=== PATIENT | female | born 1970 | race Caucasian/White ===

== ENCOUNTER 2020-09-13 10:38 | Inpatient (IN) | payer BC, SELFPAY ==
[2020-09-13] VITALS (10 sets, daily range): BP systolic 102–193; BP diastolic 56–143; PULSE 90–124; RESP 14–24; TEMP 36.6–37; O2SAT 21–98; BMI 49.9
--- NOTE | 2020-09-13 11:02 | CT_ITS ---
WS: [id number] CT cervical spine. Additional two-dimensional coronal and sagittal reconstruction was performed. 09/13 Clinical Data: fall, neck pain with rt side radiculopathy Comparison: None. DLP: 1168.[address] scans at [facility] use at least one of these dose optimization techniques: automat ed exposure control; mA and/or kV adjustment per patient size (includes targeted exams where dose is matched to clinical indication); or iterative reconstruction. Findings: No compression fractures are seen. There is disc space narrowing at C4-C5, C5-C6 and C6-C7. There is loss of the normal lordotic curvature. Anterior and posterior osteophyte formation is seen from C4 th rough C7. The spinous processes are in good alignment. The odontoid is unremarkable. There is no prev ertebral soft tissue swelling. The soft tissues of the cervical spine and the lung apices are not rem arkable. C2-C3: No disc bulge, canal stenosis or foraminal stenosis is seen. C3-C4: No disc bulge, canal stenosis or foraminal stenosis is seen. C4-C5: There is a posterior osteophyte disc complex causing mild canal stenosis. C5-C6: There is an osteophyte disc complex causing mild canal stenosis. C6-C7: There is a minimal osteophyte disc complex causing mild canal stenosis. C7-T1: No disc bulge, canal stenosis or foraminal stenosis is seen. CT/CT cervical spin wo con* [id number] Impression: 1. Negative for compression fracture. 2. 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 3. Posterior osteophyte disc complex causing mild canal stenosis at C4-C5 throu gh C6-C7.
--- NOTE | 2020-09-13 11:02 | XR_ITS ---
WS: [id number] Portable AP upright chest, 09/13/2020 Clinical Data: SOB Comparison: None. Findings: The heart is enlarged. The pulmonary vascularity is not increased. No pneumonia or pneumoth orax is seen. No nodules, masses or effusions are present. The aortic arch and descending aorta show tortuosity. XR/XR chest 1V portable [id number] Impression: Atherosclerosis and cardiomegaly.
--- NOTE | 2020-09-13 11:03 | ECG_ITS ---
[facility] Test Date: 2020-09-13 Pat Name: Venus Neil Department: Room: Gender: Female Services Host: : [id number] Requested By: Rocio Partida Order Number: [id number] José MD: Caitlin Lindo M.D. Measurements Intervals [place] Rate: 140 P: [place]: QRS: 49 QRSD: 99 T: 30 QT: 294 QTc: 449 Interpretive Statements ATRIAL FIBRILLATION WITH RAPID VENTRICULAR RESPONSE LOW QRS VOLTAGE IN PRECORDIAL LEADS [QRS DEFLECTION < 1.0 mV IN CHEST LEADS] NONSPECIFIC ST & T-WAVE ABNORMALITY No previous ECG available for comparison Electronically Signed On 09-13-2020 19:18:29 COMMUNITY DEVELOPMENT TECHNICIAN by Caitlin Lindo M.D. [id number]
[2020-09-13] MEDS: HYDROcodone-acetaminophen 5-325 mg Tablet 1 TAB PO ×2 (11:30→17:10)
--- NOTE | 2020-09-13 11:32 | ED_ITS ---
Documented by User: MANNY Magallon 09/13/20 17:19 HPI - Fall General: Chief Complaint: Fall Stated Complaint: FALL, NECK PAIN, DIFFICUTLY BREATHING Time Seen by Provider: 09/13/20 10:44 History of Present Illness: HPI Narrative: 49-year-old pleasant female presents to the emergency department with acute onset shortness of breath that started this morning. She reports sustained a [facility] on Friday, 2 days ago, reports onset of neck pain with radiculopathy pain to the right scapula past 24 hours. She reports bruising noted to the right breast from her fall. She attributes shortness of breath to pain she is experiencing in her neck. She reports history of hypertension, states does not have a primary care provider, denies bilateral lower extremity swelling or pain. She reports feels she cannot breathe upon exam. Denies cough congestion fever or chills. Has history of asthma. MD complaint: fall Onset (ago): day(s) (2) Fall from: standing Fall witnessed: yes, by bystander Place fall occurred: other ([employer]) Loss of consciousness: None Prolonged down time: no Symptoms prior to fall: none Location of injury: neck and chest Severity: moderate Quality: sharp and aching Associated symptoms-after fall: Reports neck pain and short of breath; Denies abdominal pain, chest pain, difficulty walking, headache(s) or lightheadedness Review of Systems General: Reports: 10 or more systems reviewed and unremarkable except in HPI and below Const: Reports: fatigue; Denies: fever(s), chills, body aches, malaise, night sweats or diaphoresis Eyes: Denies: blurry vision or eye redness ENMT: Denies: throat pain, dental pain or disequilibrium Card: Reports: dyspnea on exertion and orthopnea; Denies: chest pain, palpitations, irregular heart rhythm, lightheadedness or syncope Resp: Reports: dyspnea; Denies: productive cough, non-productive cough, wheezing or chest congestion GI: Denies: abdominal pain, nausea or vomiting : Denies: difficulty voiding or dysuria Musc: Reports: neck pain; Denies: back pain, joint pain, joint stiffness, muscle cramps or muscle weakness Skin/Breast: Denies: rash or pruritus Neuro: Denies: headache(s), weakness in extremities, difficulty walking, frequent falls or behavioral changes Psych: Denies: anxiety, depression, hopelessness, change in appetite or irritability Сергей/Lymph: Denies: easy bruising PFSH ED PFSH: Medical History (Updated 09/14/20 @ 12:22 by Eulalia Penny MD, [facility]) Asthma HTN (hypertension) Hypothyroidism Nonadherence to medication Obesity Post hysterectomy menopause Surgical History (Updated 09/13/20 @ 18:00 by Padma Ureña MD) H/O hysterectomy with oophorectomy History of cholecystectomy Family History (Updated 09/13/20 @ 18:01 by Padma Ureña MD) Mother CAD (coronary artery disease) Clotting disorder Social History (Updated 09/13/20 @ 18:01 by Padma Ureña MD) Smoking and tobacco status: never smoked Alcohol intake: current Alcohol intake frequency: holidays/special occasions only Substance/Drug Use: never Physical Exam Const: COMMON NORMALS: no acute distress, patient oriented x3, alert and well nourished EXAM LIMITATIONS: no altered mental status and no physical limitations GENERAL APPEARANCE: cooperative, well kempt, well developed, anxious and well hydrated; not comfortable, not ill appearing and not frail appearing NUTRITIONAL APPEARANCE: obese morbidly obese ORIENTATION/CONSCIOUSNESS: Yes awake, Yes oriented to person, Yes oriented to place and Yes oriented to time HENMT: COMMON NORMALS: normocephalic, atraumatic, Normal external nose present and moist oral mucous membranes HEAD & SCALP: normal to inspection, normocephalic and atraumatic FACE & SINUS: normal facial exam and face symmetric NOSE: Normal external nose present MOUTH: Normal oral and palatal mucosa present, lip normal and tongue normal Eye: COMMON NORMALS: Equal, round and reactive pupils present and EOMs intact bilaterally GENERAL EYE: appearance normal, both eyes and all related structures ALIGNMENT: Yes alignment normal EYELID: eyelids normal PUPIL : Yes Equal, round and reactive pupils present Neck/C-Spine: COMMON NORMALS: full ROM, no lymphadenopathy and supple GENERAL: Yes normal visual inspection, Yes trachea midline, No anterior neck swelling and Yes tender CERVICAL SPINE: Yes cervical ROM normal, Yes pain with cervical ROM with lateral flexion to the right, with lateral flexion to the left, with rotation to the right and with rotation to the left, Yes Cervical spine tenderness C3, C4, C5 and C6, Yes Paracervical muscle tenderness right and Yes Trapezius muscle tenderness right Lymph: LYMPHATIC: lymphedema (BLE) Chest: COMMONS NORMALS: normal inspection of the chest and normal palpation of entire chest wall Breast/axilla inspection: Yes abnormal inspection of the breast (ecchymosis to the anterior breast/chest wall, rt) Resp: COMMON NORMALS: normal respiratory effort, No retractions and clear to auscultation bilaterally EFFORT & INSPECTION: Yes able to speak in complete sentences, Yes symmetric chest movement, No abnormal respiratory pattern, Yes tachypneic, Yes labored, No Actively coughing, No retractions and No audible wheezes AUSCULTATION: clear to auscultation bilaterally and diminished lung sounds bilateral Cardio: COMMON NORMALS: S1 normal heart sound present, S2 normal heart sound present and Peripheral pulses 2+ throughout PALPATION: normal PMI RATE: tachycardic RHYTHM: abnormal rhythm irregularly irregular HEART SOUNDS: S1 normal heart sound present and S2 normal heart sound present PERIPHERAL PULSES: Peripheral pulses 2+ throughout GI: COMMON NORMALS: Normal to inspection, nondistended, normoactive bowel sounds present, Soft to palpation and non-tender INSPECTION: Yes normal to inspection PALPATION: Yes Soft to palpation : COMMON NORMALS: Yes no CVA tenderness BLADDER/KIDNEY EXAM: Yes no CVA tenderness Back/Pelvis: COMMON NORMALS: no CVA tenderness and thoracic and lumbar spine normal to inspection Extremity: COMMON NORMALS: normal to inspection and capillary refill normal Neuro: COMMON NORMALS: patient oriented x3 and no focal motor deficits SENSORIUM/ORIENTATION: Yes alert, Yes oriented to person, Yes oriented to place and Yes oriented to time Psych: COMMON NORMALS: mental status grossly normal, Normal thought process present and cooperative APPEARANCE: Yes well kempt ACTIVITY/MOTOR BEH AVIOR: Yes appropriate eye contact THOUGHT PROCESS: Normal thought process present Skin: COMMON NORMALS: no rashes or lesions noted and turgor normal GENERAL SKIN EXAM: no rashes or lesions noted and turgor normal Course ED course: 49-year-old female patient presents to the emergency department with elevated heart rate, 140s, irregular rhythm auscultated upon physical exam. EKG revealed atrial fibrillation with RVR, new onset atrial fibrillation, transfer of care to Dr. Penny -patient will most likely require admission due to new onset. Cardizem initiated. Vital Signs: Vital signs: Vital Signs Temperature 98.3 F 09/14/20 11:46 Pulse Rate 93 09/14/20 11:46 Respiratory Rate 18 09/14/20 11:46 Blood Pressure 150/118 09/14/20 11:46 Pulse Oximetry 93 09/14/20 11:46 MDM - Fall Lab Data: Labs: Lab Results 09/13/20 09/13/20 09/13/20 Range/Units 11:13 11:32 11:32 WBC 9.3 (4.0-10.0) 10^3/ uL RBC 4.70 (4.1-5.3) 10^6/u L Hgb 13.9 (11.5-15.3) g/dL Hct 44.8 (37.0-47.0) % MCV 95.3 (81-99) fL MCH 29.6 (28.0-34.0) pg MCHC 31.0 (30.0-36.0) g/dL RDW 13.5 (12.1-15.1) % Plt Count 240 (130-400) 10^3/c mm MPV 11.1 H (7.4-10.4) fL Neut % (Auto) 72.0 % Lymph % (Auto) 21.5 % [place] % (Auto) 5.5 % Eos % (Auto) 0.6 % Baso % (Auto) 0.2 % Neut # (Auto) 6.71 (1.8-7.7) 10^3/u L Lymph # (Auto) 2.0 (0.8-4.8) 10^3/u L [place] # (Auto) 0.5 (0.2-0.9) 10^3/u L Eos # (Auto) 0.1 (0.0-0.8) 10^3/u L Baso # (Auto) 0.0 (0.0-0.1) 10^3/u L Nucleated RBC % (a uto) 0 % Nucleated RBCs # 0.0 /100WBC D-Dimer 1.67 H (0-0.59) ug/mIFE U Sodium (136-145) mmol/L Potassium (3.5-5.1) mmol/L Chloride (98-107) mmol/L Carbon Dioxide (22-29) mmol/L Anion Gap (5-19) BUN (6-20) mg/dL Creatinine (0.5-0.9) mg/dL GFR Calculation (90-130) mL/min Glucose (65-115) mg/dL Calculated Osmolal ity (285-295) mOsm/k g Calcium (8.5-10.5) mg/dL Total Bilirubin (0.15-1.2) mg/dL AST (0-32) U/L ALT (0-33) U/L Alkaline Phosphata se (35-105) IU/L Troponin T Baselin e (0-10) ng/L NT-Pro-B Natriuret Pep (0-125) pg/mL Total Protein (6.6-8.7) g/dL Albumin (3.5-5.2) g/dL Globulin (1.3-4.6) g/dL Urine Color Yellow (Yellow) Urine Appearance Hazy A (CLEAR) Urine pH 5 (5-7) Ur Specific Gravit y 1.020 (1.005-1.030) Urine Protein 1+ H (Negative) Urine Glucose (UA) Norm (Normal) Urine Ketones Negative (Negative) Urine Blood Trace H (Negative) Urine Nitrate Positive H (Negative) Urine Bilirubin Neg (Negative) Urine Urobilinogen Norm (Negative) mg/dL Ur Leukocyte Zuleyma ase Negative (Negative) Urine RBC 0-4 H (0-2) /hpf Urine WBC 15-25 H (0-5) /hpf Ur Squamous Epith Cells 5-10 H (0-5) /hpf Amorphous Sediment Not Reportable Urine Bacteria 4+ H (NONE) /hpf 09/13/20 09/13/20 Range/Units 11:32 11:32 WBC (4.0-10.0) 10^3/ uL RBC (4.1-5.3) 10^6/u L Hgb (11.5-15.3) g/dL Hct (37.0-47.0) % MCV (81-99) fL MCH (28.0-34.0) pg MCHC (30.0-36.0) g/dL RDW (12.1-15.1) % Plt Count (130-400) 10^3/c mm MPV (7.4-10.4) fL Neut % (Auto) % Lymph % (Auto) % [place] % (Auto) % Eos % (Auto) % Baso % (Auto) % Neut # (Auto) (1.8-7.7) 10^3/u L Lymph # (Auto) (0.8-4.8) 10^3/u L [place] # (Auto) (0.2-0.9) 10^3/u L Eos # (Auto) (0.0-0.8) 10^3/u L Baso # (Auto) (0.0-0.1) 10^3/u L Nucleated RBC % (a uto) % Nucleated RBCs # /100WBC D-Dimer (0-0.59) ug/mIFE U Sodium 140 (136-145) mmol/L Potassium 4.5 (3.5-5.1) mmol/L Chloride 105 (98-107) mmol/L Carbon Dioxide 26 (22-29) mmol/L Anion Gap 13.5 (5-19) BUN 16 (6-20) mg/dL Creatinine 0.8 (0.5-0.9) mg/dL GFR Calculation 75.6 L (90-130) mL/min Glucose 110 (65-115) mg/dL Calculated Osmolal ity 292 (285-295) mOsm/k g Calcium 9.4 (8.5-10.5) mg/dL Total Bilirubin 0.4 (0.15-1.2) mg/dL AST 23 (0-32) U/L ALT 29 (0-33) U/L Alkaline Phosphata se 113 H (35-105) IU/L Troponin T Baselin e 24 H (0-10) ng/L NT-Pro-B Natriuret Pep 1457 H (0-125) pg/mL Total Protein 6.9 (6.6-8.7) g/dL Albumin 3.9 (3.5-5.2) g/dL Globulin 3.0 (1.3-4.6) g/dL Urine Color (Yellow) Urine Appearance (CLEAR) Urine pH (5-7) Ur Specific Gravit y (1.005-1.030) Urine Protein (Negative) Urine Glucose (UA) (Normal) Urine Ketones (Negative) Urine Blood (Negative) Urine Nitrate (Negative) Urine Bilirubin (Negative) Urine Urobilinogen (Negative) mg/dL Ur Leukocyte Zuleyma ase (Negative) Urine RBC (0-2) /hpf Urine WBC (0-5) /hpf Ur Squamous Epith Cells (0-5) /hpf Amorphous Sediment Urine Bacteria (NONE) /hpf Discharge Plan Discharge Patient Disposition: Admitted As Inpatient Admit Provider: Padma Ureña Clinical Impression: New onset atrial fibrillation, Hypertensive urgency Acute congestive heart failure Qualifiers: Heart failure type: unspecified Qualified Code(s): I50.9 - Heart failure, unspecified Condition: Stable Sign Out Sign Out Data: Patient Sign Out occurred on 09/13/20 at 11:40. Patient's care was discussed, and care was transferred from to Eulalia Penny MD, [facility]. Coding Level of Care Code ED [employer] for Chg Fwd Exam Comprehensive Documented by User: Elualia Penny MD, MSM 09/14/20 12:23 HPI - Fall General: Chief Complaint: Fall Stated Complaint: FALL, NECK PAIN, DIFFICUTLY BREATHING Time Seen by Provider: 09/13/20 10:44 [facility] ED PFSH: Medical History (Updated 09/14/20 @ 12:22 by Eulalia Penny MD, [facility]) Asthma HTN (hypertension) Hypothyroidism Nonadherence to medication Obesity Post hysterectomy menopause Surgical History (Updated 09/13/20 @ 18:00 by Padma Ureña MD) H/O hysterectomy with oophorectomy History of cholecystectomy Family History (Updated 09/13/20 @ 18:01 by Padma Ureña MD) Mother CAD (coronary artery disease) Clotting disorder Social History (Updated 09/13/20 @ 18:01 by Padma Ureña MD) Smoking and tobacco status: never smoked Alcohol intake: current Alcohol intake frequency: holidays/special occasions only Substance/Drug Use: never Course Vital Signs: Vital signs: Vital Signs Temperature 98.3 F 09/14/20 11:46 Pulse Rate 93 09/14/20 11:46 Respiratory Rate 18 09/14/20 11:46 Blood Pressure 150/118 09/14/20 11:46 Pulse Oximetry 93 09/14/20 11:46 MDM - Fall MDM Narrative: Medical decision making narrative: Kindly evaluate the midlevel providers note for complete history and physical. I also evaluated this patient and examined her today. 49-year-old female patient who came into the emergency department with pain following a fall a few days ago. However during evaluation she was noted to be in atrial fibrillation with rapid ventricular response. She has no prior history of A. fib. She was worked up as she appears to be in congestive heart failure also. She was also significantly hypotensive and required multiple intravenous medications to bring down her blood pressure to acceptable levels. She also required intravenous diltiazem for rate control. She is admitted for further evaluation and management as a new onset A. fib. Medical Records: Attestation: I reviewed the patient's medical records. Lab Data: Attestation: I reviewed the patient's lab results. Labs: Lab Results 09/13/20 09/13/20 09/13/20 Range/Units 11:13 11:32 11:32 WBC 9.3 (4.0-10.0) 10^3/ uL RBC 4.70 (4.1-5.3) 10^6/u L Hgb 13.9 (11.5-15.3) g/dL Hct 44.8 (37.0-47.0) % MCV 95.3 (81-99) fL MCH 29.6 (28.0-34.0) pg MCHC 31.0 (30.0-36.0) g/dL RDW 13.5 (12.1-15.1) % Plt Count 240 (130-400) 10^3/c mm MPV 11.1 H (7.4-10.4) fL Neut % (Auto) 72.0 % Lymph % (Auto) 21.5 % [place] % (Auto) 5.5 % Eos % (Auto) 0.6 % Baso % (Auto) 0.2 % Neut # (Auto) 6.71 (1.8-7.7) 10^3/u L Lymph # (Auto) 2.0 (0.8-4.8) 10^3/u L [place] # (Auto) 0.5 (0.2-0.9) 10^3/u L Eos # (Auto) 0.1 (0.0-0.8) 10^3/u L Baso # (Auto) 0.0 (0.0-0.1) 10^3/u L Nucleated RBC % (a uto) 0 % Nucleated RBCs # 0.0 /100WBC D-Dimer 1.67 H (0-0.59) ug/mIFE U Sodium (136-145) mmol/L Potassium (3.5-5.1) mmol/L Chloride (98-107) mmol/L Carbon Dioxide (22-29) mmol/L Anion Gap (5-19) BUN (6-20) mg/dL Creatinine (0.5-0.9) mg/dL GFR Calculation (90-130) mL/min Glucose (65-115) mg/dL Calculated Osmolal ity (285-295) mOsm/k g Calcium (8.5-10.5) mg/dL Total Bilirubin (0.15-1.2) mg/dL AST (0-32) U/L ALT (0-33) U/L Alkaline Phosphata se (35-105) IU/L Troponin T Baselin e (0-10) ng/L NT-Pro-B Natriuret Pep (0-125) pg/mL Total Protein (6.6-8.7) g/dL Albumin (3.5-5.2) g/dL Globulin (1.3-4.6) g/dL Urine Color Yellow (Yellow) Urine Appearance Hazy A (CLEAR) Urine pH 5 (5-7) Ur Specific Gravit y 1.020 (1.005-1.030) Urine Protein 1+ H (Negative) Urine Glucose (UA) Norm (Normal) Urine Ketones Negative (Negative) Urine Blood Trace H (Negative) Urine Nitrate Positive H (Negative) Urine Bilirubin Neg (Negative) Urine Urobilinogen Norm (Negative) mg/dL Ur Leukocyte Zuleyma ase Negative (Negative) Urine RBC 0-4 H (0-2) /hpf Urine WBC 15-25 H (0-5) /hpf Ur Squamous Epith Cells 5-10 H (0-5) /hpf Amorphous Sediment Not Reportable Urine Bacteria 4+ H (NONE) /hpf 09/13/20 09/13/20 Range/Units 11:32 11:32 WBC (4.0-10.0) 10^3/ uL RBC (4.1-5.3) 10^6/u L Hgb (11.5-15.3) g/dL Hct (37.0-47.0) % MCV (81-99) fL MCH (28.0-34.0) pg MCHC (30.0-36.0) g/dL RDW (12.1-15.1) % Plt Count (130-400) 10^3/c mm MPV (7.4-10.4) fL Neut % (Auto) % Lymph % (Auto) % [place] % (Auto) % Eos % (Auto) % Baso % (Auto) % Neut # (Auto) (1.8-7.7) 10^3/u L Lymph # (Auto) (0.8-4.8) 10^3/u L [place] # (Auto) (0.2-0.9) 10^3/u L Eos # (Auto) (0.0-0.8) 10^3/u L Baso # (Auto) (0.0-0.1) 10^3/u L Nucleated RBC % (a uto) % Nucleated RBCs # /100WBC D-Dimer (0-0.59) ug/mIFE U Sodium 140 (136-145) mmol/L Potassium 4.5 (3.5-5.1) mmol/L Chloride 105 (98-107) mmol/L Carbon Dioxide 26 (22-29) mmol/L Anion Gap 13.5 (5-19) BUN 16 (6-20) mg/dL Creatinine 0.8 (0.5-0.9) mg/dL GFR Calculation 75.6 L (90-130) mL/min Glucose 110 (65-115) mg/dL Calculated Osmolal ity 292 (285-295) mOsm/k g Calcium 9.4 (8.5-10.5) mg/dL Total Bilirubin 0.4 (0.15-1.2) mg/dL AST 23 (0-32) U/L ALT 29 (0-33) U/L Alkaline Phosphata se 113 H (35-105) IU/L Troponin T Baselin e 24 H (0-10) ng/L NT-Pro-B Natriuret Pep 1457 H (0-125) pg/mL Total Protein 6.9 (6.6-8.7) g/dL Albumin 3.9 (3.5-5.2) g/dL Globulin 3.0 (1.3-4.6) g/dL Urine Color (Yellow) Urine Appearance (CLEAR) Urine pH (5-7) Ur Specific Gravit y (1.005-1.030) Urine Protein (Negative) Urine Glucose (UA) (Normal) Urine Ketones (Negative) Urine Blood (Negative) Urine Nitrate (Negative) Urine Bilirubin (Negative) Urine Urobilinogen (Negative) mg/dL Ur Leukocyte Zuleyma ase (Negative) Urine RBC (0-2) /hpf Urine WBC (0-5) /hpf Ur Squamous Epith Cells (0-5) /hpf Amorphous Sediment Urine Bacteria (NONE) /hpf Imaging Data^: Other CT: Radiologist's impression: [place] [address] CT Scan Report Signed Patient: Jason Neil #: [id number] : 1970Acct#:[id number] Age/Sex: 49 / FADM Date: 09/13/20 Loc: ERRoom/Bed: Attending Dr: Ordering Provider/Ordering MD: Rocio Trujillo Date of Service: 09/13/20 Procedure(s): CT cervical spin wo con* [id number] Accession Number(s): [id number] Report Number: [id number] WS: [id number] CT cervical spine. Additional two-dimensional coronal and sagittal reconstruction was performed. 09/13/2020 Clinical Data: fall, neck pain with rt side radiculopathy Comparison: None. DLP: 1168.[address] scans at [facility] use at least one of these dose optimization techniques: automated exposure control; mA and/or kV adjustment per patient size (includes targeted exams where dose is matched to clinical indication); or iterative reconstruction. Findings: No compression fractures are seen. There is disc space narrowing at C4-C5, C5-C6 and C6-C7. There is loss of the normal lordotic curvature. Anterior and posterior osteophyte formation is seen from C4 through C7. The spinous processes are in good alignment. The odontoid is unremarkable. There is no prevertebral so ft tissue swelling. The soft tissues of the cervical spine and the lung apices are not remarkable. C2-C3: No disc bulge, canal stenosis or foraminal stenosis is seen. C3-C4: No disc bulge, canal stenosis or foraminal stenosis is seen. C4-C5: There is a posterior osteophyte disc complex causing mild canal stenosis. C5-C6: There is an osteophyte disc complex causing mild canal stenosis. C6-C7: There is a minimal osteophyte disc complex causing mild canal stenosis. C7-T1: No disc bulge, canal stenosis or foraminal stenosis is seen. CT/CT cervical spin wo con* [id number] Impression: 1. Negative for compression fracture. 2. 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 3. Posterior osteophyte disc complex causing mild canal stenosis at C4-C5 through C6-C7. Dictated By:Carolina Macias MD Signed By:Carolina Macias MDSigned Date/Time:09/13/20 1203 DD/ 1153 CTA Chest: Radiologist's impression: [address] [address] [address] Scan Report Signed Patient: Jason Neil #: [id number] : 1970Acct#:[id number] Age/Sex: 49 / FADM Date: 09/13/20 [facility] Attending Dr: Ordering Provider/Ordering MD: Eulalia Penny MD, [facility] Date of Service: 09/13/20 Procedure(s): CT angio chest PE protcl 87477 Accession Number(s): [id number] Report Number: [id number] WS: [id number] CTA OF THE CHEST WITH PULMONARY EMBOLISM PROTOCOL TECHNIQUE: High-resolution contrast enhanced CTA of the chest with coronal and sagittal reformatted images with pulmonary embolism protocol. MIP images are also reviewed. CLINICAL INFORMATION: SOB, tachycardia COMPARISON: None. DLP: 2338.[address] scans at [facility] use at least one of these dose optimizat ion techniques: automated exposure control; mA and/or kV adjustment per patient size (includes targeted exams where dose is matched to clinical indication); or iterative reconstruction. FINDINGS: Proximal main pulmonary arteries are normal. Segmental and subsegmental pulmonary arteries are normal. No filling defects. No evidence of pulmonary embolus. Normal caliber thoracic aorta. Coronary calcification. Mild chronic emphysematous changes. Small bilateral pleural effusions with bibasilar atelectasis. Slight hazy infiltrates in the lung bases. Fibrosis left lobe Small esophageal hiatal hernia. No mediastinal or hilar lymphadenopathy. No axillary lymphadenopathy. Cardiomegaly. Diffuse body wall anasarca. Cholecystectomy clips. Hypertrophic changes thoracic spine. CT/CT angio chest PE protcl 10944 IMPRESSION: 1. No evidence of pulmonary embolus. 2. Mild chronic emphysematous changes with small bilateral pleural effusions. Subsegmental atelectasis in the lung bases. 3. Slight hazy infiltrates in the lung bases. Recommend correlation for pneumonitis. 4. Cardiomegaly. 5. Prior cholecystectomy. 6. Diffuse body wall anasarca. Dictated By:Chris Busby MD Signed By:Chris Busby MDSigned Date/Time:09/13/201338 DD/ 133 CXR: Radiologist's impression: [address] [address] XRay Report Signed Patient: Jason Neil #: [id number] : 1970Acct#:[id number] Age/Sex: 49 / FADM Date: 09/13/20 [facility] Attending Dr: Ordering Provider/Ordering MD: Rocio Trujillo Date of Service: 09/13/20 Procedure(s): XR chest 1V portable [id number] Accession Number(s): [id number] Report Number: [id number] WS: [id number] Portable AP upright chest, 09/13/2020 Clinical Data: SOB Comparison: None. Findings: The heart is enlarged. The pulmonary vascularity is not increased. No pneumonia or pneumothorax is seen. No nodules, masses or effusions are present. The aortic arch and descending aorta show tortuosity. XR/XR chest 1V portable 84532 Impression: Atherosclerosis and cardiomegaly. Dictated By:Carolina Macias MD Signed By:Carolina Macias MDSigned Date/Time:09/13/20 1114 DD/ 1111 Xray Ortho: Radiologist's impression: [facility] [address] [facility] [address] XRay Report Signed Patient: Jason Neil #: [id number] : 1970Acct#:[id number] Age/Sex: 49 / FADM Date: 09/13/20 Loc: ERRoom/Bed: Attending Dr: Ordering Provider/Ordering MD: Eulalia Penny MD, [facility] Date of Service: 09/13/20 Procedure(s): XR shoulder RT min 2V* [id number] Accession Number(s): [id number] Report Number: [id number] WS: [id number] Right shoulder, 3 views, 09/13/2020 Clinical Data: fall Comparison: None. Findings: No fractures or dislocations are seen. The AC joint is normal. The adjacent right clavicle, right scapula and ribs are normal. The soft tissues are unremarkable. There is a monitor lead on the right chest. XR/XR shoulder RT min 2V* [id number] Impression: Negative right shoulder. Dictated By:Carolina Macias MD Signed By:Carolina Macias MDSigned Date/Time:09/13/20 1205 DD/ 1204 EKG Data^: EKG 1: Attestation: I personally reviewed and interpreted this EKG as follows: EKG interpretation date: 09/13/20 EKG interpretation time: 11:38 Prior EKG tracings: not available for review Interpretation: Atrial fibrillation with RVR. Heart rate [address] changes. EKG 2: Attestation: I personally reviewed and interpreted this EKG as follows: EKG interpretation date: 09/13/20 EKG interpretation time: 13:40 Prior EKG tracings: available for review Interpretation: A. fib with RVR. Heart rate [address] changes. No significant change Critical Care Time Critical Care Time: Critical Care Time: Yes Total Critical Care Time: 30 Attestation: This case had a high probability of a clinically significant, sudden, or life t hreatening deterioration of this patient's condition which required my full and direct attention, intervention and personal management. Patient presented with hypertensive urgency and atrial fibrillation with rapid ventricular response. She required intravenous calcium channel blockers and beta-blockers to control heart rate and blood pressure. Discharge Plan Discharge Patient Disposition: Admitted As Inpatient Admit Provider: Padma Ureña Clinical Impression: New onset atrial fibrillation, Hypertensive urgency Acute congestive heart failure Qualifiers: Heart failure type: unspecified Qualified Code(s): I50.9 - Heart failure, unspecified Condition: Stable Sign Out Sign Out Data: Patient Sign Out occurred on 09/13/20 at 11:40. Patient's care was discussed, and care was transferred from to Eulalia Penny MD, [facility] [place]. 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
[2020-09-13 11:43] LABS: Basophils % 0.2 %; Eosinophils # 0.1 10^3/uL (0.0-0.8); Eosinophils % 0.6 %; Hematocrit 44.8 % (37.0-47.0); Hemoglobin 13.9 g/dL (11.5-15.3); Lymphocytes % 21.5 %; Mean Corpuscular Hemoglobin 29.6 pg (28.0-34.0); Mean Corpuscular Volume 95.3 fL (81-99); Mean Platelet Volume 11.1 fL (7.4-10.4); Monocytes # 0.5 10^3/uL (0.2-0.9); Monocytes % 5.5 %; Neutrophils # 6.71 10^3/uL (1.8-7.7); Nucleated Red Blood Cells % 0 %; Platelet Count 240 10^3/cmm (130-400); Red Cell Distribution Width 13.5 % (12.1-15.1); White Blood Count 9.3 10^3/uL (4.0-10.0)
--- NOTE | 2020-09-13 11:47 | XR_ITS ---
WS: [id number] Right shoulder, 3 views, 09/13/2020 Clinical Data: fall Comparison: None. Findings: No fractures or dislocations are seen. The AC joint is normal. The adjacent right clavicle, right sca pula and ribs are normal. The soft tissues are unremarkable. There is a monitor lead on the right chest. XR/XR shoulder RT min 2V* [id number] Impression: Negative right shoulder.
[2020-09-13 12:01] LABS: Add Urine Microscopic? YES; Bilirubin Urine Neg (Negative); Blood Urine Trace (Negative); Glucose Urine UA Norm (Normal); Ketones Urine Negative (Negative); Leukocyte Esterase Urine Negative (Negative); Nitrate Urine Positive (Negative); Protein Urine 1+ (Negative); Urine Appearance Hazy (CLEAR); Urine Color Yellow (Yellow); Urobilinogen Urine Norm (Negative); pH Urine 5 (5-7)
[2020-09-13 12:06] LABS: Troponin(5th) Baseline 24 ng/L (0-10)
[2020-09-13 12:08] LABS: RBC Urine 0-4 /hpf (0-2)
[2020-09-13 12:09] LABS: Bacteria Urine 4+ /hpf
[2020-09-13 12:10] LABS: Add Urine Culture? Yes; WBC Urine 15-25 /hpf (0-5)
[2020-09-13 12:14] LABS: Alanine Aminotransferase 29 U/L (0-33); Albumin Level 3.9 g/dL (3.5-5.2); Alkaline Phosphatase 113 IU/L (35-105); Anion Gap 13.5 (5-19); Aspartate Amino Transferase 23 U/L (0-32); Blood Urea Nitrogen 16 mg/dL (6-20); Calcium 9.4 mg/dL (8.5-10.5); Carbon Dioxide 26 mmol/L (22-29); Chloride 105 mmol/L (98-107); Glomerular Filtration Rate 75.6 mL/min (90-130); Glucose 110 mg/dL (65-115); NT Pro B Type Natriuretic Pept 1457 pg/mL (0-125); Osmolality Calculated 292 mOsm/kg (285-295); Potassium 4.5 mmol/L (3.5-5.1); Sodium 140 mmol/L (136-145); Total Bilirubin 0.4 mg/dL (0.15-1.2); Total Protein 6.9 g/dL (6.6-8.7)
[2020-09-13 12:33] LABS: D Dimer 1.67 ug/mIFEU (0-0.59)
--- NOTE | 2020-09-13 12:40 | CT_ITS ---
WS: [id number] CTA OF THE CHEST WITH PULMONARY EMBOLISM PROTOCOL TECHNIQUE: High-resolution contrast enhanced CTA of the chest with coronal and sagittal reformatted i mages with pulmonary embolism protocol. MIP images are also reviewed. CLINICAL INFORMATION: SOB, tachycardia COMPARISON: None. DLP: 2338.[address] scans at [facility] use at least one of these dose optimization techniques: automat ed exposure control; mA and/or kV adjustment per patient size (includes targeted exams where dose is matched to clinical indication); or iterative reconstruction. FINDINGS: Proximal main pulmonary arteries are normal. Segmental and subsegmental pulmonary arteries are normal . No filling defects. No evidence of pulmonary embolus. Normal caliber thoracic aorta. Coronary calci fication. Mild chronic emphysematous changes. Small bilateral pleural effusions with bibasilar atelec tasis. Slight hazy infiltrates in the lung bases. Fibrosis left lobe Small esophageal hiatal hernia. No mediastinal or hilar lymphadenopathy. No axillary lymphadenopathy. Cardiomegaly. Diffuse body wall anasarca. Cholecystectomy clips. Hypertrophic changes thoracic spine. CT/CT angio chest PE protcl [id number] IMPRESSION: 1. No evidence of pulmonary embolus. 2. Mild chronic emphysematous changes with small bilateral pleural effusions. Subsegmental atelectasis in the lung bases. 3. Slight hazy infiltrates in the lung bases. Recommend correlation for pneumo nitis. 4. Cardiomegaly. 5. Prior cholecystectomy. 6. Diffuse body wall anasarca.
--- NOTE | 2020-09-13 13:03 | ECG_ITS ---
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 Measurements Intervals [place] Rate: 107 P: NE: QRS: 54 QRSD: 87 T: 33 QT: 341 QTc: 457 Interpretive Statements ATRIAL FIBRILLATION WITH RAPID VENTRICULAR RESPONSE LOW QRS VOLTAGE IN PRECORDIAL LEADS [QRS DEFLECTION < 1.0 mV IN CHEST LEADS] ABNORMAL RHYTHM ECG Compared to ECG 09/13/2020 11:11:39 T-wave abnormality no longer present Electronically Signed On 09-13-2020 19:21:27 JOURNEYMAN PLUMBER by Caitlin Lindo M.D. [id number] [place]
[2020-09-13] MEDS: iohexol 350 mg/mL 100 mL Btl IV ×2 (13:21)
--- NOTE | 2020-09-13 13:43 | PC.NURSE ---
EKG done at 1340 and shown to ER doctor
[2020-09-13] MEDS: FUROsemide 10 mg/mL SDV 4mL 40 MG IVP (14:25)
[2020-09-13] MEDS: morphine 4 mg/mL SDV 1 mL IVP (14:40)
[2020-09-13] MEDS: ondansetron 2 mg/ML SDV 2 mL 4 MG IVP (14:40)
--- NOTE | 2020-09-13 15:11 | P.HP_ITS ---
Providers/Chief Complaint Admitting Physician: Padma Ureña M.D Chief Complaint: FALL, NECK PAIN, DIFFICUTLY BREATHING History of Present Illness 49-year-old with past medical history of morbid obesity with BMI of 49kg/m2, asthma, hypothyroidism, hypertension and medical non-complliance due to lack of insurance who presented to the hospital with with shortness of breath. Patient stated this started early today. Denied any chest pain or palpitation. Also denied any recent orthopnea. Noted lower extremity swelling after prolonged ottoniel ding. No prior cardiac issues. In addition to this she stated she has been experiencing right sided constant neck pain radiating to right upper extremity after she sustained a fall earlier this week on friday. Patient stated she was pushing the cart at [place] when this occurred. Lost her balance. Denied any symptoms prior to event. No LOC. No recent fever, chills, nausea or vomiting. Denied dysuria, frequency or urgency. No abdominal pain, diarrhea or constipation. Upon arrival to emergency room for evaluation her initial vitals showed a respiratory rate of 20, temperature of 98.6? blood pressure 193/143, and heart rate of 120. initial laboratory workup showed a WBC of 9.3, hemoglobin of 13.9, hematocrit of 44.8 and a platelet count of 240. sodium 140, potassium 4.5, chloride 105, bicarb 26, BUN 16 and creatinine of 0.8. Glucose of 110. AST of 23, ALT of 29 and alkaline phosphatase of 113. initial troponin was 24. proBNP of 1457. Urinalysis showed positive nitrite, negative leukocyte esterase and 15 to 25 wbc's. Imaging studies included CT cervical spine which was negative for any acute fractures. Shoulder x-ray on right was negative. Was noted to have osteoarthritis at multiple levels. Chest x-ray showed cardiomegaly. CTA of chest PE protocol was performed which did not show any evidence of pulmonary embolism however was noted to have mild chronic emphysematous changes with small bilateral pleural effusions. Slight hazy infiltrate in lung bases. Again cardiomegaly was noted with diffuse body wall anasarca. EKG confirmed atrial fibrillation with rapid ventricular response. Patient was given cardizem 25mg IV x 1. In addition was given lasix 40 mg IV x 1, zofran 4 mg IV x1 and morphine 4 mg IV x 1. Patient was doing well without any discomfort at the time of my eval. Review of Systems General: Reports: 10 or more systems reviewed and unremarkable except in HPI and below Medications/Allergies Home Medications Medication Instructions Recorded Confirmed Last Taken Type Oil Hormones See Rx Instructions .ROUTE .COMPLEX 09/13/20 09/13/20 09/13/20 History diphenhydramine-acetaminophen 1 - 2 tab PO Q4H PRN 09/13/20 09/13/20 09/13/20 History [Tylenol PM Extra Strength] loperamide [Imodium] 2 mg PO Q4H PRN 09/13/20 09/13/20 09/11/20 History Allergies Allergy/AdvReac Type Severity Reaction Status Date / Time No Known Allergies Allergy Verified 09/13/20 10:48 PFSH Acute PFSH: Medical History (Updated 09/13/20 @ 18:00 by Padma Ureña MD) Asthma HTN (hypertension) Hypothyroidism Nonadherence to medication Obesity Post hysterectomy menopause Surgical History (Updated 09/13/20 @ 18:00 by Padma Ureña MD) H/O hysterectomy with oophorectomy History of cholecystectomy Family History (Updated 09/13/20 @ 18:01 by Padma Ureña MD) Mother CAD (coronary artery disease) Clotting disorder Social History (Updated 09/13/20 @ 18:01 by Padma Ureña MD) Smoking and tobacco status: never smoked Alcohol intake: current Alcohol intake frequency: holidays/special occasions only Substance/Drug Use: never Vitals/I&O/Wt Last Vital Signs Temp 98.6 F 09/13/20 10:39 Pulse 117 H 09/13/20 14:45 Resp 17 09/13/20 14:45 BP 192/127 09/13/20 14:45 Pulse Ox 21 L 09/13/20 14:45 Weight last 48 hrs Weight 136.078 kg Physical Exam Narrative: EXAM NARRATIVE: General: alert,awake, oriented x 3, NAD HEENT: Grossly unremarkable CVS: Irregularly irregular Chest : CTABL, no wheezing ABD; Soft NT,ND Ext : Nonpitting edema bilaterally Data : 09/13/20 11:32 09/13/20 11:32 A&P Assessment and plan (1) New onset atrial fibrillation: Status: Acute (2) Acute congestive heart failure: Status: Acute (3) Neck pain: Status: Acute (4) Fall: Status: Acute (5) Abnormal finding on urinalysis: Status: Acute Newly diagnosed Atrial Fibrillation with rapid ventricular response - S/P Cardizem 25 mg IV x 1 - May start on cardizem gtt to titrate to keep HR less than 105 - ECHO ordered - perform once HR < 100 - Aspirin 325 mg PO daily - Metoprolol 25 mg PO BID - TSH, mag in am - Avoid caffeine / stimulants - Consider cardiology consult Troponin elevation - Initial 24 - Follow up on repeat trend - Likely to have some degree due to rapid rate - Will hiral need ischemic work up prior to d/C - Aspirin 325 mg PO daily - Lipid panel,A1c in AM Acute respiratory distress due to HF exacerbation - Likey due to rapid rate / Fluid overload - Pro-BNP 1457 - Chest x-ray - Cardiomegaly w/o pulmonary vascular congestion - CTA chest - No PE, Cardiomegaly, anasarca - Supplemental 02 as needed - Will start on Lasix 20 mg IV BID Recent Fall with neck pain - CT cervical - No acute fracture - R.Shoulder x-ray - No acute fracture - Pain control - OT consult Suspected UTI - Possible contamination - UA positive for nitrates - Follow up on culture - Rocephin 1g IV q24hr Hx of Hypertension/Hypothyroidism - Non-compliant with medication - Unknown meds or doses Hx of Asthma - No wheezing on exam - Xopenex PRN for dyspnea DVT ppx - Lovenox 40 mg SQ daily Attestations Medical Necessity Statement*: Patient wanted to the hospital with new onset atrial fibrillation, fluid overload requiring IV antihypertensive and Lasix. Anticipate over 2 midnights stay in hospital for evaluation and treatment. Time Spent in Patient Care: Greater than 35 minutes (>than 50% of time spent in counselling and/or direct pt care on unit) . Coding Level of Care Code Acute Produce Assistant for g Fwd Diagnoses New onset atrial fibrillation I48.91 Acute congestive heart failure I50.9 Neck pain M54.2 Fall W19.XXXA Abnormal finding on urinalysis R82.90
[2020-09-13 15:14] LABS: Troponin 5 2HR 22.19 ng/L (0-10)
[2020-09-13 15:15] LABS: Troponin 5 2HR Delta -1.81 ABS# (0-10)
[2020-09-13] MEDS: aspirin 325 mg Tablet PO (16:26)
[2020-09-13] MEDS: labetalol 5 mg/mL SDV 20mL 10 MG IVP (16:36)
--- NOTE | 2020-09-13 17:03 | ECG_ITS ---
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 Measurements Intervals [place] Rate: 113 P: [place]: QRS: 66 QRSD: 102 T: 44 QT: 330 QTc: 454 Interpretive Statements ATRIAL FIBRILLATION WITH RAPID VENTRICULAR RESPONSE LOW QRS VOLTAGE IN PRECORDIAL LEADS [QRS DEFLECTION < 1.0 mV IN CHEST LEADS] ABNORMAL RHYTHM ECG Compared to ECG 09/13/2020 11:37:51 No significant changes Electronically Signed On 09-13-2020 19:21:04 PLANT PACKER by Caitlin Lindo M.D. [id number]
[2020-09-13] MEDS: cefTRIAXone 1,000 MG in sodium chloride 0.9% (plus) 50 ML 100 MG IV (17:07)
[2020-09-13] MEDS: enoxaparin 40 mg/0.4 mL Syringe SUBCUT (17:09)
--- NOTE | 2020-09-13 17:28 | PC.NURSE ---
PER DR. REID, PLEASE GIVE 25 MG METOPROLOL NOW, ALSO ORDER BID BUT HOLD THIS EVENINGS SCHEDULED DOSE AND GIVE THE ONE TIME ORDERED DOSE.
[2020-09-13] MEDS: metoprolol tartrate 25 mg Tablet PO (17:37)
[2020-09-13 19:09] LABS: Troponin 5 6HR 21.52 ng/L (0-10)
[2020-09-13 19:14] LABS: Troponin 5 6HR Delta -2.48 ng/L (0-12)
[2020-09-14] VITALS (15 sets, daily range): BP systolic 133–164; BP diastolic 83–129; PULSE 88–106; RESP 16–28; TEMP 36.2–36.9; O2SAT 92–96
--- NOTE | 2020-09-14 05:00 | USCV_ITS ---
BismarkdonnaabbyVenus reardon Age: 49 Gender: F : 1970 Exam Date: 09/14/2020 10:33 Ordering Phys: Padma Ureña MD Technologist: Amado Charles Exam Location: [facility] [place] Indication: CHEST PAIN SOB BP: 141 / 95 HR: 97 Rhythm: Sinus Technical Quality: Poor MEASUREMENTS (Male / Female) Normal Values 2D ECHO LV Diastolic Diameter PLAX 4.8 cm 4.2 - 5.9 / 3.9 - 5.3 cm LV Systolic Diameter PLAX 3.8 cm IVS Diastolic Thickness 1.0 cm 0.6 - 1.0 / 0.6 - 0.9 cm IVS Systolic Thickness 1.3 cm LVPW Diastolic Thickness 1.2 cm 0.6 - 1.0 / 0.6 - 0.9 cm LVPW Systolic Thickness 1.4 cm LVOT Diameter 2.0 cm LV Ejection Fraction 2D Teich 43.3 % LV Ejection Fraction MOD 2C 59.5 % LV Ejection Fraction 2C AL 60.9 % LA Diameter 4.5 cm LA Width 4.6 cm LA Height 6.8 cm RA Width 4.5 cm RA Height 6.4 cm Aorta at Sinotubular Diameter 2.4 cm M-MODE LV Diastolic Diameter MM 5.3 cm 4.2 - 5.9 / 3.9 - 5.3 cm LV Systolic Diameter MM 3.4 cm LV Ejection Fraction MM Teich 66.7 % IVS Diastolic Thickness MM 1.0 cm 0.6 - 1.0 / 0.6 - 0.9 cm IVS Systolic Thickness MM 1.8 cm LVPW Diastolic Thickness MM 1.2 cm 0.6 - 1.0 / 0.6 - 0.9 cm LVPW Systolic Thickness MM 1.8 cm RV Diastolic Diameter MM 1.9 cm Aortic Annulus Diameter 3.4 cm LA Ao Ratio MM 1.3 MV E Point Septal Separation 0.9 cm DOPPLER AV Peak Velocity 149.0 cm/s LVOT Peak Velocity 91.0 cm/s AV Area Cont Eq vti 1.8 cm squared AV Area Cont Eq pk 1.9 cm squared MV Area PHT 5.0 cm squared Mitral E to A Ratio 3.8 MV E' Velocity 71.5 cm/s Mitral E to MV E' Ratio 15.2 Mitral E to LV E' Lateral Ratio 14.9 Mitral E to LV E' Septal Ratio 15.7 TR Peak Velocity 177.4 cm/s TR Peak Gradient 12.6 mmHg TR Mean Velocity 70.9 cm/s TR Mean Gradient 3.7 mmHg TR Velocity Time Integral 28.4 cm TV Peak E Velocity 72.0 cm/s Right Atrial Pressure 3.0 mmHg Pulmonary Artery Systolic Pressu 15.6 mmHg PV Peak Velocity 73.0 cm/s FINDINGS Left Ventricle Normal left ventricular cavity size. Normal left ventricular systolic function. No regional wall motion abnormalities. Left ventricular ejection fraction is estimated at 60 %. Grade III/IV diastolic dysfunction (restrictive filling pattern), severely elevated filling pressures. Right Ventricle The right ventricle is normal in size and function. Right Atrium The right atrium is normal in size. Left Atrium Moderately increased left atrial size. Mitral Valve Moderately thickened mitral valve. No mitral valve stenosis. Moderate mitral annular calcification. Moderate mitral valve regurgitation. Aortic Valve Severe aortic valve calcification. Moderate aortic valve stenosis, mean gradient 3.4 mmHg, [place] 1.8 cm squared. No aortic valve regurgitation. Tricuspid Valve Thickened tricuspid valve. No tricuspid valve stenosis. Severe tricuspid valve regurgitation. Pulmonic Valve Structurally normal pulmonic valve without significant stenosis. There is no pulmonic regurgitation. Pericardium Normal pericardium without effusion. Aorta Normal ascending aorta dimension. CONCLUSIONS 1-Normal left ventricular cavity size. Normal left ventricular systolic function. No regional wall motion abnormalities. Left ventricular ejection fraction is estimated at 60 %. Grade III/IV diastolic dysfunction (restrictive filling pattern), severely elevated filling pressures. 2-Severe aortic valve calcification. Moderate aortic valve stenosis, mean gradient 3.4 mmHg, [place] 1.8 cm squared. No aortic valve regurgitation. 3-Moderately thickened mitral valve. No mitral valve stenosis. Moderate mitral annular calcification. Moderate mitral valve regurgitation. 4-Thickened tricuspid valve. No tricuspid valve stenosis. Severe tricuspid valve regurgitation. 5-There is no pericardial effusion. 6-Pulmonary artery systolic pressure is within normal limits. 7-Right atrial pressure is around 5 mm of mercury. 8-There are no prior echocardiogram studies to compare. Marcela Lai MD (Electronically Signed) Final Date: 14 September 2020 18:11 S
[2020-09-14 05:09] LABS: Nucleated Red Blood Cells % 0 %
[2020-09-14 05:31] LABS: Basophils % 0.2 %; Eosinophils # 0.1 10^3/uL (0.0-0.8); Eosinophils % 1.1 %; Hematocrit 41.9 % (37.0-47.0); Hemoglobin 12.5 g/dL (11.5-15.3); Lymphocytes # 1.8 10^3/uL (0.8-4.8); Lymphocytes % 28.9 %; Mean Corpuscular HGB Conc 29.8 g/dL (30.0-36.0); Mean Corpuscular Hemoglobin 29.9 pg (28.0-34.0); Mean Corpuscular Volume 100.2 fL (81-99); Mean Platelet Volume 12.2 fL (7.4-10.4); Monocytes # 0.5 10^3/uL (0.2-0.9); Monocytes % 7.9 %; Neutrophils # 3.91 10^3/uL (1.8-7.7); Neutrophils % 61.7 %; Platelet Count 176 10^3/cmm (130-400); Red Blood Count 4.18 10^6/uL (4.1-5.3); Red Cell Distribution Width 13.9 % (12.1-15.1); White Blood Count 6.3 10^3/uL (4.0-10.0)
[2020-09-14] MEDS: metoprolol tartrate 1 mg/1 mL SDV 5 mL 5 MG IV ×2 (05:31→16:31)
[2020-09-14 05:45] LABS: Chol HDL Ratio 2.88 mg/dL (0.0-4.40); Cholesterol 147 mg/dL (0-200); HDL Cholesterol 51 mg/dL (60-100); LDL Cholesterol Calculated 81 mg/dL (50-129); LDL HDL Ratio 1.59 RATIO (0.00-3.22); Triglycerides 75 mg/dL (0-150)
[2020-09-14 05:50] LABS: Alanine Aminotransferase 23 U/L (0-33); Albumin Level 3.3 g/dL (3.5-5.2); Alkaline Phosphatase 96 IU/L (35-105); Anion Gap 10.2 (5-19); Aspartate Amino Transferase 18 U/L (0-32); Blood Urea Nitrogen 15 mg/dL (6-20); Calcium 8.8 mg/dL (8.5-10.5); Carbon Dioxide 30 mmol/L (22-29); Chloride 104 mmol/L (98-107); Globulin 3.2 g/dL (1.3-4.6); Glucose 104 mg/dL (65-115); Magnesium 2.3 mg/dL (1.7-2.3); Osmolality Calculated 291 mOsm/kg (285-295); Potassium 4.2 mmol/L (3.5-5.1); Sodium 140 mmol/L (136-145); Thyroid Stimulating Hormone 4.24 uIU/mL (0.27-4.20); Total Bilirubin 0.3 mg/dL (0.15-1.2); Total Protein 6.5 g/dL (6.6-8.7)
[2020-09-14 06:09] LABS: Estmated Average Glucose 100; Hemoglobin A1C 5.1 % (4.0-6.0)
[2020-09-14] MEDS: metoprolol tartrate 25 mg Tablet PO (08:11)
[2020-09-14] MEDS: FUROsemide 10 mg/mL SDV 2mL 20 MG IVP ×2 (08:12→18:04)
[2020-09-14] MEDS: levalbuterol 0.63 mg/3 mL Neb INHALATION (10:45)
--- NOTE | 2020-09-14 11:32 | PC.CHAP ---
Pastoral Care Encounter/Spiritual Assessment Type of Contact [] Declined network operations center engineer visit [] Patient/Family/Request visit [] Outpatient visit [] Follow-up visit [] Physician referral [] Code/Alert [x] Routine visit [] Staff referral [] Actively dying [] Patient sleeping [] Family support [] [] Out of room [] Palliative care [] [x] Receiving care in room [] Pre-surgical visit [] Trauma [] Long length of stay [] ICU visit [] Other: Relational/Emotional Strength [x] Patient feels connected with others/family/visitors/staff [] Distress [] Loneliness/isolation [] Abandonment Spirituality of Patient [x] Person of Perri [] Attends Adventism of their Perri [x] Believes in Prayer [] Reads Bible or Voodoo materials [] There are Spiritual issues to be addressed [place] In Interventions [x] Prayer [x] Active listening [x] Non-anxious presence [x] Spiritual/emotional support [] Crisis/trauma care [x] Spiritual counseling [] Bereavement support [] Provided bereavement packet [] Provided Bible/devotional materials [] Provided toy/stuffed animal, coloring book to patient or family member [] Provided Communion [] Anointing/[place] [] Salvation [x] Completed spiritual assessment [] Other: Impact on Illness or Injury [] Angry [] Fearful [x] Anxious [] Often cries [] Exhaustion [] Unable to work [] Unable to attend restoration [] Unable to walk/stand [] Unable to read [] Unable to drive [] Unable to eat/drink [] Unable to sleep [] Unable to be with family [] Patient intubated [] Other: Summary Heart is doing good, feels good and has a good attitude, wants to home soon Time spent with patient 10 mins
[2020-09-14] MEDS: acetaminophen 325 mg Tablet 650 MG PO (11:45)
[2020-09-14] MEDS: HYDROcodone-acetaminophen 5-325 mg Tablet 1 TAB PO (14:04)
[2020-09-14] MEDS: enoxaparin 40 mg/0.4 mL Syringe SUBCUT (16:31)
--- NOTE | 2020-09-14 17:41 | PM.PN ---
Subjective Subjective: Interval history: 49-year-old with past medical history of morbid obesity with BMI of 49kg/m2, asthma, hypothyroidism, hypertension and medical non-complliance due to lack of insurance who presented to the hospital with with shortness of breath. Patient stated this started early today. Denied any chest pain or palpitation. Also denied any recent orthopnea. Noted lower extremity swelling after prolonged standing. No prior cardiac issues. In addition to this she stated she has been experiencing right sided constant neck pain radiating to right upper extremity after she sustained a fall earlier this week on friday. Patient stated she was pushing the cart at [employer] when this occurred. Lost her balance. Denied any symptoms prior to event. No LOC. No recent fever, chills, nausea or vomiting. Denied dysuria, frequency or urgency. No abdominal pain, diarrhea or constipation. Upon arrival to emergency room for evaluation her initial vitals showed a respiratory rate of 20, temperature of 98.6? blood pressure 193/143, and heart rate of 120. initial laboratory workup showed a WBC of 9.3, hemoglobin of 13.9, hematocrit of 44.8 and a platelet count of 240. sodium 140, potassium 4.5, chloride 105, bicarb 26, BUN 16 and creatinine of 0.8. Glucose of 110. AST of 23, ALT of 29 and alkaline phosphatase of 113. initial troponin was 24. proBNP of 1457. Urinalysis showed positive nitrite, negative leukocyte esterase and 15 to 25 wbc's. Imaging studies included CT cervical spine which was negative for any acute fractures. Shoulder x-ray on right was negative. Was noted to have osteoarthritis at multiple levels. Chest x-ray showed cardiomegaly. CTA of chest PE protocol was performed which did not show any evidence of pulmonary embolism however was noted to have mild chronic emphysematous changes with small bilateral pleural effusions. Slight hazy infiltrate in lung bases. Again cardiomegaly was noted with diffuse body wall anasarca. EKG confirmed atrial fibrillation with rapid ventricular response. Patient was given cardizem 25mg IV x 1. In addition was given lasix 40 mg IV x 1, zofran 4 mg IV x1 and morphine 4 mg IV x 1. 09/14/20 patient noted improvement in respiratory status overnight. Did however note some exertional dyspnea. No chest pain. No palpitations. Remained in atrial fibrillation however rate control was improved. Medications: Reviewed: Yes Vitals/I&O/Wt Last Vital Signs Temp 98.3 F 09/14/20 12:00 Pulse 102 H 09/14/20 15:37 Resp 18 09/14/20 15:37 BP 164/112 09/14/20 16:33 Pulse Ox 96 09/14/20 15:37 09/14/20 09/14/20 09/14/20 06:59 14:59 22:59 Intake Total 150 / 260 720 / 720 Balance 150 / 260 720 / 720 Weight last 48 hrs Weight 136.078 kg Weight 136.078 kg Physical Exam Narrative: EXAM NARRATIVE: General: alert,awake, oriented x 3, NAD HEENT: Grossly unremarkable CVS: Irregularly irregular Chest : CTABL, no wheezing ABD; Soft NT,ND Ext : Nonpitting edema bilaterally Data : 09/14/20 04:23 09/14/20 04:23 Micro: Microbiology 09/13/20 11:13 Urine Culture - Preliminary Urine,Clean Catch Gram Negative Rods A&P Assessment and plan (1) New onset atrial fibrillation: Status: Acute (2) Acute congestive heart failure: Status: Acute Qualifiers: Heart failure type: unspecified Qualified Code(s): I50.9 - Heart failure, unspecified (3) Neck pain: Status: Acute (4) Fall: Status: Acute (5) Abnormal finding on urinalysis: Status: Acute Newly diagnosed Atrial Fibrillation with rapid ventricular response - S/P Cardizem 25 mg IV x 1 in ER - ECHO ordered - perform once HR < 100 - Aspirin 325 mg PO daily - Metoprolol 25 mg PO BID - > increased to 50 mg - Avoid caffeine / stimulants - Consider cardiology consult - ECHO pending Troponin elevation - ECHO pending - Trend not consistent with ACS - Likely type 2 - Aspirin 325 mg PO daily Acute respiratory distress due to HF exacerbation - Likey due to rapid rate / Fluid overload - Pro-BNP 1457 - Chest x-ray - Cardiomegaly w/o pulmonary vascular congestion - CTA chest - No PE, Cardiomegaly, anasarca - Supplemental 02 as needed - Lasix 20 mg IV BID - ECHO pending Recent Fall with neck pain - CT cervical - No acute fracture - R.Shoulder x-ray - No acute fracture - Pain control - OT consult Suspected UTI - Possible contamination - UA positive for nitrates - Follow up on culture - Rocephin 1g IV q24hr Hypertension - Metoprolol 50 mg PO BID Hypothyroidism - Non-compliant with medication - Unknown meds or doses - TSH upper limits - Will repeat outpatient prior to starting replacement - Recheck TSH in 4 weeks Hx of Asthma - No wheezing on exam - Xopenex PRN for dyspnea DVT ppx - Lovenox 40 mg SQ daily Attestations Medical Necessity Statement*: Will continue hospitalization for management of atrial fibrillation and respiratory distress. Time Spent in Patient Care: Greater than 35 minutes (>than 50% of time spent in counselling and/or direct pt care on unit). Coding Level of Care Code Acute Refinery Operator Helper Crude Unit for g Fwd Diagnoses New onset atrial fibrillation I48.91 Acute congestive heart failure I50.9 Heart failure type: unspecified Neck pain M54.2 Fall W19.XXXA Abnormal finding on urinalysis R82.90
--- NOTE | 2020-09-14 18:14 | PC.NURSE ---
INACCURATE URINE OUTPUT THIS SHIFT. ANCILLARY STAFF EMPTIED BSC WITHOUT MEASURING.
[2020-09-14] MEDS: metoprolol tartrate 25 mg Tablet 50 MG PO (21:20)
[2020-09-15] VITALS (61 sets, daily range): BP systolic 122–184; BP diastolic 81–138; PULSE 83–122; RESP 13–29; TEMP 36–36.7; O2SAT 91–97
[2020-09-15] MEDS: morphine 4 mg/mL SDV 1 mL 2 MG IVP (03:37)
[2020-09-15] MEDS: nitroglycerin 0.4 mg sublingual Tablet SUBLINGUAL ×3 (04:08→12:54)
--- NOTE | 2020-09-15 04:30 | PC.NURSE ---
pt c/o pain under left breast 02/08 that she described as squeezing and said she had never had pain there before, prn morphine given without improvement, notified Dr Venegas. EKG, troponins, and SL nitro ordered, nitro given X2 after which pt stated pain had improved, EKG sent to Dr Venegas with no further orders, continue to monitor
[2020-09-15] MEDS: FUROsemide 10 mg/mL SDV 2mL 20 MG IVP (05:03)
[2020-09-15 05:06] LABS: Basophils % 0.2 %; Eosinophils # 0.1 10^3/uL (0.0-0.8); Eosinophils % 1.8 %; Hematocrit 41.2 % (37.0-47.0); Hemoglobin 12.3 g/dL (11.5-15.3); Lymphocytes # 1.9 10^3/uL (0.8-4.8); Lymphocytes % 31.1 %; Mean Corpuscular HGB Conc 29.9 g/dL (30.0-36.0); Mean Corpuscular Volume 100.5 fL (81-99); Mean Platelet Volume 11.3 fL (7.4-10.4); Monocytes # 0.4 10^3/uL (0.2-0.9); Neutrophils % 59.7 %; Nucleated Red Blood Cells % 0.3 %; Platelet Count 182 10^3/cmm (130-400); Red Cell Distribution Width 13.7 % (12.1-15.1); White Blood Count 6.2 10^3/uL (4.0-10.0)
[2020-09-15 05:31] LABS: Troponin(5th) Baseline 24 ng/L (0-10)
[2020-09-15 06:58] LABS: Alanine Aminotransferase 23 U/L (0-33); Albumin Level 3.2 g/dL (3.5-5.2); Alkaline Phosphatase 89 IU/L (35-105); Blood Urea Nitrogen 17 mg/dL (6-20); Calcium 9.1 mg/dL (8.5-10.5); Carbon Dioxide 23 mmol/L (22-29); Chloride 102 mmol/L (98-107); Glomerular Filtration Rate 88.2 mL/min (90-130); Glucose 96 mg/dL (65-115); Magnesium 2.2 mg/dL (1.7-2.3); Osmolality Calculated 287 mOsm/kg (285-295); Sodium 138 mmol/L (136-145); Total Bilirubin 0.4 mg/dL (0.15-1.2); Total Protein 6.2 g/dL (6.6-8.7)
[2020-09-15 07:00] LABS: Anion Gap 17.4 (5-19); Aspartate Amino Transferase 18 U/L (0-32); Potassium 4.4 mmol/L (3.5-5.1)
[2020-09-15 07:19] LABS: Troponin 5 2HR 24.18 ng/L (0-10); Troponin 5 2HR Delta 0.18 ABS# (0-10)
[2020-09-15] MEDS: levalbuterol 0.63 mg/3 mL Neb INHALATION (07:27)
--- NOTE | 2020-09-15 09:50 | ECG_ITS ---
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 Measurements Intervals [place] Rate: 86 P: [place]: QRS: 61 QRSD: 108 T: 45 QT: 371 QTc: 446 Interpretive Statements ATRIAL FIBRILLATION ABNORMAL RHYTHM ECG Compared to ECG 09/13/2020 13:40:31 No significant changes Electronically Signed On 09-17-2020 9:22:51 BORING MACHINE OPERATOR VERTICAL by Ellen Benjamin M.D. [id number]
[2020-09-15] MEDS: metoprolol tartrate 25 mg Tablet 50 MG PO (10:23)
--- NOTE | 2020-09-15 11:06 | PC.CHAP ---
Pastoral Care Encounter/Spiritual Assessment Type of Contact [] Declined apprentice plant attendant visit [xx] Patient/Family/Request visit [] Outpatient visit [] Follow-up visit [] Physician referral [] Code/Alert [xx] Routine visit [] Staff referral [] Actively dying [] Patient sleeping [] Family support [] [] Out of room [] Palliative care [] [] Receiving care in room [] Pre-surgical visit [] Trauma [] Long length of stay [] ICU visit [] Other: Relational/Emotional Strength [xx] Patient feels connected with others/family/visitors/staff [] Distress [] Loneliness/isolation [] Abandonment Spirituality of Patient [xx] Person of Perri [] Attends Tenriism of their Perri [xx] Believes in Prayer [xx] Reads Bible or Spiritism materials [] There are Spiritual issues to be addressed Filter Changing Technician Interventions [xx] Prayer [xx] Active listening [xx] Non-anxious presence [] Spiritual/emotional support [] Crisis/trauma care [] Spiritual counseling [] Bereavement support [] Provided bereavement packet [xx] Provided Bible/devotional materials [] Provided toy/stuffed animal, coloring book to patient or family member [] Provided Communion [] Anointing/[place] [] Salvation [xx] Completed spiritual assessment [] Other: Impact on Illness or Injury [] Angry [] Fearful [] Anxious [] Often cries [] Exhaustion [xx] Unable to work [xx] Unable to attend yazdanism [xx] Unable to walk/stand [] Unable to read [xx] Unable to drive [] Unable to eat/drink [] Unable to sleep [xx] Unable to be with family [] Patient intubated [] Other: Summary Physical limitations should be temporary per patient's statement. She experienced dizziness while sitting and wanted to lie down and sleep. [employer] devotional accepted by patient. Time spent with patient 4 minutes
[2020-09-15 11:07] LABS: Troponin 5 6HR 24.02 ng/L (0-10); Troponin 5 6HR Delta 0.02 ng/L (0-12)
[2020-09-15] MEDS: FUROsemide 10 mg/mL SDV 4mL 40 MG IVP ×2 (11:07→22:02)
--- NOTE | 2020-09-15 12:37 | ECG_ITS ---
[facility] Test Date: 2020-09-15 Pat Name: Venus Neil Department: Room: 112 Gender: Female Development Advisor: : [id number] Requested By: Padma Ureña Order Number: [id number] José MD: Ellen Benjamin M.D. Measurements Intervals Calvin Rate: 103 P: MT: QRS: 59 QRSD: 92 T: 32 QT: 370 QTc: 487 Interpretive Statements ATRIAL FIBRILLATION WITH RAPID VENTRICULAR RESPONSE ABNORMAL RHYTHM ECG Compared to ECG 09/15/2020 04:01:17 No significant changes Electronically Signed On 09-17-2020 9:23:23 GRAPHIC DESIGN PROFESSOR by Ellen Benjamin M.D. [email or web address]
--- NOTE | 2020-09-15 12:51 | PM.PN ---
Subjective Subjective: Interval history: 49-year-old with past medical history of morbid obesity with BMI of 49kg/m2, asthma, hypothyroidism, hypertension and medical non-complliance due to lack of insurance who presented to the hospital with with shortness of breath. Patient stated this started early today. Denied any chest pain or palpitation. Also denied any recent orthopnea. Noted lower extremity swelling after prolonged standing. No prior cardiac issues. In addition to this she stated she has been experiencing right sided constant neck pain radiating to right upper extremity after she sustained a fall earlier this week on friday. Patient stated she was pushing the cart at [place] when this occurred. Lost her balance. Denied any symptoms prior to event. No LOC. No recent fever, chills, nausea or vomiting. Denied dysuria, frequency or urgency. No abdominal pain, diarrhea or constipation. Upon arrival to emergency room for evaluation her initial vitals showed a respiratory rate of 20, temperature of 98.6? blood pressure 193/143, and heart rate of 120. initial laboratory workup showed a WBC of 9.3, hemoglobin of 13.9, hematocrit of 44.8 and a platelet count of 240. sodium 140, potassium 4.5, chloride 105, bicarb 26, BUN 16 and creatinine of 0.8. Glucose of 110. AST of 23, ALT of 29 and alkaline phosphatase of 113. initial troponin was 24. proBNP of 1457. Urinalysis showed positive nitrite, negative leukocyte esterase and 15 to 25 wbc's. Imaging studies included CT cervical spine which was negative for any acute fractures. Shoulder x-ray on right was negative. Was noted to have osteoarthritis at multiple levels. Chest x-ray showed cardiomegaly. CTA of chest PE protocol was performed which did not show any evidence of pulmonary embolism however was noted to have mild chronic emphysematous changes with small bilateral pleural effusions. Slight hazy infiltrate in lung bases. Again cardiomegaly was noted with diffuse body wall anasarca. EKG confirmed atrial fibrillation with rapid ventricular response. Patient was given cardizem 25mg IV x 1. In addition was given lasix 40 mg IV x 1, zofran 4 mg IV x1 and morphine 4 mg IV x 1. 09/14/20 Patient noted improvement in respiratory status overnight. Did however note some exertional dyspnea. No chest pain. No palpitations. Remained in atrial fibrillation however rate control was improved. 09/15/20 Noted to have increase in edema and respiratory distress with exertion, rate control improved however has been hypertensive, NO fever or chills. NO nausea or vomiting. No diarrhea or constipation Medications: Reviewed: Yes Vitals/I&O/Wt Last Vital Signs Temp 97.9 F 09/15/20 12:00 Pulse 101 H 09/15/20 12:00 Resp 22 H 09/15/20 12:00 BP 152/114 09/15/20 12:00 Pulse Ox 97 09/15/20 08:00 09/14/20 09/15/20 09/15/20 22:59 06:59 14:59 Intake Total 240 / 960 240 / 240 Output Total 1450 / 1450 300 / 1750 Balance -1210 / -490 -300 / -790 240 / 240 Weight last 48 hrs Weight 173.318 kg Weight 136.078 kg Physical Exam Narrative: EXAM NARRATIVE: General: alert,awake, oriented x 3, NAD HEENT: Grossly unremarkable CVS: Irregularly irregular , systolic murmur Chest : CTABL, no wheezing ABD; Soft NT,ND Ext : Nonpitting edema bilaterally Data : 09/15/20 04:27 09/15/20 04:27 Micro: Microbiology 09/13/20 11:13 Urine Culture - Final Urine,Clean Catch Escherichia coli A&P Assessment and plan (1) New onset atrial fibrillation: Status: Acute (2) Acute congestive heart failure: Status: Acute Qualifiers: Heart failure type: unspecified Qualified Code(s): I50.9 - Heart failure, unspecified (3) Neck pain: Status: Acute (4) Fall: Status: Acute (5) Abnormal finding on urinalysis: Status: Acute Newly diagnosed Atrial Fibrillation with rapid ventricular response - S/P Cardizem 25 mg IV x 1 in ER - ECHO ordered - perform once HR < 100 - Chadsvasc2 score 3 - female,chf,htn - Started on Eliquis 5 mg PO BID for CVA prevention - Metoprolol 50 mg PO BID - > increased to 75 mg - Avoid caffeine / stimulants - Consider cardiology consult - ECHO noted - pEF, mod , Mod MR, Grade 3/4 diastolic dysfunction Troponin elevation - ECHO noted above - Trend not consistent with ACS - Likely type 2 - Add asa 81 mg PO daily - Will consider outpatient stress - No chest pain Acute respiratory distress due to acute diastolic heart failure exacerbation / Mod /MR - Likely due to rapid rate / Fluid overload / undiagnosed sleep apnea - Pro-BNP 1457 - Chest x-ray - Cardiomegaly w/o pulmonary vascular congestion - CTA chest - No PE, Cardiomegaly, anasarca - Supplemental 02 as needed - Lasix 20 mg IV BID - Increased to 40 mg IV BID - ECHO noted above Recent Fall with neck pain - CT cervical - No acute fracture - R.Shoulder x-ray - No acute fracture - Pain control - OT consult Urinary tract infection - Rocephin in er - Change to omnief 300 mg po BID x 7 days Hypertension - Metoprolol 75 mg PO BID - Lasix as above - Will add additional antihypertensive for improved control Hypothyroidism - Non-compliant with medication - Unknown meds or doses - TSH upper limits - Will repeat outpatient prior to starting replacement - Recheck TSH in 4 weeks Hx of Asthma - No wheezing on exam - Xopenex PRN for dyspnea DVT ppx - Lovenox 40 mg SQ daily Attestations Medical Necessity Statement*: Continue current hospital stay for management of diastolic HF exacerbation, afib and hypertenison Time Spent in Patient Care: Greater than 35 minutes (>than 50% of time spent in counselling and/or direct pt care on unit). Coding Level of Care Code Acute Freight Representative for Marisa Herrera Diagnoses New onset atrial fibrillation I48.91 Acute congestive heart failure I50.9 Heart failure type: unspecified Neck pain M54.2 Fall W19.XXXA Abnormal finding on urinalysis R82.90
--- NOTE | 2020-09-15 13:20 | PC.NURSE ---
at 1245 pt c/o chest pain.left chest..non-radiating...described as a sqeezing' pain..rated 5 on 1/10 scale.bp 122/78.hr 106 (afib),resp 20- even and unlabored,o2 sat 95% on room air.no sob or diaphoresis noted.ekg obtained.no changes noted.1 ntg given sl.bp after dose was 131/93..hr 104.pt states cp relieved.
[2020-09-15] MEDS: amlodipine 10 mg Tablet PO (17:19)
[2020-09-15] MEDS: apixaban 5 mg Tablet PO (17:20)
[2020-09-15] MEDS: cefdinir 300 MG CAPSULE PO (17:20)
[2020-09-15] MEDS: acetaminophen 325 mg Tablet 650 MG PO (18:25)
--- NOTE | 2020-09-15 18:53 | PC.NURSE ---
pt's bp elevatedthis afternoon.dr alvarez notified.he ordered to start amlodipine 10 mg daily...now.
[2020-09-15] MEDS: metoprolol tartrate 25 mg Tablet 75 MG PO (20:48)
[2020-09-16] VITALS (13 sets, daily range): BP systolic 118–148; BP diastolic 88–110; PULSE 52–106; RESP 16–22; TEMP 36–36.6; O2SAT 94–96
[2020-09-16 04:29] LABS: Basophils % 0.2 %; Eosinophils # 0.1 10^3/uL (0.0-0.8); Eosinophils % 1.7 %; Hemoglobin 13.3 g/dL (11.5-15.3); Lymphocytes # 2.2 10^3/uL (0.8-4.8); Lymphocytes % 32.9 %; Mean Corpuscular HGB Conc 30.9 g/dL (30.0-36.0); Mean Corpuscular Volume 97.1 fL (81-99); Mean Platelet Volume 11.1 fL (7.4-10.4); Monocytes # 0.4 10^3/uL (0.2-0.9); Monocytes % 6.3 %; Neutrophils # 3.89 10^3/uL (1.8-7.7); Neutrophils % 58.6 %; Nucleated Red Blood Cells % 0 %; Platelet Count 221 10^3/cmm (130-400); Red Blood Count 4.43 10^6/uL (4.1-5.3); Red Cell Distribution Width 13.5 % (12.1-15.1); White Blood Count 6.6 10^3/uL (4.0-10.0)
[2020-09-16 04:45] LABS: Alanine Aminotransferase 23 U/L (0-33); Albumin Level 3.4 g/dL (3.5-5.2); Alkaline Phosphatase 96 IU/L (35-105); Aspartate Amino Transferase 19 U/L (0-32); Blood Urea Nitrogen 19 mg/dL (6-20); Calcium 9.3 mg/dL (8.5-10.5); Carbon Dioxide 30 mmol/L (22-29); Chloride 99 mmol/L (98-107); Globulin 3.5 g/dL (1.3-4.6); Glomerular Filtration Rate 88.2 mL/min (90-130); Glucose 92 mg/dL (65-115); Magnesium 2.2 mg/dL (1.7-2.3); Osmolality Calculated 286 mOsm/kg (285-295); Sodium 137 mmol/L (136-145); Total Bilirubin 0.5 mg/dL (0.15-1.2); Total Protein 6.9 g/dL (6.6-8.7)
[2020-09-16 04:52] LABS: Anion Gap 12.1 (5-19)
[2020-09-16 04:53] LABS: Potassium 4.1 mmol/L (3.5-5.1)
--- NOTE | 2020-09-16 07:52 | PC.NURSE ---
patient resting in bed at this time. assessment performed and charted. patient requested ice and a little bit of water. Pitcher was refilled with ice. patient denied any other needs at this time. call light within reach.
--- NOTE | 2020-09-16 08:26 | PC.CHAP ---
Pastoral Care Encounter/Spiritual Assessment Type of Contact [] Declined digester operator helper visit [] Patient/Family/Request visit [] Outpatient visit [] Follow-up visit [] Physician referral [] Code/Alert [x] Routine visit [] Staff referral [] Actively dying [] Patient sleeping [] Family support [] [] Out of room [] Palliative care [] [] Receiving care in room [] Pre-surgical visit [] Trauma [] Long length of stay [] ICU visit [] Other: Relational/Emotional Strength [] Patient feels connected with others/family/visitors/staff [] Distress [] Loneliness/isolation [] Abandonment Spirituality of Patient [] Person of Perri [] Attends Taoist of their Perri [] Believes in Prayer [] Reads Bible or Congregation materials [] There are Spiritual issues to be addressed Mechanical Design Technician Interventions [x] Prayer [x] Active listening [x] Non-anxious presence [x] Spiritual/emotional support [] Crisis/trauma care [] Spiritual counseling [] Bereavement support [] Provided bereavement packet [] Provided Bible/devotional materials [] Provided toy/stuffed animal, coloring book to patient or family member [] Provided Communion [] Anointing/[place] [] Salvation [x] Completed spiritual assessment [] Other: Impact on Illness or Injury [] Angry [] Fearful [] Anxious [] Often cries [] Exhaustion [] Unable to work [] Unable to attend bahai [] Unable to walk/stand [] Unable to read [] Unable to drive [] Unable to eat/drink [] Unable to sleep [] Unable to be with family [] Patient intubated [] Other: Summary patients neck still tight... still experiencing pain Time spent with patient 10 min
[2020-09-16] MEDS: metoprolol tartrate 25 mg Tablet 75 MG PO (08:35)
[2020-09-16] MEDS: amlodipine 10 mg Tablet PO (08:35)
[2020-09-16] MEDS: apixaban 5 mg Tablet PO ×2 (08:35→17:57)
[2020-09-16] MEDS: cefdinir 300 MG CAPSULE PO ×2 (08:35→17:57)
--- NOTE | 2020-09-16 08:37 | PC.NURSE ---
patient up to bedside commode and when transferring back to bed heart rate noted to be in 140's. patient stated, I got dizzy, I need to sit still. call light within reach. medications administered at this time. patient is back resting in bed and denies any needs at this time.
[2020-09-16] MEDS: FUROsemide 10 mg/mL SDV 4mL 40 MG IVP ×2 (11:25→22:08)
--- NOTE | 2020-09-16 14:38 | P.PN_ITS ---
Subjective Subjective: Interval history: 49-year-old with past medical history of morbid obesity with BMI of 49kg/m2, asthma, hypothyroidism, hypertension and medical non-complliance due to lack of insurance who presented to the hospital with with shortness of breath. Patient stated this started early today. Denied any chest pain or palpitation. Also denied any recent orthopnea. Noted lower extremity swelling after prolonged standing. No prior cardiac issues. In addition to this she stated she has been experiencing right sided constant neck pain radiating to right upper extremity after she sustained a fall earlier this week on friday. Patient stated she was pushing the cart at [employer] [place] when this occurred. Lost her balance. Denied any symptoms prior to event. No LOC. No recent fever, chills, nausea or vomiting. Denied dysuria, frequency or urgency. No abdominal pain, diarrhea or constipation. Upon arrival to emergency room for evaluation her initial vitals showed a respiratory rate of 20, temperature of 98.6? blood pressure 193/143, and heart rate of 120. initial laboratory workup showed a WBC of 9.3, hemoglobin of 13.9, hematocrit of 44.8 and a platelet count of 240. sodium 140, potassium 4.5, chloride 105, bicarb 26, BUN 16 and creatinine of 0.8. Glucose of 110. AST of 23, ALT of 29 and alkaline phosphatase of 113. initial troponin was 24. proBNP of 1457. Urinalysis showed positive nitrite, negative leukocyte esterase and 15 to 25 wbc's. Imaging studies included CT cervical spine which was negative for any acute fractures. Shoulder x-ray on right was negative. Was noted to have osteoarthritis at multiple levels. Chest x-ray showed cardiomegaly. CTA of chest PE protocol was performed which did not show any evidence of pulmonary embolism however was noted to have mild chronic emphysematous changes with small bilateral pleural effusions. Slight hazy infiltrate in lung bases. Again cardiomegaly was noted with diffuse body wall anasarca. EKG confirmed atrial fibrillation with rapid ventricular response. Patient was given cardizem 25mg IV x 1. In addition was given lasix 40 mg IV x 1, zofran 4 mg IV x1 and morphine 4 mg IV x 1. 09/14/20 Patient noted improvement in respiratory status overnight. Did however note some exertional dyspnea. No chest pain. No palpitations. Remained in atrial fibrillation however rate control was improved. 09/15/20 Noted to have increase in edema and respiratory distress with exertion, rate control improved however has been hypertensive, NO fever or chills. NO nausea or vomiting. No diarrhea or constipation 09/16/2020 Patient noted respiratory distress still. Somewhat improved. Over 2600 mL urine output less evening. Remains in atrial fibrillation. Medications: Reviewed: Yes Vitals/I&O/Wt Last Vital Signs Temp 97.9 F 09/16/20 12:00 Pulse 97 09/16/20 12:00 Resp 19 H 09/16/20 12:00 BP 118/88 09/16/20 12:00 Pulse Ox 96 09/16/20 12:00 09/15/20 09/16/20 09/16/20 22:59 06:59 14:59 Intake Total 360 / 600 120 / 120 Output Total 200 / 200 2400 / 2600 Balance 160 / 400 -2400 / -2000 120 / 120 Weight last 48 hrs Weight 172.274 kg Weight 173.318 kg Physical Exam Narrative: EXAM NARRATIVE: General: alert,awake, oriented x 3, NAD HEENT: Grossly unremarkable CVS: Irregularly irregular , systolic murmur Chest : CTABL, no wheezing ABD; Soft NT,ND Ext : Nonpitting edema bilaterally Data : 09/16/20 03:20 09/16/20 03:20 Micro: Microbiology 09/13/20 11:13 Urine Culture - Final Urine,Clean Catch Escherichia coli A&P Assessment and plan (1) New onset atrial fibrillation: Status: Acute (2) Acute congestive heart failure: Status: Acute Qualifiers: Heart failure type: unspecified Qualified Code(s): I50.9 - Heart failure, unspecified (3) Neck pain: Status: Acute (4) Fall: Status: Acute (5) Abnormal finding on urinalysis: Status: Acute Newly diagnosed Atrial Fibrillation with rapid ventricular response - S/P Cardizem 25 mg IV x 1 in ER - Chadsvasc2 score 3 - female,chf,htn - Started on Eliquis 5 mg PO BID for CVA prevention - Avoid caffeine / stimulants - Consider cardiology consult - ECHO noted - pEF, mod , Mod MR, Grade 3/4 diastolic dysfunction - Will d/c metoprolol - Add coreg 6.25 mg PO BID - Digoxin 125 mg PO daily - Check dig level on friday if stable may increase dose - Continue to titrate meds Troponin elevation - ECHO noted above - Trend not consistent with ACS - Likely type 2 - Eliquis 5 mg PO BID - Will consider outpatient stress - No chest pain Acute respiratory distress due to acute diastolic heart failure exacerbation / Mod /MR - Likely due to rapid rate / Fluid overload / undiagnosed sleep apnea - Pro-BNP 1457 - Chest x-ray - Cardiomegaly w/o pulmonary vascular congestion - CTA chest - No PE, Cardiomegaly, anasarca - Supplemental 02 as needed - Lasix 40 mg IV BID - ECHO noted above - Net negative 2119 balance - U/o 0.63 ml/kg/hr Uncontrolled Hypertension - Will d/c norvasc /metoprolol - Add Coreg 6.25 mg PO BID - Losartan 50 mg PO daily - Lasix as above. - May have to add aldactone and or increase dose of above meds Recent Fall with neck pain - CT cervical - No acute fracture - R.Shoulder x-ray - No acute fracture - Pain control - OT consult Urinary tract infection - Rocephin in er - Change to omnief 300 mg po BID x 7 days Hypothyroidism - Non-compliant with medication - Unknown meds or doses - TSH upper limits - Will repeat outpatient prior to starting replacement - Recheck TSH in 4 weeks Hx of Asthma - No wheezing on exam - Xopenex PRN for dyspnea DVT ppx - Eliquis 5 mg p.o. b.i.d. Attestations Medical Necessity Statement*: will require further hospitalization for optimization of cardiac medications Time Spent in Patient Care: Greater than 35 minutes (>than 50% of time spent in counselling and/or direct pt care on unit) . Coding Level of Care Code Acute Mix House Operator for Chg Fwd Diagnoses New onset atrial fibrillation I48.91 Acute congestive heart failure I50.9 Heart failure type: unspecified Neck pain M54.2 Fall W19.XXXA Abnormal finding on urinalysis R82.90
[2020-09-16] MEDS: digoxin 125 mcg Tablet PO (15:38)
[2020-09-16] MEDS: losartan 50 mg Tablet PO (15:38)
--- NOTE | 2020-09-16 15:38 | PC.NURSE ---
medication administered last due to patient care in progress.
[2020-09-16] MEDS: acetaminophen 325 mg Tablet 650 MG PO (17:57)
[2020-09-16] MEDS: carvedilol 6.25 mg Tablet PO (17:57)
[2020-09-17] VITALS (12 sets, daily range): BP systolic 110–182; BP diastolic 80–105; PULSE 86–110; RESP 14–19; TEMP 36.1–36.8; O2SAT 93–97
[2020-09-17 05:33] LABS: Estmated Average Glucose 97
--- NOTE | 2020-09-17 07:47 | PC.NURSE ---
patient resting in bed at this time. denies any pain at this time. assessment performed and charted. call light within reach. no other needs identified at this time.
[2020-09-17] MEDS: digoxin 125 mcg Tablet PO (08:22)
[2020-09-17] MEDS: carvedilol 6.25 mg Tablet PO (08:22)
[2020-09-17] MEDS: losartan 50 mg Tablet PO (08:22)
[2020-09-17] MEDS: apixaban 5 mg Tablet PO ×2 (08:22→17:18)
[2020-09-17] MEDS: cefdinir 300 MG CAPSULE PO ×2 (08:22→17:18)
[2020-09-17] MEDS: FUROsemide 10 mg/mL SDV 4mL 40 MG IVP ×2 (11:34→22:36)
--- NOTE | 2020-09-17 16:48 | PM.PN ---
Subjective Subjective: Interval history: 49-year-old with past medical history of morbid obesity with BMI of 49kg/m2, asthma, hypothyroidism, hypertension and medical non-complliance due to lack of insurance who presented to the hospital with with shortness of breath. Patient stated this started early today. Denied any chest pain or palpitation. Also denied any recent orthopnea. Noted lower extremity swelling after prolonged standing. No prior cardiac issues. In addition to this she stated she has been experiencing right sided constant neck pain radiating to right upper extremity after she sustained a fall earlier this week on friday. Patient stated she was pushing the cart at [employer] when this occurred. Lost her balance. Denied any symptoms prior to event. No LOC. No recent fever, chills, nausea or vomiting. Denied dysuria, frequency or urgency. No abdominal pain, diarrhea or constipation. Upon arrival to emergency room for evaluation her initial vitals showed a respiratory rate of 20, temperature of 98.6? blood pressure 193/143, and heart rate of 120. initial laboratory workup showed a WBC of 9.3, hemoglobin of 13.9, hematocrit of 44.8 and a platelet count of 240. sodium 140, potassium 4.5, chloride 105, bicarb 26, BUN 16 and creatinine of 0.8. Glucose of 110. AST of 23, ALT of 29 and alkaline phosphatase of 113. initial troponin was 24. proBNP of 1457. Urinalysis showed positive nitrite, negative leukocyte esterase and 15 to 25 wbc's. Imaging studies included CT cervical spine which was negative for any acute fractures. Shoulder x-ray on right was negative. Was noted to have osteoarthritis at multiple levels. Chest x-ray showed cardiomegaly. CTA of chest PE protocol was performed which did not show any evidence of pulmonary embolism however was noted to have mild chronic emphysematous changes with small bilateral pleural effusions. Slight hazy infiltrate in lung bases. Again cardiomegaly was noted with diffuse body wall anasarca. EKG confirmed atrial fibrillation with rapid ventricular response. Patient was given cardizem 25mg IV x 1. In addition was given lasix 40 mg IV x 1, zofran 4 mg IV x1 and morphine 4 mg IV x 1. 09/14/20 Patient noted improvement in respiratory status overnight. Did however note some exertional dyspnea. No chest pain. No palpitations. Remained in atrial fibrillation however rate control was improved. 09/15/20 Noted to have increase in edema and respiratory distress with exertion, rate control improved however has been hypertensive, NO fever or chills. NO nausea or vomiting. No diarrhea or constipation 09/16/2020 Patient noted respiratory distress still. Somewhat improved. Over 2600 mL urine output less evening. Remains in atrial fibrillation. 09/17 improvig Medications: Reviewed: Yes Vitals/I&O/Wt Last Vital Signs Temp 98 F 09/18/20 04:00 Pulse 90 09/18/20 05:43 Resp 18 09/18/20 04:00 BP 125/85 09/18/20 04:00 Pulse Ox 96 09/18/20 04:00 09/17/20 09/17/20 09/18/20 14:59 22:59 06:59 Intake Total 720 / 720 240 / 960 150 / 1110 Output Total 1300 / 1300 3000 / 4300 Balance 720 / 720 -1060 / -340 -2850 / -3190 Weight last 48 hrs Weight 170.097 kg Weight 170.732 kg Physical Exam Narrative: EXAM NARRATIVE: General: alert,awake, oriented x 3, NAD HEENT: Grossly unremarkable CVS: Irregularly irregular , systolic murmur Chest : CTABL, no wheezing ABD; Soft NT,ND Ext : Nonpitting edema bilaterally Data : 09/16/20 03:20 09/16/20 03:20 A&P Assessment and plan (1) New onset atrial fibrillation: Status: Acute (2) Acute congestive heart failure: Status: Acute Qualifiers: Heart failure type: unspecified Qualified Code(s): I50.9 - Heart failure, unspecified (3) Neck pain: Status: Acute (4) Fall: Status: Acute (5) Abnormal finding on urinalysis: Status: Acute Newly diagnosed Atrial Fibrillation with rapid ventricular response - S/P Cardizem 25 mg IV x 1 in ER - Chadsvasc2 score 3 - female,chf,htn - Started on Eliquis 5 mg PO BID for CVA prevention - Avoid caffeine / stimulants - Consider cardiology consult - ECHO noted - pEF, mod , Mod MR, Grade 3/4 diastolic dysfunction - Will d/c metoprolol - Add coreg 6.25 mg PO BID - Digoxin 125 mg PO daily - Check dig level on friday if stable may increase dose - Continue to titrate meds Troponin elevation - ECHO noted above - Trend not consistent with ACS - Likely type 2 - Eliquis 5 mg PO BID - Will consider outpatient stress - No chest pain Acute respiratory distress due to acute diastolic heart failure exacerbation / Mod /MR - Likely due to rapid rate / Fluid overload / undiagnosed sleep apnea - Pro-BNP 1457 - Chest x-ray - Cardiomegaly w/o pulmonary vascular congestion - CTA chest - No PE, Cardiomegaly, anasarca - Supplemental 02 as needed - Lasix 40 mg IV BID - ECHO noted above - Net negative 2119 balance - U/o 0.63 ml/kg/hr Uncontrolled Hypertension - Will d/c norvasc /metoprolol - Add Coreg 6.25 mg PO BID - Losartan 50 mg PO daily - Lasix as above. - Add aldactone Recent Fall with neck pain - CT cervical - No acute fracture - R.Shoulder x-ray - No acute fracture - Pain control - OT consult Urinary tract infection - Rocephin in er - Change to omnief 300 mg po BID x 7 days Hypothyroidism - Non-compliant with medication - Unknown meds or doses - TSH upper limits - Will repeat outpatient prior to starting replacement - Recheck TSH in 4 weeks Hx of Asthma - No wheezing on exam - Xopenex PRN for dyspnea DVT ppx - Eliquis 5 mg p.o. b.i.d. Attestations Medical Necessity Statement*: will require further hospitalization for optimization of cardiac medications Time Spent in Patient Care: Greater than 35 minutes (>than 50% of time spent in counselling and/or direct pt care on unit). Coding Level of Care Code Acute Agricultural Sales Representative for Marisa Herrera Diagnoses New onset atrial fibrillation I48.91 Acute congestive heart failure I50.9 Heart failure type: unspecified Neck pain M54.2 Fall W19.XXXA Abnormal finding on urinalysis R82.90
[2020-09-17] MEDS: carvedilol 12.5 mg Tablet PO (20:04)
[2020-09-18] VITALS (14 sets, daily range): BP systolic 100–152; BP diastolic 63–98; PULSE 80–101; RESP 16–19; TEMP 36.2–37.1; O2SAT 93–98
--- NOTE | 2020-09-18 09:18 | PC.CHAP ---
Pastoral Care Encounter/Spiritual Assessment Type of Contact [] Declined ocean biologist visit [] Patient/Family/Request visit [] Outpatient visit [] Follow-up visit [] Physician referral [] Code/Alert [x] Routine visit [] Staff referral [] Actively dying [] Patient sleeping [] Family support [] [] Out of room [] Palliative care [] [] Receiving care in room [] Pre-surgical visit [] Trauma [] Long length of stay [] ICU visit [] Other: Relational/Emotional Strength [] Patient feels connected with others/family/visitors/staff [] Distress [] Loneliness/isolation [] Abandonment Spirituality of Patient [] Person of Perri [] Attends Caodaism of their Perri [] Believes in Prayer [] Reads Bible or Temple materials [] There are Spiritual issues to be addressed Project Product Manager Interventions [x] Prayer [] Active listening [] Non-anxious presence [] Spiritual/emotional support [] Crisis/trauma care [] Spiritual counseling [] Bereavement support [] Provided bereavement packet [] Provided Bible/devotional materials [] Provided toy/stuffed animal, coloring book to patient or family member [] Provided Communion [] Anointing/[place] [] Salvation [x] Completed spiritual assessment [] Other: Impact on Illness or Injury [] Angry [] Fearful [] Anxious [] Often cries [] Exhaustion [] Unable to work [] Unable to attend nondenominational [] Unable to walk/stand [] Unable to read [] Unable to drive [] Unable to eat/drink [] Unable to sleep [] Unable to be with family [] Patient intubated [] Other: Summary patient able to set on toilet... somewhat stronger... pain still here, but not as bad Time spent with patient 5 min
[2020-09-18] MEDS: apixaban 5 mg Tablet PO ×2 (10:25→18:48)
[2020-09-18] MEDS: digoxin 125 mcg Tablet PO (10:26)
[2020-09-18] MEDS: losartan 50 mg Tablet PO (10:27)
[2020-09-18] MEDS: cefdinir 300 MG CAPSULE PO ×2 (10:27→18:48)
[2020-09-18] MEDS: carvedilol 12.5 mg Tablet PO (10:27)
--- NOTE | 2020-09-18 12:20 | PM.PN ---
Subjective Subjective: Interval history: 49-year-old with past medical history of morbid obesity with BMI of 49kg/m2, asthma, hypothyroidism, hypertension and medical non-complliance due to lack of insurance who presented to the hospital with with shortness of breath. Patient stated this started early today. Denied any chest pain or palpitation. Also denied any recent orthopnea. Noted lower extremity swelling after prolonged standing. No prior cardiac issues. In addition to this she stated she has been experiencing right sided constant neck pain radiating to right upper extremity after she sustained a fall earlier this week on friday. Patient stated she was pushing the cart at [place] when this occurred. Lost her balance. Denied any symptoms prior to event. No LOC. No recent fever, chills, nausea or vomiting. Denied dysuria, frequency or urgency. No abdominal pain, diarrhea or constipation. Upon arrival to emergency room for evaluation her initial vitals showed a respiratory rate of 20, temperature of 98.6? blood pressure 193/143, and heart rate of 120. initial laboratory workup showed a WBC of 9.3, hemoglobin of 13.9, hematocrit of 44.8 and a platelet count of 240. sodium 140, potassium 4.5, chloride 105, bicarb 26, BUN 16 and creatinine of 0.8. Glucose of 110. AST of 23, ALT of 29 and alkaline phosphatase of 113. initial troponin was 24. proBNP of 1457. Urinalysis showed positive nitrite, negative leukocyte esterase and 15 to 25 wbc's. Imaging studies included CT cervical spine which was negative for any acute fractures. Shoulder x-ray on right was negative. Was noted to have osteoarthritis at multiple levels. Chest x-ray showed cardiomegaly. CTA of chest PE protocol was performed which did not show any evidence of pulmonary embolism however was noted to have mild chronic emphysematous changes with small bilateral pleural effusions. Slight hazy infiltrate in lung bases. Again cardiomegaly was noted with diffuse body wall anasarca. EKG confirmed atrial fibrillation with rapid ventricular response. Patient was given cardizem 25mg IV x 1. In addition was given lasix 40 mg IV x 1, zofran 4 mg IV x1 and morphine 4 mg IV x 1. 09/14/20 Patient noted improvement in respiratory status overnight. Did however note some exertional dyspnea. No chest pain. No palpitations. Remained in atrial fibrillation however rate control was improved. 09/15/20 Noted to have increase in edema and respiratory distress with exertion, rate control improved however has been hypertensive, NO fever or chills. NO nausea or vomiting. No diarrhea or constipation 09/16/2020 Patient noted respiratory distress still. Somewhat improved. Over 2600 mL urine output less evening. Remains in atrial fibrillation. 09/17/20 improving however slowly 09/18/20 Patient noted have dyspnea on exertion today. Noted improvement in respiratory status at rest however with ambulation again becomes dyspnic. No chest pain, no fever, chills, nausea or vomiting. Medications: Reviewed: Yes Vitals/I&O/Wt Last Vital Signs Temp 97.8 F 09/18/20 08:00 Pulse 101 H 09/18/20 10:26 Resp 18 09/18/20 08:14 BP 152/98 09/18/20 10:27 Pulse Ox 94 09/18/20 08:14 09/17/20 09/18/20 09/18/20 22:59 06:59 14:59 Intake Total 240 / 960 150 / 1110 720 / 720 Output Total 1300 / 1300 3000 / 4300 Balance -1060 / -340 -2850 / -3190 720 / 720 Weight last 48 hrs Weight 170.097 kg Weight 170.732 kg Physical Exam Narrative: EXAM NARRATIVE: General: alert,awake, oriented x 3, NAD HEENT: Grossly unremarkable CVS: Irregularly irregular , systolic murmur Chest : CTABL, no wheezing ABD; Soft NT,ND Ext : Nonpitting edema bilaterally Data : 09/16/20 03:20 09/16/20 03:20 A&P Assessment and plan (1) New onset atrial fibrillation: Status: Acute (2) Acute congestive heart failure: Status: Acute Qualifiers: Heart failure type: unspecified Qualified Code(s): I50.9 - Heart failure, unspecified (3) Neck pain: Status: Acute (4) Fall: Status: Acute (5) Abnormal finding on urinalysis: Status: Acute Newly diagnosed Atrial Fibrillation with rapid ventricular response - S/P Cardizem 25 mg IV x 1 in ER - Chadsvasc2 score 3 - female,chf,htn - Started on Eliquis 5 mg PO BID for CVA prevention - Avoid caffeine / stimulants - ECHO noted - pEF, mod , Mod MR, Grade 3/4 diastolic dysfunction - Will d/c metoprolol - Coreg 12 mg PO BID - increase to 25 mg PO BID - Digoxin 125 mg PO daily - Check dig level tomorrow if stable may increase dose - Continue to titrate meds Troponin elevation - ECHO noted above - Trend not consistent with ACS - Likely type 2 - Eliquis 5 mg PO BID - Will consider outpatient stress - No chest pain Acute respiratory distress due to acute diastolic heart failure exacerbation / Mod /MR - Likely due to rapid rate / Fluid overload / undiagnosed sleep apnea - Pro-BNP 1457 - Chest x-ray - Cardiomegaly w/o pulmonary vascular congestion - CTA chest - No PE, Cardiomegaly, anasarca - Supplemental 02 as needed - Lasix 40 mg IV BID - ECHO noted above - Net negative 2120 balance - U/o 1.05 ml/kg/hr - Net negative 3.1L balance Uncontrolled Hypertension - Will d/c norvasc /metoprolol - Coreg 25 mg PO BID - Losartan 50 mg PO daily - Aldactone 50 mg PO daily added - Lasix as above. Recent Fall with neck pain - CT cervical - No acute fracture - R.Shoulder x-ray - No acute fracture - Pain control - OT consult Urinary tract infection - Rocephin in er - Change to omnief 300 mg po BID x 7 days Hypothyroidism - Non-compliant with medication - Unknown meds or doses - TSH upper limits - Will repeat outpatient prior to starting replacement - Recheck TSH in 4 weeks Hx of Asthma - No wheezing on exam - Xopenex PRN for dyspnea DVT ppx - Eliquis 5 mg p.o. b.i.d. Attestations Medical Necessity Statement*: Will require further hospitalization for management of atrial fibrillation, uncontrolled hypertension and HF exacerbation Time Spent in Patient Care: Greater than 35 minutes (>than 50% of time spent in counselling and/or direct pt care on unit). Coding Level of Care Code Acute Developmental Psychologist for Marisa Fwd Diagnoses New onset atrial fibrillation I48.91 Acute congestive heart failure I50.9 Heart failure type: unspecified Neck pain M54.2 Fall W19.XXXA Abnormal finding on urinalysis R82.90
[2020-09-18] MEDS: spironolactone 25 mg Tablet PO (13:33)
[2020-09-18] MEDS: carvedilol 25 mg Tablet PO ×2 (13:33→23:50)
[2020-09-18] MEDS: FUROsemide 10 mg/mL SDV 4mL 40 MG IVP (13:33)
[2020-09-18 19:35] LABS: Anion Gap 14.7 (5-19); Blood Urea Nitrogen 31 mg/dL (6-20); Calcium 9.6 mg/dL (8.5-10.5); Carbon Dioxide 27 mmol/L (22-29); Chloride 98 mmol/L (98-107); Glomerular Filtration Rate 58.5 mL/min (90-130); Glucose 128 mg/dL (65-115); Osmolality Calculated 290 mOsm/kg (285-295); Potassium 3.7 mmol/L (3.5-5.1); Sodium 136 mmol/L (136-145)
[2020-09-19] VITALS (11 sets, daily range): BP systolic 107–135; BP diastolic 71–96; PULSE 79–98; RESP 14–24; TEMP 35.9–36.8; O2SAT 95–96
[2020-09-19 04:30] LABS: Basophils % 0.3 %; Eosinophils # 0.1 10^3/uL (0.0-0.8); Eosinophils % 1.5 %; Hematocrit 46.9 % (37.0-47.0); Hemoglobin 14.8 g/dL (11.5-15.3); Lymphocytes # 2.3 10^3/uL (0.8-4.8); Lymphocytes % 32.4 %; Mean Corpuscular HGB Conc 31.6 g/dL (30.0-36.0); Mean Corpuscular Hemoglobin 30.5 pg (28.0-34.0); Mean Corpuscular Volume 96.5 fL (81-99); Mean Platelet Volume 11.4 fL (7.4-10.4); Monocytes # 0.6 10^3/uL (0.2-0.9); Monocytes % 7.7 %; Neutrophils # 4.12 10^3/uL (1.8-7.7); Neutrophils % 57.8 %; Nucleated Red Blood Cells % 0 %; Platelet Count 222 10^3/cmm (130-400); Red Blood Count 4.86 10^6/uL (4.1-5.3); Red Cell Distribution Width 13.5 % (12.1-15.1); White Blood Count 7.1 10^3/uL (4.0-10.0)
[2020-09-19 06:26] LABS: Slide Review Slide Review Perform
[2020-09-19 06:35] LABS: Alanine Aminotransferase 21 U/L (0-33); Albumin Level 3.3 g/dL (3.5-5.2); Alkaline Phosphatase 89 IU/L (35-105); Blood Urea Nitrogen 29 mg/dL (6-20); Calcium 9.3 mg/dL (8.5-10.5); Carbon Dioxide 20 mmol/L (22-29); Globulin 3.6 g/dL (1.3-4.6); Glomerular Filtration Rate 75.6 mL/min (90-130); Glucose 88 mg/dL (65-115); Total Bilirubin 0.8 mg/dL (0.15-1.2); Total Protein 6.9 g/dL (6.6-8.7)
--- NOTE | 2020-09-19 07:00 | XRR_ITS ---
PROCEDURE INFORMATION: Exam: XR Chest, 1 View Exam date and time: 09/19/2020 6:23 AM Age: 49 years old Clinical indication: Condition or disease; Lung condition and disease; Respiratory failure; Status not specified TECHNIQUE: Imaging protocol: XR of the chest Views: 1 view. COMPARISON: CR XR chest 1V portable [id number] 09/13/2020 11:01 AM FINDINGS: Lungs: No consolidation. No evidence of edema. Pleural space: No significant visible pleural effusion. No pneumothorax. Heart/Mediastinum: There is stable enlargement of cardiac silhouette. Bones/joints: No acute finding. XR/XR chest 1V portable [id number] IMPRESSION: Stable chest.
[2020-09-19 07:13] LABS: Aspartate Amino Transferase 27 U/L (0-32)
[2020-09-19 07:25] LABS: Chloride 99 mmol/L (98-107); Osmolality Calculated 285 mOsm/kg (285-295); Sodium 135 mmol/L (136-145)
[2020-09-19 07:32] LABS: Anion Gap 20.4 (5-19); Potassium 4.4 mmol/L (3.5-5.1)
[2020-09-19] MEDS: FUROsemide 40 mg Tablet PO ×2 (08:10→15:44)
[2020-09-19] MEDS: apixaban 5 mg Tablet PO ×2 (08:10→18:37)
[2020-09-19] MEDS: digoxin 125 mcg Tablet PO (08:10)
[2020-09-19] MEDS: losartan 50 mg Tablet PO (08:10)
--- NOTE | 2020-09-19 08:44 | ECG_ITS ---
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 The perfusion scan will be documented separately. DATA: Baseline heart rate was 90 beats per minute. Baseline blood pressure was 129/108 millimeters of mercury. Target heart rate was 169. Maximum heart rate achieved was 109. which was 64 % of the predicted target heart rate. Maximum blood pressure was 141/8100 millimeters of mercury. The reason for ending the test was completion of the protocol. The patient did not experience any symptoms. ELECTROCARDIOGRAM: BASELINE: Sinus rhythm. Normal axis. Old anterior wall myocardial infarction otherwise, no ST-T changes suggestive of ischemia noted. No arrhythmia noted. After Lexiscan injection, no ST-T changes suggestive of ischemic noted. No arrhythmia noted. CONCLUSION: Please note due to baseline abnormality of the EKG specificity and sensitivity of the EKG portion of LexiScan MIBI stress test will be low 1. EKG not suggestive of ischemia 2. Lexiscan injection unremarkable. 3. Perfusion scan will be documented separately. Electronically Signed On 09-21-2020 18:12:42 IT BUSINESS ANALYST by ANANTH CALDERON [id number]
--- NOTE | 2020-09-19 08:45 | P.PN_ITS ---
Subjective Subjective: Interval history: 49-year-old with past medical history of morbid obesity with BMI of 49kg/m2, asthma, hypothyroidism, hypertension and medical non-complliance due to lack of insurance who presented to the hospital with with shortness of breath. Patient stated this started early today. Denied any chest pain or palpitation. Also denied any recent orthopnea. Noted lower extremity swelling after prolonged standing. No prior cardiac issues. In addition to this she stated she has been experiencing right sided constant neck pain radiating to right upper extremity after she sustained a fall earlier this week on friday. Patient stated she was pushing the cart at [place] when this occurred. Lost her balance. Denied any symptoms prior to event. No LOC. No recent fever, chills, nausea or vomiting. Denied dysuria, frequency or urgency. No abdominal pain, diarrhea or constipation. Upon arrival to emergency room for evaluation her initial vitals showed a respiratory rate of 20, temperature of 98.6? blood pressure 193/143, and heart rate of 120. initial laboratory workup showed a WBC of 9.3, hemoglobin of 13.9, hematocrit of 44.8 and a platelet count of 240. sodium 140, potassium 4.5, chloride 105, bicarb 26, BUN 16 and creatinine of 0.8. Glucose of 110. AST of 23, ALT of 29 and alkaline phosphatase of 113. initial troponin was 24. proBNP of 1457. Urinalysis showed positive nitrite, negative leukocyte esterase and 15 to 25 wbc's. Imaging studies included CT cervical spine which was negative for any acute fractures. Shoulder x-ray on right was negative. Was noted to have osteoarthritis at multiple levels. Chest x-ray showed cardiomegaly. CTA of chest PE protocol was performed which did not show any evidence of pulmonary embolism however was noted to have mild chronic emphysematous changes with small bilateral pleural effusions. Slight hazy infiltrate in lung bases. Again cardiomegaly was noted with diffuse body wall anasarca. EKG confirmed atrial fibrillation with rapid ventricular response. Patient was given cardizem 25mg IV x 1. In addition was given lasix 40 mg IV x 1, zofran 4 mg IV x1 and morphine 4 mg IV x 1. 09/14/20 Patient noted improvement in respiratory status overnight. Did however note some exertional dyspnea. No chest pain. No palpitations. Remained in atrial fibrillation however rate control was improved. 09/15/20 Noted to have increase in edema and respiratory distress with exertion, rate control improved however has been hypertensive, NO fever or chills. NO nausea or vomiting. No diarrhea or constipation 09/16/2020 Patient noted respiratory distress still. Somewhat improved. Over 2600 mL urine output less evening. Remains in atrial fibrillation. 09/17/20 improving however slowly 09/18/20 Patient noted have dyspnea on exertion today. Noted improvement in respiratory status at rest however with ambulation again becomes dyspnic. No chest pain, no fever, chills, nausea or vomiting. 09/19/20 Overnight patient continued to improve however this am at the time of my eval she complained of chest pain, felt heavy in nature, lasting for a few min and resolving. This is the first time she felt anything like this. Also noted some numbness of left lower extremity below the knee. No complained of decreased mobility or left lower extremity weakness. No fever, chills, nausea or vomiting. Medications: Reviewed: Yes Vitals/I&O/Wt Last Vital Signs Temp 96.6 F L 09/19/20 07:48 Pulse 92 09/19/20 08:10 Resp 14 09/19/20 07:48 BP 133/84 09/19/20 08:10 Pulse Ox 95 09/19/20 07:48 09/18/20 09/19/20 09/19/20 22:59 06:59 14:59 Intake Total 480 / 1680 200 / 1880 360 / 360 Output Total 1000 / 1000 Balance 480 / 1680 -800 / 880 360 / 360 Weight last 48 hrs Weight 168.192 kg Weight 170.097 kg Physical Exam Narrative: EXAM NARRATIVE: General: alert,awake, oriented x 3, NAD HEENT: Grossly unremarkable CVS: Irregularly irregular , systolic murmur Chest : CTABL, no wheezing ABD; Soft NT,ND Ext : Mild edema bilaterally, improved from admission, MS 5/ Data : 09/19/20 03:09 09/19/20 03:09 A&P Assessment and plan (1) New onset atrial fibrillation: Status: Acute (2) Acute congestive heart failure: Status: Acute Qualifiers: Heart failure type: unspecified Qualified Code(s): I50.9 - Heart failure, unspecified (3) Neck pain: Status: Acute (4) Fall: Status: Acute (5) Abnormal finding on urinalysis: Status: Acute Newly diagnosed Atrial Fibrillation with rapid ventricular response - S/P Cardizem 25 mg IV x 1 in ER - Chadsvasc2 score 3 - female,chf,htn - Started on Eliquis 5 mg PO BID for CVA prevention - Avoid caffeine / stimulants - ECHO noted - pEF, mod , Mod MR, Grade 3/4 diastolic dysfunction - Coreg 25 mg PO BID - Digoxin 125 mg PO daily - Continue to titrate meds Troponin elevation now with chest pain - ECHO noted above - Trend not consistent with ACS - Likely type 2 - Eliquis 5 mg PO BID - Will consider outpatient stress - Patient noted chest pain today - Started on Imdur 30 mg ER daily - NPO at midnight - Nuclear stress test in am Acute respiratory distress due to acute diastolic heart failure exacerbation / Mod /MR - Likely due to rapid rate / Fluid overload / undiagnosed sleep apnea - Pro-BNP 1457 - Chest x-ray - Cardiomegaly w/o pulmonary vascular congestion - CTA chest - No PE, Cardiomegaly, anasarca - Supplemental 02 as needed - Lasix 40 mg IV BID - 40 mg PO BID today - ECHO noted above - Net negative 2119 balance - U/o 0.25 ml/kg/hr - Net positive balance today - > 520 Uncontrolled Hypertension - Coreg 25 mg PO BID - Losartan 50 mg PO daily - Added Imdur 30 mg ER daily - Lasix as above. - BP improved Recent Fall with neck pain - CT cervical - No acute fracture - R.Shoulder x-ray - No acute fracture - Pain control - OT consult LLE numbness - New constant - normal at time of my eval - No motor deficits - May consider head ct - has been on eliquis for cva prevention - Bp gradually improved Urinary tract infection - Culture - Escherichia coli - Rocephin in er - Change to omnief 300 mg po BID x 7 days Hypothyroidism - Non-compliant with medication - Unknown meds or doses - TSH upper limits - Will repeat outpatient prior to starting replacement - Recheck TSH in 4 weeks Hx of Asthma - No wheezing on exam - Xopenex PRN for dyspnea DVT ppx - Eliquis 5 mg p.o. b.i.d. Attestations Medical Necessity Statement*: will require further hospitalization for ongoing cardiac workup. Time Spent in Patient Care: Greater than 35 minutes (>than 50% of time spent in counselling and/or direct pt care on unit) . Coding Level of Care Code Acute Drug Room Clerk for Jeng Fwd Diagnoses New onset atrial fibrillation I48.91 Acute congestive heart failure I50.9 Heart failure type: unspecified Neck pain M54.2 Fall W19.XXXA Abnormal finding on urinalysis R82.90
[2020-09-19] MEDS: cefdinir 300 MG CAPSULE PO ×2 (09:50→18:37)
[2020-09-19] MEDS: isosorbide mononitrate ER 30 mg Tablet PO (09:51)
[2020-09-19] MEDS: carvedilol 25 mg Tablet PO ×2 (11:07→21:46)
[2020-09-19] MEDS: acetaminophen 325 mg Tablet 650 MG PO (15:46)
--- NOTE | 2020-09-19 19:55 | PC.NURSE ---
Received report from KRISTINE Roy. Patient resting bed watching tv. Discussed planned stress test for 09/20/20. Patient verbalized complete understanding. Patient is ambulatory with assistance. Denies pain or needs at this time. No distress observed.
--- NOTE | 2020-09-19 21:48 | PC.NURSE ---
Confirmed patient verified after scan and green scan bar in medication administration present prior to saving.
[2020-09-20] VITALS (31 sets, daily range): BP systolic 82–142; BP diastolic 53–106; PULSE 79–109; RESP 13–36; TEMP 35.6–36.9; O2SAT 94–98
[2020-09-20 05:14] LABS: Basophils % 0.3 %; Eosinophils # 0.1 10^3/uL (0.0-0.8); Eosinophils % 1.6 %; Hematocrit 45.8 % (37.0-47.0); Hemoglobin 14.5 g/dL (11.5-15.3); Lymphocytes # 2.7 10^3/uL (0.8-4.8); Mean Corpuscular HGB Conc 31.7 g/dL (30.0-36.0); Mean Corpuscular Hemoglobin 29.8 pg (28.0-34.0); Mean Corpuscular Volume 94.2 fL (81-99); Mean Platelet Volume 10.9 fL (7.4-10.4); Monocytes # 0.6 10^3/uL (0.2-0.9); Nucleated Red Blood Cells % 0 %; Platelet Count 231 10^3/cmm (130-400); Red Blood Count 4.86 10^6/uL (4.1-5.3); Red Cell Distribution Width 13.4 % (12.1-15.1); White Blood Count 7.4 10^3/uL (4.0-10.0)
[2020-09-20 05:34] LABS: Alanine Aminotransferase 22 U/L (0-33); Albumin Level 3.2 g/dL (3.5-5.2); Alkaline Phosphatase 90 IU/L (35-105); Anion Gap 14.2 (5-19); Aspartate Amino Transferase 18 U/L (0-32); Blood Urea Nitrogen 32 mg/dL (6-20); Calcium 9.1 mg/dL (8.5-10.5); Carbon Dioxide 26 mmol/L (22-29); Chloride 101 mmol/L (98-107); Globulin 3.3 g/dL (1.3-4.6); Glucose 97 mg/dL (65-115); Osmolality Calculated 291 mOsm/kg (285-295); Potassium 4.2 mmol/L (3.5-5.1); Sodium 137 mmol/L (136-145); Total Bilirubin 0.6 mg/dL (0.15-1.2); Total Protein 6.5 g/dL (6.6-8.7)
--- NOTE | 2020-09-20 07:00 | NMCV_ITS ---
NM matthias perf SPECT r/s* [id number] Venus Ayala Age: 49 Gender: F : 1970 Exam Date: 09/20/2020 07:00 Ordering Phys: Padma Ureña MD Technologist: ANIKA Oliveira Exam Location: [facility] Indications: Neck pain, difficulty breathing STRESS TEST Please see separate stress test report in [facility] for full findings IMAGE PROTOCOL Rest/Stress 1 Lexiscan Day Radiopharmaceutical Dose (mCi) Administration Site Administered by Rest: Tc-99m 11.0 IV ANIKA Sinclair Sestamibi Stress:Tc-99m 35.9 IV ANIKA Oliveira Sestamikarin Rest: 20-Sep-2020 60 Discovery 630 Stress: 20-Sep-2020 45 Discovery 630 0.4mg Lexiscan. Images obtained in supine and prone position. SPECT RESULTS Technical Quality: Good Raw Data Analysis: Breast attenuation, Soft tissue attenuation Image Corrections: No attenuation or motion correction applied Summed Stress Score: 2 Summed Rest Score: 1 Summed Difference Score: 1 PERFUSION FINDINGS Small area of fixed perfusion defect surrounded by mild to moderate reversibility in the basal to distal inferior wall suggestive of old myocardial infarction surrounded by mild to moderate ischemia. FUNCTIONAL RESULTS (calculated via Gated SPECT) Stress Image LV EF (%): 40 Stress EDV (mL):139 TID: 0.94 Stress ESV (mL):84 Rest Image LV EF (%): 40 FUNCTIONAL FINDINGS: Global hypokinesis with moderately depressed LV function 40%. IMPRESSIONS Small area of old myocardial infarction versus scarring surrounded by moderate area of elba-infarct ischemia in basal to distal inferior wall suggestive of possible lesion in RCA territory. EKG segment will be documented separately. Marcela Lai MD (Electronically Signed) Final Date: 20 September 2020 11:40 S
[2020-09-20] MEDS: regadenoson 0.4 Mg/5 ml Syringe IVP (08:40)
--- NOTE | 2020-09-20 09:20 | PC.NURSE ---
Dr. Ureña notified that 0800 lasix wasn't given before patient went to stress test. Okayed to give dose when patient returned to the floor.
--- NOTE | 2020-09-20 10:00 | PC.NURSE ---
patient back from stress test. resting on the side of the bed.
[2020-09-20] MEDS: digoxin 125 mcg Tablet PO (10:05)
[2020-09-20] MEDS: cefdinir 300 MG CAPSULE PO ×2 (10:05→17:36)
[2020-09-20] MEDS: isosorbide mononitrate ER 30 mg Tablet PO (10:05)
[2020-09-20] MEDS: apixaban 5 mg Tablet PO (10:06)
[2020-09-20] MEDS: FUROsemide 40 mg Tablet PO ×2 (10:06→15:42)
[2020-09-20] MEDS: losartan 50 mg Tablet PO (10:06)
[2020-09-20] MEDS: HYDROcodone-acetaminophen 5-325 mg Tablet 1 TAB PO (10:11)
--- NOTE | 2020-09-20 10:11 | PC.NURSE ---
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
--- NOTE | 2020-09-20 13:13 | PC.NURSE ---
Ming gave order to give 600mg plavix, hold eliquis tonight and tomorrow morning. request for left heart cath for 1100 tomorrow. NPO after midnight.
[2020-09-20] MEDS: clopidogrel 300 mg Tablet 600 MG PO (13:20)
--- NOTE | 2020-09-20 14:01 | PM.CONSULT ---
Providers/Reason For Consult Consulting Physican/Specialty*: Cardiology Reason for Consult*: Atrial fibrillation, CHF, abnormal EKG changes with chest pain Attending Physician: Padma Ureña History of Present Illness History of Present Illness Venus roper is a 49 year old female past medical history significant for obesity, hypertension, diastolic dysfunction neck pain was admitted with new onset of atrial fibrillation. She was rate controlled and started on Eliquis. During her admission patient was complaining of chest pressure and tightness for which he underwent stress test which revealed inferior wall ischemia it is the reason we have been asked to come and see the patient according to the patient he in the past had off-and-on chest pressure but this time it was more pronounced. We therefore discussed with the patient left heart cath for further exploration. She would like to proceed with left heart cath/PCI if indicated. She understand risk benefit and alternative for the procedure. Review of Systems General: Reports: 10 or more systems reviewed and unremarkable except in HPI and below Const: Reports: fatigue; Denies: fever(s), chills, body aches, malaise, night sweats or diaphoresis Eyes: Denies: blurry vision or eye redness ENMT: Denies: throat pain, dental pain or disequilibrium Card: Reports: dyspnea on exertion and orthopnea; Denies: chest pain, palpitations, irregular heart rhythm, lightheadedness or syncope Resp: Reports: dyspnea; Denies: productive cough, non-productive cough, wheezing or chest congestion GI: Denies: abdominal pain, nausea or vomiting : Denies: difficulty voiding or dysuria Musc: Reports: neck pain; Denies: back pain, joint pain, joint stiffness, muscle cramps or muscle weakness Skin/Breast: Denies: rash or pruritus Neuro: Denies: headache(s), weakness in extremities, difficulty walking, frequent falls or behavioral changes Psych: Denies: anxiety, depression, hopelessness, change in appetite or irritability Сергей/Lymph: Denies: easy bruising Meds/Allergies Home Medications and Allergies Home Medications Medication Instructions Recorded Confirmed Last Taken Type apixaban [Eliquis] 5 mg PO BID #60 tab 09/22/20 09/29/20 Unknown Rx carvedilol 25 mg PO Q12H #60 tab 09/22/20 09/29/20 Unknown Rx diltiazem HCl 120 mg PO DAILY #30 cap 09/22/20 09/29/20 Unknown Rx furosemide 40 mg PO BID@,16 #30 tab 09/22/20 09/29/20 Unknown Rx losartan 50 mg PO DAILY #30 tab 09/22/20 09/29/20 Unknown Rx Allergies Allergy/AdvReac Type Severity Reaction Status Date / Time No Known Allergies Allergy Verified 09/29/20 10:52 Current Medications Current Medications Generic Name Dose Route Start Last Admin Trade Name Freq PRN Reason Stop Dose Admin Acetaminophen 650 mg 09/13/20 15:03 09/19/20 15:46 Acetaminophen 325 Mg Tablet PO 650 mg Q6H PRN Administration Mild/Mod Pain Or Temp >/= 101 Hydrocodone Bitart/Acetaminophen 1 tab 09/13/20 15:03 09/20/20 10:11 Hydrocodone-Acetaminophen 5-325 Mg Tablet PO 1 tab Q4H PRN Administration MODERATE TO SEVERE PAIN Apixaban 5 mg 09/15/20 18:00 09/20/20 10:06 Apixaban 5 Mg Tablet PO 5 mg BID JACE Administration Carvedilol 25 mg 09/18/20 10:30 09/19/20 21:46 Carvedilol 25 Mg Tablet PO 25 mg Q12H JACE Administration Cefdinir 300 mg 09/15/20 18:00 09/20/20 10:05 Cefdinir 300 Mg Capsule PO 300 mg BID JACE Administration Protocol Digoxin 125 mcg 09/16/20 14:30 09/20/20 10:05 Digoxin 125 Mcg Tablet PO 125 mcg DAILY JACE Administration Furosemide 40 mg 09/19/20 08:00 09/20/20 10:06 Furosemide 40 Mg Tablet PO 40 mg BID@ JACE Administration Isosorbide Mononitrate 30 mg 09/19/20 09:00 09/20/20 10:05 Isosorbide Mononitrate Er 30 Mg Tablet PO 30 mg DAILY JACE Administration Levalbuterol HCl 0.63 mg 09/13/20 18:05 09/15/20 07:27 Levalbuterol 0.63 Mg/3 Ml Neb INHALATION 0.63 mg Q4H.RESPIRATORY PRN Administration SHORTNESS OF BREATH Losartan Potassium 50 mg 09/16/20 14:30 09/20/20 10:06 Losartan 50 Mg Tablet PO 50 mg DAILY JACE Administration Nitroglycerin 0.4 mg 09/15/20 03:51 09/15/20 12:54 Nitroglycerin 0.4 Mg Sublingual Tablet SUBLINGUAL 0.4 mg Q5M PRN Administration CHEST PAIN PFSH Acute PFSH: Medical History Aortic stenosis Asthma HTN (hypertension) Hypothyroidism Nonadherence to medication Obesity Post hysterectomy menopause Surgical History H/O hysterectomy with oophorectomy History of cholecystectomy Family History Mother CAD (coronary artery disease) Clotting disorder Social History Smoking and tobacco status: never smoked Alcohol intake: current Alcohol intake frequency: holidays/special occasions only Vitals/I&O/Wt Last Vital Signs Temp 96.8 F L 09/20/20 11:11 Pulse 79 09/20/20 11:11 Resp 16 09/20/20 11:11 BP 108/77 09/20/20 11:11 Pulse Ox 96 09/20/20 11:11 09/19/20 09/20/20 09/20/20 22:59 06:59 14:59 Intake Total 480 / 1200 300 / 1500 240 / 240 Output Total 2500 / 2500 Balance 480 / 1200 -2200 / -1000 240 / 240 Weight last 48 hrs Weight 369 lb Weight 370 lb 12.8 oz Physical Exam Narrative: EXAM NARRATIVE: GENERAL: Patient is alert, awake and oriented x3. NECK: No jugular vein distension. HEENT: No cyanosis. No icterus. No pallor. HEART: Regular S1 and S2. No murmur, rub or gallop. LUNGS: Clear to auscultate bilaterally. ABDOMEN: Soft, nontender and nondistended. Positive bowel sounds. No guarding, rebound or tenderness. CENTRAL NERVOUS SYSTEM: Grossly nonfocal. EXTREMITIES: Lower extremities without edema bilaterally. Pulses palpable in the lower extremities, both dorsalis pedis and posterior tibial. A&P Assessment and plan (1) Chest pain: For abnormal stress test and chest pain we will proceed with left heart cath. Patient has been explained all risk benefit and alternative for the procedure. She understands risk of arrhythmia major GI bleed stroke and . Status: Resolved Qualifiers: Chest pain type: precordial pain Qualified Code(s): R07.2 - Precordial pain (2) New onset atrial fibrillation: Appear to be in sinus rhythm Eliquis is on hold in the last 24 hours. Continue rest of the regimen Status: Acute (3) Acute congestive heart failure: Well compensated now. 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
--- NOTE | 2020-09-20 15:24 | P.PN_ITS ---
Subjective Subjective: Interval history: 49-year-old with past medical history of morbid obesity with BMI of 49kg/m2, asthma, hypothyroidism, hypertension and medical non-complliance due to lack of insurance who presented to the hospital with with shortness of breath. Patient stated this started early today. Denied any chest pain or palpitation. Also denied any recent orthopnea. Noted lower extremity swelling after prolonged standing. No prior cardiac issues. In addition to this she stated she has been experiencing right sided constant neck pain radiating to right upper extremity after she sustained a fall earlier this week on friday. Patient stated she was pushing the cart at [employer] when this occurred. Lost her balance. Denied any symptoms prior to event. No LOC. No recent fever, chills, nausea or vomiting. Denied dysuria, frequency or urgency. No abdominal pain, diarrhea or constipation. Upon arrival to emergency room for evaluation her initial vitals showed a respiratory rate of 20, temperature of 98.6? blood pressure 193/143, and heart rate of 120. initial laboratory workup showed a WBC of 9.3, hemoglobin of 13.9, hematocrit of 44.8 and a platelet count of 240. sodium 140, potassium 4.5, chloride 105, bicarb 26, BUN 16 and creatinine of 0.8. Glucose of 110. AST of 23, ALT of 29 and alkaline phosphatase of 113. initial troponin was 24. proBNP of 1457. Urinalysis showed positive nitrite, negative leukocyte esterase and 15 to 25 wbc's. Imaging studies included CT cervical spine which was negative for any acute fractures. Shoulder x-ray on right was negative. Was noted to have osteoarthritis at multiple levels. Chest x-ray showed cardiomegaly. CTA of chest PE protocol was performed which did not show any evidence of pulmonary embolism however was noted to have mild chronic emphysematous changes with small bilateral pleural effusions. Slight hazy infiltrate in lung bases. Again cardiomegaly was noted with diffuse body wall anasarca. EKG confirmed atrial fibrillation with rapid ventricular response. Patient was given cardizem 25mg IV x 1. In addition was given lasix 40 mg IV x 1, zofran 4 mg IV x1 and morphine 4 mg IV x 1. 09/14/20 Patient noted improvement in respiratory status overnight. Did however note some exertional dyspnea. No chest pain. No palpitations. Remained in atrial fibrillation however rate control was improved. 09/15/20 Noted to have increase in edema and respiratory distress with exertion, rate control improved however has been hypertensive, NO fever or chills. NO nausea or vomiting. No diarrhea or constipation 09/16/2020 Patient noted respiratory distress still. Somewhat improved. Over 2600 mL urine output less evening. Remains in atrial fibrillation. 09/17/20 improving however slowly 09/18/20 Patient noted have dyspnea on exertion today. Noted improvement in respiratory status at rest however with ambulation again becomes dyspnic. No chest pain, no fever, chills, nausea or vomiting. 09/19/20 Overnight patient continued to improve however this am at the time of my eval she complained of chest pain, felt heavy in nature, lasting for a few min and resolving. This is the first time she felt anything like this. Also noted some numbness of left lower extremity below the knee. No complained of decreased mobility or left lower extremity weakness. No fever, chills, nausea or vomiting. 09/20/20 Patient overnight did not have any clinical complaints. Was taken for nuclear stress test this morning. This was found to have moderate reversibility. Cardiology was consulted. No fever chills overnight. No nausea vomiting. Medications: Reviewed: Yes Vitals/I&O/Wt Last Vital Signs Temp 96.1 F L 09/20/20 15:23 Pulse 96 09/20/20 15:23 Resp 17 09/20/20 15:23 BP 126/86 09/20/20 15:23 Pulse Ox 96 09/20/20 15:23 09/20/20 09/20/20 09/20/20 06:59 14:59 22:59 Intake Total 300 / 1500 240 / 240 Output Total 2500 / 2500 Balance -2200 / -1000 240 / 240 Weight last 48 hrs Weight 167.376 kg Weight 168.192 kg Physical Exam Narrative: EXAM NARRATIVE: General: alert,awake, oriented x 3, NAD HEENT: Grossly unremarkable CVS: Irregularly irregular , systolic murmur Chest : CTABL, no wheezing ABD; Soft NT,ND Ext : Mild edema bilaterally, improved from admission, MS 5/ Data : 09/20/20 04:07 09/20/20 04:07 A&P Assessment and plan (1) New onset atrial fibrillation: Status: Acute (2) Acute congestive heart failure: Status: Acute Qualifiers: Heart failure type: unspecified Qualified Code(s): I50.9 - Heart failure, unspecified (3) Neck pain: Status: Acute (4) Fall: Status: Acute (5) Abnormal finding on urinalysis: Status: Acute Newly diagnosed Atrial Fibrillation with rapid ventricular response - S/P Cardizem 25 mg IV x 1 in ER - Chadsvasc2 score 3 - female,chf,htn - Started on Eliquis 5 mg PO BID for CVA prevention - Avoid caffeine / stimulants - ECHO noted - pEF, mod , Mod MR, Grade 3/4 diastolic dysfunction - Coreg 25 mg PO BID - may consider increasing to 37.5 PO BID - Digoxin 125 mg PO daily - Continue to titrate meds Chest pain with abnormal stress test - Cardiology consulted - NPO for now - Plan for cardiac cath today - Imdur 30 mg ER daily Acute respiratory distress due to acute diastolic heart failure exacerbation / Mod /MR - Likely due to rapid rate / Fluid overload / undiagnosed sleep apnea - Pro-BNP 1457 - Chest x-ray - Cardiomegaly w/o pulmonary vascular congestion - CTA chest - No PE, Cardiomegaly, anasarca - Supplemental 02 as needed - Lasix 40 mg IV BID - 40 mg PO BID today - ECHO noted above - Net negative 1480 balance Uncontrolled Hypertension - Coreg 25 mg PO BID - Losartan 50 mg PO daily - Imdur 30 mg ER daily - Lasix as above. - BP improved Recent Fall with neck pain - CT cervical - No acute fracture - R.Shoulder x-ray - No acute fracture - Pain control - OT consult LLE numbness - resolved - New constant - normal at time of my eval - No motor deficits - May consider head ct - has been on eliquis for cva prevention - Bp gradually improved Urinary tract infection - Culture - Escherichia coli - Rocephin in er - Change to omnief 300 mg po BID x 7 days Hypothyroidism - Non-compliant with medication - Unknown meds or doses - TSH upper limits - Will repeat outpatient prior to starting replacement - Recheck TSH in 4 weeks Hx of Asthma - No wheezing on exam - Xopenex PRN for dyspnea DVT ppx - Eliquis 5 mg p.o. b.i.d. Disposition: Discharge planning pending cardiology work up Attestations Medical Necessity Statement*: Patient yajaira require additional day in hospital for cardiology consult and angiogram Time Spent in Patient Care: Greater than 35 minutes (>than 50% of time spent in counselling and/or direct pt care on unit) . 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
--- NOTE | 2020-09-20 15:59 | PC.NURSE ---
curtis on hold per Dr. Lai for evening dose and tomorrow morning.
--- NOTE | 2020-09-20 19:14 | ECG_ITS ---
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
--- NOTE | 2020-09-20 19:20 | PC.NURSE ---
[place] [address]/11. BP 141/75. 1st nitrostat given at 190. Patient reports increased headache and nausea with onset of CP. No relief of chest pain after 1st dose. BP 131/90. 2nd dose given at 190. Informed Dr Castro and received telephone orders for EKG and to start Nitro drip per chest pain protocol. Patient is reporting relief of chest pain after the 2nd dose and is currently refusing 3rd dose of nitrostat presently.
[2020-09-20] MEDS: nitroglycerin drip 50 MG/250 ML PREMIX IV (19:47)
[2020-09-21] VITALS (53 sets, daily range): BP systolic 93–189; BP diastolic 58–164; PULSE 78–148; RESP 13–30; TEMP 36.4–37; O2SAT 96–98
--- NOTE | 2020-09-21 07:50 | PC.NURSE ---
patient was resting in bed during assessment. patient expressed the need to urinate, patient transferred self to bedside commode and call light within reach. no other needs identified at this time.
[2020-09-21] MEDS: FUROsemide 40 mg Tablet PO ×2 (08:38→15:34)
[2020-09-21] MEDS: losartan 50 mg Tablet PO (08:38)
[2020-09-21] MEDS: isosorbide mononitrate ER 30 mg Tablet PO (08:38)
[2020-09-21] MEDS: cefdinir 300 MG CAPSULE PO (08:39)
[2020-09-21] MEDS: digoxin 125 mcg Tablet PO (08:39)
--- NOTE | 2020-09-21 08:39 | PC.NURSE ---
dr wilson to hold [employer].
[2020-09-21] MEDS: diphenhydrAMINE 50 mg Capsule PO (09:21)
[2020-09-21] MEDS: sodium chloride 0.9% 1,000 ML 50 ML IV (09:23)
--- NOTE | 2020-09-21 11:36 | XACV_ITS ---
Exam Room: [facility] Ht: 165 cm Wt: 167 kg BSA: 2.88 m2 Gender: Female : 1970 Any Known Allergies: No known allergies Exam Priority: Routine Procedure(s): Procedure Description: Diagnostic procedure Procedure Description: Coronary Angiography Diagnostic Cath Status: Elective Diagnostic Findings * No significant disease noted in the Left Main, LAD, Circumflex, or RCA coronary arteries. * Coronary angiography shows right dominance. Conclusions 1. No significant disease noted in the Left Main, LAD, Circumflex, or RCA coronary arteries. 2. Normal left ventricular systolic function. Ejection fraction of 65%. 3. Indication 4. for 5. left heart cath: Abnormal stress test/ chest pain. Recommendations * Continue current medical management and risk factor modification. Diagnostic RX Recommendation: medical therapy and/or counseling Ventriculography Ejection Fraction: 65.0 % Left Ventriculography Findings: * Normal left ventricle ejection fraction 65%. Pressures Phase:Rest AO : 130 / 71 ( 81 ) @ 5:54:00 AM 123 / 82 ( 95 ) @ 6:03:00 AM 117 / 83 ( 91 ) @ 6:03:00 AM LV : 126 / 0 / @ 6:02:00 AM 139 / -4 / @ 6:03:00 AM 136 / -4 / @ 6:03:00 AM Valves Phase:DefaultPhase AV : 11.0 @ 12:08:57 PM AV Mean Gradient: 11.0 @ 12:08:57 PM Clinical Evaluation EBL: 5mL-10mL Procedural Details Procedure Consent Obtained. Pre-Procedure Time Out. Identified patient by full name and date of as verbalized by the patient/guarantor. Does the consent match the physician's order: Yes. Accurate & Complete Informed Consent: Yes. Inpatient/Outpatient History & Physical on Chart: Yes. If H&P is completed, is and addenduem needed: No; If yes, is the addendum complete: N/A. Visualize and Verify Site with Patient/Guarantor: N/A. Relevant Radiology Images available: Yes. Pre-op teaching completed and patient verbalized understanding. The risks, benefits, and alternatives of sedation and/or procedure were discussed by physician. The patient agrees to continue. Procedure started. Correct patient, site and procedure confirmed by cath team. Current diagnosis: Chest Pain. PERRLA. 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 Lungs clear x 5 lobes. IV Site on Arrival: 20 gauge in the left anticubital. IV Fluids: 0.9% NaCl at KVO. 0 mL infused prior to cardiac cath rn. Oxygen started at 2liters/min via nasal canula. bilateral groins was prepped with chloroprep then draped in the usual sterile fashion. right radial was prepped with chloroprep then draped in the usual sterile fashion. Physician notified. Baseline sample Acquired. HR: 96 BPM. Physician arrived. Equipment: 6F - Radial. HSTYLE Manifold Kit Model BT 2000. Cardiac Cath Pack. Heparinized Saline (2 units/mL), 1000 mL bag. Physician scrubbed in. Immediate Pre-Procedure Time Out. Correct Patient: Yes; Correct Procedure: Yes; Correct Site: Yes; Correct Patient Position: Yes; Correct Supplies: Yes; Dried Flammable Prep: Yes; Blood Products Available: No;. Lidocaine 1% infiltrated to the right radial. Arterial access obtained. A 5 [place] TIG catheter in over wire. Multiple views taken of right coronary artery. Catheter out. A 5 [place] JL4 catheter in over wire. Multiple views taken of left coronary artery. Catheter out. A 6 [place] Angled Pig catheter in over wire. EDP Sample taken: LV 126/0,10; HR: 109 BPM; SpO2: 95%. LV gram performed in GAR @ 10 mL/second for a total of 30 mL. EDP Sample taken: LV 139/-5,10; HR: 108 BPM; SpO2: 95%. Pullback taken: LV 136/-5,13; AO 123/82(95); Mean: 11mmHg, Peak to Peak: 11mmHg, SEP: 11sec/min; HR: 107 BPM; SpO2: 95%. Catheter out. TR band placed. Hemostasis obtained. A TR Band was successful obtaining hemostatsis at the Radial artery insertion site. Vital chart was stopped. Post Procedure: Pulses reassessed and unchanged. PERRLA. 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 No VTE prophylaxis required. Medication's Wasted: Lidocaine 1% = 18 mL. Medication's Wasted: Nitro = 49.8 mg. Medication's Wasted: Heparin = 1000 units. Total IV fluids: 100 mL. Medication's Wasted: Other = Fentanyl 50mcg. Contrast type used: Omnipaque 300 mgI/mL, 500 mL bottle. Post-op diagnosis: Normal Coronaries. Complications: None. Estimated blood loss: 5mL-10mL. Procedure completed. Patient transferred by wheelchair to 1st floor. Access Site Site: Radial artery Sheath Size: 6 Fr Hemostasis Method: TR Band Hemostasis Success: Successful Procedure Medications Start: 11:44 AM Stop: 11:44 AM Medication: Versed Amount: 1 mg Route: I.V. Start: 11:44 AM Stop: 11:44 AM Medication: Fentanyl Amount: 50 mcg Route: I.V. Start: 11:48 AM Stop: 11:48 AM Medication: Versed Amount: 1 mg Route: I.V. Start: 11:51 AM Stop: 11:51 AM Medication: Nitrogylcerin Amount: 200 mcg Route: I.A. Start: 11:54 AM Stop: 11:54 AM Medication: Heparin Amount: 5000 units Route: I.V. I, the attending physician, have reviewed and verified all procedure medications. Yes, all medications given per verbal order History/Risk Factors Hypertension: Yes Dyslipidemia: No Peripheral Arterial Disease (PAD): No Myocardial Infarction (MD): No Obesity: Yes Renal Disease: No Tobacco Use: Never Prior Interventions PCI: No CABG: No Valve Surgery: No Report Signatures Finalized by Marcela Lai MD on 10/05/2020 05:53 PM
--- NOTE | 2020-09-21 11:42 | W.PM.OPSUD ---
Surgery/Procedure H&P Update DATE OF PROCEDURE: September 21, 2020 DATE H&P PERFORMED: 09/20/20 H&P UPDATE INFORMATION: I have reviewed H&P completed within last 30 days, I have examined patient prior to procedure and No changes to prior documentation PREOP DIAGNOSIS: Abnormal stress test chest pain PLANNED PROCEDURE: Operation Date: 09/21/20 11:05 Proposed Procedures p Cardiac Catheterization(Left) - Marcela Lai MD PATIENT REASSESSED PRIOR TO SEDATION, WITH NO CHANGE NOTED: Yes PHYSICAL EXAM: alert, oriented x 3, clear to auscultation bilaterally and regular rate & rhythm AIRWAY EVAL/ANESTHESIA PLAN: ASA II, Risks, benefits & alternatives of sedation and/or procedure discussed and Patient agrees to continue as planned
--- NOTE | 2020-09-21 12:08 | P.PN_ITS ---
Subjective Subjective: Interval history: Status post left heart cath with no significant disease in the coronary arteries. Vitals/I&O/Wt Last Vital Signs Temp 97.8 F 09/21/20 07:37 Pulse 104 H 09/21/20 10:43 Resp 16 09/21/20 10:43 BP 150/84 09/21/20 08:38 Pulse Ox 97 09/21/20 10:43 09/20/20 09/21/20 09/21/20 22:59 06:59 14:59 Intake Total 241.2 / 481.2 Output Total 550 / 550 Balance 241.2 / 481.2 -550 / -68.8 Weight last 48 hrs Weight 368 lb 11.2 oz Weight 369 lb Physical Exam Narrative: EXAM NARRATIVE: GENERAL: Patient is alert, awake and oriented x3. NECK: No jugular vein distension. HEENT: No cyanosis. No icterus. No pallor. HEART: Regular S1 and S2. No murmur, rub or gallop. LUNGS: Clear to auscultate bilaterally. ABDOMEN: Soft, nontender and nondistended. Positive bowel sounds. No guarding, rebound or tenderness. CENTRAL NERVOUS SYSTEM: Grossly nonfocal. EXTREMITIES: Lower extremities without edema bilaterally. Data : 09/20/20 04:07 09/20/20 04:07 A&P Assessment and plan (1) Chest pain: S/p left heart catheter did not show any significant stenosis.*Cardiac cause for aortic stenosis should be sought up Status: Acute Qualifiers: Chest pain type: precordial pain Qualified Code(s): R07.2 - Precordial pain (2) Hypertensive urgency: Continue to optimize medicine add ARB Status: Acute (3) Aortic stenosis: Patient has moderate aortic stenosis aortic valve area is 1.8 cm? by continue to equation through echocardiogram continue to monitor as an outpatient with cardiology Status: Acute Qualifiers: Cardiac valve disease etiology: nonrheumatic Qualified Code(s): I35.0 - Nonrheumatic aortic (valve) stenosis (4) Acute congestive heart failure: Well compensated. Continue meds Status: Acute Qualifiers: Heart failure type: unspecified Qualified Code(s): I50.9 - Heart failure, unspecified Attestations Medical Necessity Statement*: Patient requires continuation hospitalization for above defined care. 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
--- NOTE | 2020-09-21 12:30 | PC.NURSE ---
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 tr band to right wrist. no hematoma noted. call light within reach. no other needs identified at this time.
--- NOTE | 2020-09-21 13:08 | PM.PN ---
Subjective Subjective: Interval history: 49-year-old with past medical history of morbid obesity with BMI of 49kg/m2, asthma, hypothyroidism, hypertension and medical non-complliance due to lack of insurance who presented to the hospital with with shortness of breath. Patient stated this started early today. Denied any chest pain or palpitation. Also denied any recent orthopnea. Noted lower extremity swelling after prolonged standing. No prior cardiac issues. In addition to this she stated she has been experiencing right sided constant neck pain radiating to right upper extremity after she sustained a fall earlier this week on friday. Patient stated she was pushing the cart at [employer] when this occurred. Lost her balance. Denied any symptoms prior to event. No LOC. No recent fever, chills, nausea or vomiting. Denied dysuria, frequency or urgency. No abdominal pain, diarrhea or constipation. Upon arrival to emergency room for evaluation her initial vitals showed a respiratory rate of 20, temperature of 98.6? blood pressure 193/143, and heart rate of 120. initial laboratory workup showed a WBC of 9.3, hemoglobin of 13.9, hematocrit of 44.8 and a platelet count of 240. sodium 140, potassium 4.5, chloride 105, bicarb 26, BUN 16 and creatinine of 0.8. Glucose of 110. AST of 23, ALT of 29 and alkaline phosphatase of 113. initial troponin was 24. proBNP of 1457. Urinalysis showed positive nitrite, negative leukocyte esterase and 15 to 25 wbc's. Imaging studies included CT cervical spine which was negative for any acute fractures. Shoulder x-ray on right was negative. Was noted to have osteoarthritis at multiple levels. Chest x-ray showed cardiomegaly. CTA of chest PE protocol was performed which did not show any evidence of pulmonary embolism however was noted to have mild chronic emphysematous changes with small bilateral pleural effusions. Slight hazy infiltrate in lung bases. Again cardiomegaly was noted with diffuse body wall anasarca. EKG confirmed atrial fibrillation with rapid ventricular response. Patient was given cardizem 25mg IV x 1. In addition was given lasix 40 mg IV x 1, zofran 4 mg IV x1 and morphine 4 mg IV x 1. 09/14/20 Patient noted improvement in respiratory status overnight. Did however note some exertional dyspnea. No chest pain. No palpitations. Remained in atrial fibrillation however rate control was improved. 09/15/20 Noted to have increase in edema and respiratory distress with exertion, rate control improved however has been hypertensive, NO fever or chills. NO nausea or vomiting. No diarrhea or constipation 09/16/2020 Patient noted respiratory distress still. Somewhat improved. Over 2600 mL urine output less evening. Remains in atrial fibrillation. 09/17/20 improving however slowly 09/18/20 Patient noted have dyspnea on exertion today. Noted improvement in respiratory status at rest however with ambulation again becomes dyspnic. No chest pain, no fever, chills, nausea or vomiting. 09/19/20 Overnight patient continued to improve however this am at the time of my eval she complained of chest pain, felt heavy in nature, lasting for a few min and resolving. This is the first time she felt anything like this. Also noted some numbness of left lower extremity below the knee. No complained of decreased mobility or left lower extremity weakness. No fever, chills, nausea or vomiting. 09/20/20 Patient overnight did not have any clinical complaints. Was taken for nuclear stress test this morning. This was found to have moderate reversibility. Cardiology was consulted. No fever chills overnight. No nausea vomiting. 09/21/20 Patient continued to have have intermittent episode of chest pain. Was taken for cardiac cath, angiogram in am, no intervention performed. Medications: Reviewed: Yes Vitals/I&O/Wt Last Vital Signs Temp 97.8 F 09/21/20 07:37 Pulse 104 H 09/21/20 10:43 Resp 16 09/21/20 10:43 BP 150/84 09/21/20 08:38 Pulse Ox 97 09/21/20 10:43 09/20/20 09/21/20 09/21/20 22:59 06:59 14:59 Intake Total 241.2 / 481.2 Output Total 550 / 550 Balance 241.2 / 481.2 -550 / -68.8 Weight last 48 hrs Weight 167.24 kg Weight 167.376 kg Physical Exam Narrative: EXAM NARRATIVE: General: alert,awake, oriented x 3, NAD HEENT: Grossly unremarkable CVS: Irregularly irregular , systolic murmur Chest : CTABL, no wheezing ABD; Soft NT,ND Ext : Mild edema bilaterally, improved from admission, MS 5/ Data : 09/20/20 04:07 09/20/20 04:07 A&P Assessment and plan (1) New onset atrial fibrillation: Status: Acute (2) Acute congestive heart failure: Status: Acute Qualifiers: Heart failure type: unspecified Qualified Code(s): I50.9 - Heart failure, unspecified (3) Neck pain: Status: Acute (4) Fall: Status: Acute (5) Abnormal finding on urinalysis: Status: Acute Newly diagnosed Atrial Fibrillation with rapid ventricular response - S/P Cardizem 25 mg IV x 1 in ER - Chadsvasc2 score 3 - female,chf,htn - Eliquis 5 mg PO BID for CVA prevention - Avoid caffeine / stimulants - ECHO noted - pEF, mod , Mod MR, Grade 3/4 diastolic dysfunction - Coreg 25 mg PO BID - may consider increasing to 37.5 PO BID - Digoxin 125 mg PO daily - Continue to titrate meds Atypical Chest pain s/p angiogram - No CAD on angio - Cardiology consulted - Imdur 30 mg ER daily Acute respiratory distress due to acute diastolic heart failure exacerbation / Mod /MR - Likely due to rapid rate / Fluid overload / undiagnosed sleep apnea - Pro-BNP 1457 - Chest x-ray - Cardiomegaly w/o pulmonary vascular congestion - CTA chest - No PE, Cardiomegaly, anasarca - Supplemental 02 as needed - Lasix 40 mg IV BID - 40 mg PO BID - ECHO noted above Uncontrolled Hypertension - Coreg 25 mg PO BID - Losartan 50 mg PO daily - Imdur 30 mg ER daily - Lasix as above. - BP improved Recent Fall with neck pain - CT cervical - No acute fracture - R.Shoulder x-ray - No acute fracture - Pain control - OT consult LLE numbness - resolved - New constant - normal at time of my eval - No motor deficits - May consider head ct - has been on eliquis for cva prevention - Bp gradually improved Urinary tract infection - Culture - Escherichia coli - Omnief 300 mg po BID x 7 days Hypothyroidism - Non-compliant with medication - Unknown meds or doses - TSH upper limits - Will repeat outpatient prior to starting replacement - Recheck TSH in 4 weeks Hx of Asthma - No wheezing on exam - Xopenex PRN for dyspnea DVT ppx - Eliquis 5 mg p.o. b.i.d. Disposition: Will plan to d/c in am Attestations Medical Necessity Statement*: Continue hospitalization for manage of post coronary angio care and discharge planning. Time Spent in Patient Care: Greater than 35 minutes (>than 50% of time spent in counselling and/or direct pt care on unit). Coding Level of Care Code Acute Sew Out Operator for Marisa Fwd Diagnoses New onset atrial fibrillation I48.91 Acute congestive heart failure I50.9 Heart failure type: unspecified Neck pain M54.2 Fall W19.XXXA Abnormal finding on urinalysis R82.90
--- NOTE | 2020-09-21 15:00 | PC.NURSE ---
tr band removed, dressing place, c/d/i. no hematoma noted. call light within reach. no needs identified at this time.
[2020-09-21] MEDS: dilTIAZem ER (24HR) 120 mg Capsule PO (15:34)
[2020-09-21] MEDS: acetaminophen 325 mg Tablet 650 MG PO (17:52)
--- NOTE | 2020-09-21 17:53 | PC.NURSE ---
dr wilson order to hold curtis lala.
--- NOTE | 2020-09-21 19:46 | PC.NURSE ---
Recieved patient from Day shift nurse. Patient A&O x 4. Skin warm and dry. Right radial site with gauze and clear overlay clean dry and intact with good pulses noted. Patient voiced tenderness in abdomen earlier today but has since resolved had BM today with no noted problems. Patient laying in bed with eyes open and tv on. Will continue to monitor and assist as needed following CPOC
[2020-09-21] MEDS: carvedilol 25 mg Tablet PO (21:07)
[2020-09-22] VITALS (7 sets, daily range): BP systolic 102–127; BP diastolic 66–85; PULSE 70–91; RESP 14–98; TEMP 36.4; O2SAT 95–98
[2020-09-22] MEDS: FUROsemide 40 mg Tablet PO (07:43)
[2020-09-22] MEDS: apixaban 5 mg Tablet PO (08:38)
[2020-09-22] MEDS: isosorbide mononitrate ER 30 mg Tablet PO (08:39)
[2020-09-22] MEDS: losartan 50 mg Tablet PO (08:39)
[2020-09-22] MEDS: dilTIAZem ER (24HR) 120 mg Capsule PO (08:39)
[2020-09-22] MEDS: carvedilol 25 mg Tablet PO (09:46)
--- NOTE | 2020-09-22 11:29 | P.PN_ITS ---
Subjective Subjective: Interval history: 49-year-old with past medical history of morbid obesity with BMI of 49kg/m2, asthma, hypothyroidism, hypertension and medical non-complliance due to lack of insurance who presented to the hospital with with shortness of breath. Patient stated this started early today. Denied any chest pain or palpitation. Also denied any recent orthopnea. Noted lower extremity swelling after prolonged standing. No prior cardiac issues. In addition to this she stated she has been experiencing right sided constant neck pain radiating to right upper extremity after she sustained a fall earlier this week on friday. Patient stated she was pushing the cart at [employer] when this occurred. Lost her balance. Denied any symptoms prior to event. No LOC. No recent fever, chills, nausea or vomiting. Denied dysuria, frequency or urgency. No abdominal pain, diarrhea or constipation. Upon arrival to emergency room for evaluation her initial vitals showed a respiratory rate of 20, temperature of 98.6? blood pressure 193/143, and heart rate of 120. initial laboratory workup showed a WBC of 9.3, hemoglobin of 13.9, hematocrit of 44.8 and a platelet count of 240. sodium 140, potassium 4.5, chloride 105, bicarb 26, BUN 16 and creatinine of 0.8. Glucose of 110. AST of 23, ALT of 29 and alkaline phosphatase of 113. initial troponin was 24. proBNP of 1457. Urinalysis showed positive nitrite, negative leukocyte esterase and 15 to 25 wbc's. Imaging studies included CT cervical spine which was negative for any acute fractures. Shoulder x-ray on right was negative. Was noted to have osteoarthritis at multiple levels. Chest x-ray showed cardiomegaly. CTA of chest PE protocol was performed which did not show any evidence of pulmonary embolism however was noted to have mild chronic emphysematous changes with small bilateral pleural effusions. Slight hazy infiltrate in lung bases. Again cardiomegaly was noted with diffuse body wall anasarca. EKG confirmed atrial fibrillation with rapid ventricular response. Patient was given cardizem 25mg IV x 1. In addition was given lasix 40 mg IV x 1, zofran 4 mg IV x1 and morphine 4 mg IV x 1. 09/14/20 Patient noted improvement in respiratory status overnight. Did however note some exertional dyspnea. No chest pain. No palpitations. Remained in atrial fibrillation however rate control was improved. 09/15/20 Noted to have increase in edema and respiratory distress with exertion, rate control improved however has been hypertensive, NO fever or chills. NO nausea or vomiting. No diarrhea or constipation 09/16/2020 Patient noted respiratory distress still. Somewhat improved. Over 2600 mL urine output less evening. Remains in atrial fibrillation. 09/17/20 improving however slowly 09/18/20 Patient noted have dyspnea on exertion today. Noted improvement in respiratory status at rest however with ambulation again becomes dyspnic. No chest pain, no fever, chills, nausea or vomiting. 09/19/20 Overnight patient continued to improve however this am at the time of my eval she complained of chest pain, felt heavy in nature, lasting for a few min and resolving. This is the first time she felt anything like this. Also noted some numbness of left lower extremity below the knee. No complained of decreased mobility or left lower extremity weakness. No fever, chills, nausea or vomiting. 09/20/20 Patient overnight did not have any clinical complaints. Was taken for nuclear stress test this morning. This was found to have moderate reversibility. Cardiology was consulted. No fever chills overnight. No nausea vomiting. 09/21/20 Patient continued to have have intermittent episode of chest pain. Was taken for cardiac cath, angiogram in am, no intervention performed. Medications: Reviewed: Yes Vitals/I&O/Wt Last Vital Signs Temp 97.5 F L 09/22/20 10:51 Pulse 82 09/22/20 10:51 Resp 18 09/22/20 10:51 BP 105/66 09/22/20 10:51 Pulse Ox 95 09/22/20 10:51 09/21/20 09/22/20 09/22/20 22:59 06:59 14:59 Intake Total 480 / 480 360 / 360 Output Total 550 / 550 Balance -70 / -70 360 / 360 Weight last 48 hrs Weight 168.283 kg Weight 167.24 kg Physical Exam Narrative: EXAM NARRATIVE: General: alert,awake, oriented x 3, NAD HEENT: Grossly unremarkable CVS: Irregularly irregular , systolic murmur Chest : CTABL, no wheezing ABD; Soft NT,ND Ext : Mild edema bilaterally, improved from admission, MS 5/5 Data : 09/20/20 04:07 09/20/20 04:07 A&P Assessment and plan (1) New onset atrial fibrillation: Status: Acute (2) Acute congestive heart failure: Status: Acute Qualifiers: Heart failure type: unspecified Qualified Code(s): I50.9 - Heart failure, unspecified (3) Neck pain: Status: Acute (4) Fall: Status: Acute (5) Abnormal finding on urinalysis: Status: Acute Newly diagnosed Atrial Fibrillation with rapid ventricular response - S/P Cardizem 25 mg IV x 1 in ER - Chadsvasc2 score 3 - female,chf,htn - Eliquis 5 mg PO BID for CVA prevention - Avoid caffeine / stimulants - ECHO noted - pEF, mod , Mod MR, Grade 3/4 diastolic dysfunction - Coreg 25 mg PO BID - may consider increasing to 37.5 PO BID - Digoxin 125 mg PO daily - Continue to titrate meds Atypical Chest pain s/p angiogram - No CAD on angio - Cardiology consulted - Imdur 30 mg ER daily Acute respiratory distress due to acute diastolic heart failure exacerbation / Mod /MR - Likely due to rapid rate / Fluid overload / undiagnosed sleep apnea - Pro-BNP 1457 - Chest x-ray - Cardiomegaly w/o pulmonary vascular congestion - CTA chest - No PE, Cardiomegaly, anasarca - Supplemental 02 as needed - Lasix 40 mg IV BID - 40 mg PO BID - ECHO noted above Uncontrolled Hypertension - Coreg 25 mg PO BID - Losartan 50 mg PO daily - Imdur 30 mg ER daily - Lasix as above. - BP improved Recent Fall with neck pain - CT cervical - No acute fracture - R.Shoulder x-ray - No acute fracture - Pain control - OT consult LLE numbness - resolved - New constant - normal at time of my eval - No motor deficits - May consider head ct - has been on eliquis for cva prevention - Bp gradually improved Urinary tract infection - Culture - Escherichia coli - Omnief 300 mg po BID x 7 days Hypothyroidism - Non-compliant with medication - Unknown meds or doses - TSH upper limits - Will repeat outpatient prior to starting replacement - Recheck TSH in 4 weeks Hx of Asthma - No wheezing on exam - Xopenex PRN for dyspnea DVT ppx - Eliquis 5 mg p.o. b.i.d. Disposition: Will plan to d/c in am Coding Level of Care Code Acute Basic Combatant Swimmer for Chg Fwd Diagnoses New onset atrial fibrillation I48.91 Acute congestive heart failure I50.9 Heart failure type: unspecified Neck pain M54.2 Fall W19.XXXA Abnormal finding on urinalysis R82.90
[2020-09-22 12:16] LABS: Anion Gap 11.3 (5-19); Blood Urea Nitrogen 23 mg/dL (6-20); Calcium 9.2 mg/dL (8.5-10.5); Carbon Dioxide 30 mmol/L (22-29); Chloride 100 mmol/L (98-107); Glomerular Filtration Rate 75.6 mL/min (90-130); Glucose 99 mg/dL (65-115); Osmolality Calculated 288 mOsm/kg (285-295); Potassium 4.3 mmol/L (3.5-5.1); Sodium 137 mmol/L (136-145)
--- NOTE | 2020-09-22 12:51 | P.DS_ITS ---
Discharge Providers Date of Admission: 09/13/20 14:12 Date of Discharge: September 22, 2020 Attending Provider at Admission: Padma Ureña Attending Provider at Discharge: Padma Ureña Diagnoses at Discharge Discharge Diagnosis (1) New onset atrial fibrillation: Status: Acute (2) Acute congestive heart failure: Status: Acute Qualifiers: Heart failure type: unspecified Qualified Code(s): I50.9 - Heart failure, unspecified (3) Neck pain: Status: Acute (4) Fall: Status: Acute (5) Abnormal finding on urinalysis: Status: Acute Reason for Visit Reason for Visit: FALL, NECK PAIN, DIFFICUTLY BREATHING Hospital Course Hospital Course 49-year-old with past medical history of morbid obesity with BMI of 49kg/m2, asthma, hypothyroidism, hypertension and medical non-complliance due to lack of insurance who presented to the hospital with with shortness of breath. Patient stated this started early today. Denied any chest pain or palpitation. Also denied any recent orthopnea. Noted lower extremity swelling after prolonged standing. No prior cardiac issues. In addition to this she stated she has been experiencing right sided constant neck pain radiating to right upper extremity after she sustained a fall earlier this week on friday. Patient stated she was pushing the cart at [employer] when this occurred. Lost her balance. Denied any symptoms prior to event. No LOC. No recent fever, chills, nausea or vomiting. Denied dysuria, frequency or urgency. No abdominal pain, diarrhea or constipation. Upon arrival to emergency room for evaluation her initial vitals showed a respiratory rate of 20, temperature of 98.6? blood pressure 193/143, and heart rate of 120. initial laboratory workup showed a WBC of 9.3, hemoglobin of 13.9, hematocrit of 44.8 and a platelet count of 240. sodium 140, potassium 4.5, chloride 105, bicarb 26, BUN 16 and creatinine of 0.8. Glucose of 110. AST of 23, ALT of 29 and alkaline phosphatase of 113. initial troponin was 24. proBNP of 1457. Urinalysis showed positive nitrite, negative leukocyte esterase and 15 to 25 wbc's. Imaging studies included CT cervical spine which was negative for any acute fractures. Shoulder x-ray on right was negative. Was noted to have osteoarthritis at multiple levels. Chest x-ray showed cardiomegaly. CTA of chest PE protocol was performed which did not show any evidence of pulmonary embolism however was noted to have mild chronic emphysematous changes with small bilateral pleural effusions. Slight hazy infiltrate in lung bases. Again cardiomegaly was noted with diffuse body wall anasarca. EKG confirmed atrial fibrillation with rapid ventricular response. Patient was given cardizem 25mg IV x 1. In addition was given lasix 40 mg IV x 1, zofran 4 mg IV x1 and morphine 4 mg IV x 1.Patient was continued on Lasix 40 mg IV b.i.d.. She was able to diurese very well. Respiratory status has gradually improved. In addition to this patient was requiring multiple medication changes to obtain adequate control of heart rate. This had improved with Coreg 25 mg q.12, Cardizem 120 mg p.o. daily. Additionally was started on Eliquis 5 mg twice daily for CVA prevention given her chads score of 3. Patient started to complain of chest pain intermittently. Nuclear stress test was performed which showed an area of possible reversible ischemia. Cardiology was consulted. Patient was taken for coronary angiogram which did not show any obstructive coronary disease. Post cardiac catheterization patient continued to improve and on 09/22 was stable and comfortable for discharge home. Physical Exam Narrative: EXAM NARRATIVE: EXAM NARRATIVE: General: alert,awake, oriented x 3, NAD HEENT: Grossly unremarkable CVS: Irregularly irregular , systolic murmur Chest : CTABL, no wheezing ABD; Soft NT,ND Ext : Mild edema bilaterally, improved from admission, MS 5/ Discharge Data Data Completed and Pending: Completed Studies During Hospitalization Category Date Time Status CT angio chest PE protcl [id number] Stat Cat Scan 09/13/20 12:[address] cervical spin wo con* [id number] Urge nt Cat Scan 09/13/20 11:02 Completed Sestamibi Stress Test Request Routi ne Exams 09/19/20 08:44 Completed XR chest 1V bridger ble [id number] Routine Exams 09/19/20 07:00 Completed XR chest 1V bridger ble [id number] Stat Exams 09/13/20 11:02 Completed XR shoulder RT mi n 2V* [id number] Stat Exams 09/13/20 11:47 Completed NM matthias perf SPECT r/s* [id number] Routin e Nuc Med 09/20/20 07:00 Completed CV echo complete* [id number] Routine Ultrasound 09/14/20 05:00 Completed Pending at discharge Category Date Time Status SAT INSTRUCTOR request for service Routin e Exams 09/21/20 11:36 Taken Basic Metabolic P dania Stat Lab 09/22/20 10:52 Ordered Labs from last 24 hours 09/22/20 11:50 Sodium 137 Potassium 4.3 Chloride 100 Carbon Dioxide 30 H Anion Gap 11.3 BUN 23 H Creatinine 0.8 GFR Calculation 75.6 L Glucose 99 Calculated Osmolal ity 288 Calcium 9.2 Vitals: Last Vital Signs Temp 97.5 F L 09/22/20 12:18 Pulse 82 09/22/20 12:18 Resp 18 09/22/20 12:18 BP 105/66 09/22/20 12:18 Pulse Ox 95 09/22/20 12:18 Discharge Plan Discharge Patient Disposition: Home Condition: Stable Prescriptions: New furosemide 40 mg Tablet 40 mg PO BID@08,16 Qty: 30 RF: 0 carvedilol 25 mg Tablet 25 mg PO Q12H Qty: 60 RF: 0 diltiazem HCl 120 mg Capsule,Extended Release 24hr 120 mg PO DAILY Qty: 30 RF: 0 Eliquis 5 mg Tablet 5 mg PO BID Qty: 60 RF: 0 losartan 50 mg Tablet 50 mg PO DAILY Qty: 30 RF: 0 Discontinued loperamide [Imodium] 2 mg Capsule 2 mg PO Q4H PRN (Reason: Diarrhea) RF: 0 diphenhydramine-acetaminophen [Tylenol PM Extra Strength] 25-500 mg Tablet 1 - 2 tab PO Q4H PRN (Reason: Pain) RF: 0 Oil Hormones See Rx Instructions .ROUTE .COMPLEX RF: 0 Discharge Orders: Discharge Order (Routine); Ordered 09/22/20 Ordered By: Padma Ureña Other Ambulatory Orders: Basic Metabolic Panel (Routine) Timeframe: 1 Week Facility: [facility] - Location: Lab - Main Lab Ordered By: Padma Ureña Referrals: Elisa Morgan FNP [Nurse Practitioner] - 09/29/20 10:30 am (You have a post procedure followup with MADISYN Byers at [facility] on September 29 at 10:30am. They will schedule a cardiology followup with Dr. Lai at this appointment.) Melissa Abbasi FNP [Referring] - 09/26/20 10:30 am (You have a hospital followup and BMP Bloodwork done with MADISYN Boldne on September 26 at 10:30am) Discharge Diet: Cardiac Discharge Activity: Increase activity as tolerated Patient Instructions: Diltiazem (By mouth), Furosemide (By mouth), Losartan (By mouth), Carvedilol (By mouth), Apixaban (By mouth), Left Heart Catheterization (DC), CHF Stoplight, Chest Pain Stoplight, Post Angiogram Home Care Instructions Activity Restrictions/Additional Instructions: Please return to ER if recurrence of chest pain, trouble breathing, or palpitation. Upon returning home please check and record 1. Check blood pressure twice daily after 30 mins of rest 2. Check weight daily Discharge Attestations Time Spent in Discharge Care*: greater than 30 min Specific Discharge Activities: educating patient, educating and/or supporting family/caregiver, discussing with pcp/other providers, discussing with social work case manager/social workers/dc planners, documenting/other paperwork and evaluating patient/reviewing data Status at Discharge: Cognitive status at discharge: cognitively intact , Behavioral status at discharge: cooperative , Functional status at discharge: independent ambulation Overall status at discharge: patient is progressing back to baseline Quality Metrics Clinical Quality Measures During this hospital stay, did patient experience: None Coding Level of Care Code Acute Newspaper Deliverer for Marisa Herrera Diagnoses New onset atrial fibrillation I48.91 Acute congestive heart failure I50.9 Heart failure type: unspecified Neck pain M54.2 Fall W19.XXXA Abnormal finding on urinalysis R82.90
--- NOTE | 2020-09-22 13:53 | PC.CHAP ---
Pastoral Care Encounter/Spiritual Assessment Type of Contact [] Declined veterinary laboratory diagnostician visit [] Patient/Family/Request visit [] Outpatient visit [xx] Follow-up visit [] Physician referral [] Code/Alert [xx] Routine visit [] Staff referral [] Actively dying [] Patient sleeping [] Family support [] [] Out of room [] Palliative care [] [] Receiving care in room [] Pre-surgical visit [] Trauma [xx] Long length of stay [] ICU visit [] Other: Relational/Emotional Strength [xx] Patient feels connected with others/family/visitors/staff [] Distress [] Loneliness/isolation [] Abandonment Spirituality of Patient [xx] Person of Perri [] Attends Zoroastrian of their Perri [xx] Believes in Prayer [xx] Reads Bible or Yazidism materials [] There are Spiritual 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 [xx] Prayer [xx] Active listening [xx] Non-anxious presence [xx] Spiritual/emotional support [] Crisis/trauma care [] Spiritual counseling [] Bereavement support [] Provided bereavement packet [] Provided Bible/devotional materials [] Provided toy/stuffed animal, coloring book to patient or family member [] Provided Communion [] Anointing/[place] [] Salvation [xx] Completed spiritual assessment [] Other: Impact on Illness or Injury [] Angry [] Fearful [] Anxious [] Often cries [] Exhaustion [] Unable to work [] Unable to attend hinduism [] Unable to walk/stand [] Unable to read [] Unable to drive [] Unable to eat/drink [] Unable to sleep [] Unable to be with family [] Patient intubated [] Other: Summary Patient thinks she may go home latae today after 10 days in hospital. Patient in very good spirits and wanting to talk. Patient will be going home to spouse, daughter and 2 dogs who she misses them all. She understands she will need to adjust to a different lifestyle due to her health needs but feels confident that she can, especially with family support. Time spent with patient 17 minutes
--- NOTE | 2020-09-22 14:31 | PC.NURSE ---
Discharge to home Instructed pt to take all her meds as prescribed by her doctor this is very important. Educated pt on new meds, chf, chest pain stoplight and monitoring his BP and post angiogram wound care. 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 Discharge packet provided to pt.
== END 2020-09-22 14:30 | disposition home or self-care (01) | DRG 286 ==
LOC: ER 15:44 → CSU 16:05
PROVIDERS: Hospitalist; Internal Medicine Cardiovascular Disease; Nurse Practitioner Family; Admitting Provider Hospitalist; Emergency Provider Family Medicine; Visit Provider Hospitalist
PROC: 4A023N7 Measurement of Cardiac Sampling and Pressure, Left Heart, Percutaneous Approach (ICD-10-PCS; principal; 2020-09-21 11:05)
DX: I11.0 Hypertensive heart disease with heart failure (principal); I50.31 Acute diastolic (congestive) heart failure; Z68.44 Body mass index [BMI] 60.0-69.9, adult; N39.0 Urinary tract infection, site not specified; I48.91 Unspecified atrial fibrillation; E66.01 Morbid (severe) obesity due to excess calories; J45.909 Unspecified asthma, uncomplicated; E03.9 Hypothyroidism, unspecified; Z91.120 Patient's intentional underdosing of medication regimen due to financial hardship; M19.90 Unspecified osteoarthritis, unspecified site; R06.03 Acute respiratory distress; M54.2 Cervicalgia; W19.XXXA Unspecified fall, initial encounter; G47.30 Sleep apnea, unspecified; R20.0 Anesthesia of skin; I35.0 Nonrheumatic aortic (valve) stenosis; Z78.0 Asymptomatic menopausal state
CPT/HCPCS: 12345; 36415; 71045; 71275; 72125; 73030; 78452; 80048; 80053; 80061; 81001; 83036; 83735; 83880; 84443; 84484; 85025; 85378; 87077; 87086; 87186; 93005; 93017; 93306; 93452; 94640; 96372; 97116; 97161; 99283; A9500; C1769; C1887; C1894; J0696; J1644; J1650; J1940; J2250; J2270; J2405; J2785; J3010; J3490; J7030; J7614; Q0163; Q9967

== ENCOUNTER 2020-12-11 17:10 | Outpatient (CLI) | payer BC, SELFPAY ==
--- NOTE | 2020-12-11 17:26 | XRR_ITS ---
PROCEDURE INFORMATION: Exam: XR Left Knee Exam date and time: 12/11/2020 5:26 PM Age: 49 years old Clinical indication: Patient HX: Left knee pain and swelling, no known injury TECHNIQUE: Imaging protocol: XR Left knee. Views: 3 views. COMPARISON: No relevant prior studies available. FINDINGS: Bones/joints: Moderate degenerative changes within the medial compartment and to a lesser degree the lateral compartment. Joint space narrowing with osteophytosis. severe patellofemoral degenerative changes. Soft tissues: Soft tissue prominence along the medial joint line. Correlate regarding tenderness about the medial collateral ligament. XR/XR knee LT 3V* [id number] IMPRESSION: 1. Moderate degenerative changes within the medial compartment and to a lesser degree the lateral compartment. Joint space narrowing with osteophytosis. 2. Severe patellofemoral degenerative changes.
== END 2020-12-11 17:11 | disposition home or self-care (01) ==
LOC: RAD 17:12
PROVIDERS: PCP Nurse Practitioner Family; Visit Provider Nurse Practitioner Family
DX: M25.562 Pain in left knee (principal); M25.462 Effusion, left knee
CPT/HCPCS: 73562

== ENCOUNTER → 2020-12-27 11:44 | Outpatient (BNVA) | payer BC, SELFPAY | PROVIDERS: PCP Nurse Practitioner Family; Referring Provider Nurse Practitioner Family; Visit Provider Specialist | DX: M17.12 Unilateral primary osteoarthritis, left knee (principal) | CPT/HCPCS: 73560; 73565 ==

== ENCOUNTER 2021-03-20 20:35 | Emergency (ER) | payer BC, SELFPAY ==
[2021-03-20 20:42] VITALS: BP 162/97; PULSE 88; RESP 18; TEMP 36.2; O2SAT 99; BMI 59.1
--- NOTE | 2021-03-20 20:55 | ECG_ITS ---
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 Measurements Intervals [place] Rate: 79 P: [place]: QRS: 57 QRSD: 90 T: 35 QT: 378 QTc: 433 Interpretive Statements ATRIAL FIBRILLATION LOW QRS VOLTAGE IN PRECORDIAL LEADS [QRS DEFLECTION < 1.0 mV IN CHEST LEADS] Compared to ECG 09/20/2020 19:26:07 Low QRS voltage now present Electronically Signed On 03-21-2021 18:34:06 CDT by Jesús Melendez M.D. [id number]
--- NOTE | 2021-03-20 21:27 | XRR_ITS ---
PROCEDURE INFORMATION: Exam: XR Chest Exam date and time: 03/20/2021 9:27 PM Age: 50 years old Clinical indication: Chest wall pain; Patient HX: Dizzy; Additional info: Cough TECHNIQUE: Imaging protocol: XR of the chest. Views: 1 view. COMPARISON: CR XR knees AP WB w LT lmt ORTH 12/27/2020 11:51 AM FINDINGS: Lungs: Hypoinflated lungs. No discrete focal consolidation. Pleural spaces: Unremarkable. No pleural effusion. No pneumothorax. Heart/Mediastinum: Similar mild cardiomegaly. Bones/joints: Unremarkable. XR/XR chest 1V portable [id number] IMPRESSION: Stable exam, no acute findings.
--- NOTE | 2021-03-20 21:28 | W.ED.ARRPALP ---
HPI - Arrhythmia/Palpitations General: Chief Complaint: Arrhythmia/Palpitations Stated Complaint: CP, DIZZY Time Seen by Provider: 03/20/21 21:20 History of Present Illness: HPI narrative: This patient is a 50-year-old female who presents to the emergency department with complaint of epigastric/substernal chest pain that is sharp in nature. Patient also states that she has been having issues with her blood pressure. Patient has been keeping a blood pressure log of the blood pressures been ranging anywhere from 110 systolic to 140 systolic. Patient is on 3 different medications for the same. Blood pressures do not appreciate appear to be any significant abnormality. Deonte patient is grossly morbidly obese. Patient is followed by a local cardiology. Will do medical evaluation treat as needed. Patient denies cough congestion or fever. States she has a long history of atrial fib. complaint: irregular heart beat and atrial fibrillation Onset (ago): day(s) Duration: intermittent Severity: similar to previous episodes Associated symptoms: Reports no associated symptoms; Deny anxiety, nausea or vomiting Review of Systems General: Reports: 10 or more systems reviewed and unremarkable except in HPI and below Const: Denies: fever(s), chills, body aches or fatigue Eyes: Denies: change in vision or blurry vision ENMT: Denies: throat pain, hoarseness or mouth pain Card: Reports: chest pain; Denies: palpitations, irregular heart rhythm, edema, swelling of feet/ankles or lightheadedness Resp: Denies: dyspnea, productive cough, non-productive cough, wheezing or pain on inspiration GI: Denies: abdominal pain, nausea or vomiting : Denies: flank pain, difficulty voiding, dysuria, urinary frequency, urinary urgency or urinary hesitancy Musc: Denies: neck pain, back pain, extremity pain, extremity swelling, joint pain, joint swelling, joint redness, joint warmth or limited range of motion Skin/Breast: Denies: rash, pruritus, erythema or skin tenderness Neuro: Denies: headache(s), numbness in extremities or weakness in extremities Psych: Denies: anxiety or depression PFS ED PFSH: Medical History Aortic stenosis Asthma HTN (hypertension) Hypothyroidism Nonadherence to medication Obesity Post hysterectomy menopause Surgical History H/O hysterectomy with oophorectomy History of cholecystectomy Family History Mother CAD (coronary artery disease) Clotting disorder Social History Smoking and tobacco status: never smoked Alcohol intake: current Alcohol intake frequency: holidays/special occasions only Physical Exam Const: COMMON NORMALS: no acute distress, average body habitus, patient oriented x3, no limitations, healthy appearing, alert and well nourished HENMT: COMMON NORMALS: normocephalic, atraumatic, hearing grossly normal bilaterally, external ears normal, EAC's normal, TM's normal bilaterally, Normal external nose present, Normal nasal mucous membranes and turbinates present, moist oral mucous membranes, oropharynx normal, dentition normal and gingiva normal HEAD & SCALP: normocephalic and atraumatic NOSE: Normal external nose present and Normal nasal mucous membranes and turbinates present EXTERNAL EAR: Yes external ears normal EXTERNAL AUDITORY CANAL: EAC's normal TYMPANIC MEMBRANE: TM's normal bilaterally Neck/C-Spine: COMMON NORMALS: full ROM, no lymphadenopathy, supple, no meningeal signs, no JVD, Thyroid normal and No carotid bruits THYROID: Thyroid normal Chest: COMMONS NORMALS: normal inspection of the chest, normal palpation of entire chest wall, normal inspection of the breasts and normal palpation of the breasts Breast/axilla inspection: Yes normal inspection of the breasts BREAST/AXILLA PALPATION: Yes normal palpation of the breasts Resp: COMMON NORMALS: normal respiratory effort, No retractions, No use of accessory muscles, clear to auscultation bilaterally and percussion normal AUSCULTATION: clear to auscultation bilaterally PERCUSSION: percussion normal Cardio: COMMON NORMALS: no JVD, regular rate, regular rhythm, S1 normal heart sound present, S2 normal heart sound present, No gallops present (Cardio), No clicks present (Cardio), No murmurs present (Cardio), No rub (Cardio) and Peripheral pulses 2+ throughout RATE: regular rate RHYTHM: regular rhythm HEART SOUNDS: S1 normal heart sound present and S2 normal heart sound present PERIPHERAL PULSES: Peripheral pulses 2+ throughout GI: COMMON NORMALS: Normal to inspection, nondistended, normoactive bowel sounds present, Soft to palpation, non-tender, No hepatosplenomegaly present, no masses and no bruits PALPATION: Yes Soft to palpation and Yes No hepatosplenomegaly present Back/Pelvis: COMMON NORMALS: thoracic and lumbar spine normal to inspection, no thoracic nor lumbar tenderness, thoraco-lumbar ROM normal and straight leg raise negative bilaterally Extremity: COMMON NORMALS: normal to inspection, full ROM, capillary refill normal, no joint enlargement, no clubbing, cyanosis or edema, no calf tenderness and no pedal edema Neuro: COMMON NORMALS: patient oriented x3 SENSORIUM/ORIENTATION: Yes alert MENINGEAL SIGNS: Yes no meningeal signs Course Reevaluation(s): Reevaluation #1: Negative evaluation in the emergency department for any acute findings. Laboratory values stable. Patient does have a urinary tract infection. Patient given antibiotics for the same. Patient is to continue all home medications and follow-up with PCP in 2 to 3 days. Time: 23:55 Vital Signs: Vital signs: Vital Signs Temperature 97.2 F L 03/20/21 20:42 Pulse Rate 80 03/20/21 22:30 Respiratory Rate 17 03/20/21 22:30 Blood Pressure 149/81 03/20/21 22:30 Pulse Oximetry 100 03/20/21 22:30 MDM - Arrhythmia/Palpitations MDM Narrative: Medical decision making narrative: This patient is a 50-year-old female who presents to the emergency department with complaint of epigastric/substernal chest pain that is sharp in nature. Patient also states that she has been having issues with her blood pressure. Patient has been keeping a blood pressure log of the blood pressures been ranging anywhere from 110 systolic to 140 systolic. Patient is on 3 different medications for the same. Blood pressures do not appreciate appear to be any significant abnormality. Deonte patient is grossly morbidly obese. Patient is followed by a local cardiology. Will do medical evaluation treat as needed. Patient denies cough congestion or fever. States she has a long history of atrial fib. Medical Records: Attestation: I reviewed the patient's medical records. Lab Data: Attestation: I reviewed the patient's lab results. Labs: Lab Results 03/20/21 03/20/21 03/20/21 Range/Units 21:40 21:55 22:13 WBC 6.9 (4.0-10.0) 10^3/ uL RBC 4.12 (4.1-5.3) 10^6/u L Hgb 12.3 (11.5-15.3) g/dL Hct 40.8 (37.0-47.0) % MCV 99.0 (81-99) fL MCH 29.9 (28.0-34.0) pg MCHC 30.1 (30.0-36.0) g/dL RDW 14.6 (12.1-15.1) % Plt Count 154 (130-400) 10^3/c mm MPV 10.7 H (7.4-10.4) fL Neut % (Auto) 69.1 % Lymph % (Auto) 22.6 % Freestone % (Auto) 6.4 % Eos % (Auto) 1.3 % Baso % (Auto) 0.3 % Neut # (Auto) 4.73 (1.8-7.7) 10^3/u L Lymph # (Auto) 1.6 (0.8-4.8) 10^3/u L [place] # (Auto) 0.4 (0.2-0.9) 10^3/u L Eos # (Auto) 0.1 (0.0-0.8) 10^3/u L Baso # (Auto) 0.0 (0.0-0.1) 10^3/u L Nucleated RBC % (a uto) 0 % Nucleated RBCs # 0.0 /100WBC PT 16.90 H (12.1-14.9) SECO NDS INR 1.33 H (0.8-1.2) APTT 33.2 (23.9-36.7) SECO NDS D-Dimer 0.84 H (0-0.59) ug/mIFE U Sodium (136-145) mmol/L Potassium (3.5-5.1) mmol/L Chloride (98-107) mmol/L Carbon Dioxide (22-29) mmol/L Anion Gap (5-19) BUN (6-20) mg/dL Creatinine (0.5-0.9) mg/dL GFR Calculation (90-130) mL/min Glucose (65-115) mg/dL Calculated Osmolal ity (285-295) mOsm/k g Calcium (8.5-10.5) mg/dL Total Bilirubin (0.15-1.2) mg/dL AST (0-32) U/L ALT (0-33) U/L Alkaline Phosphata se (35-105) IU/L Troponin T Baselin e (0-10) ng/L NT-Pro-B Natriuret Pep (0-125) pg/mL Total Protein (6.6-8.7) g/dL Albumin (3.5-5.2) g/dL Globulin (1.3-4.6) g/dL Urine Color Yellow (Yellow) Urine Appearance Hazy A (CLEAR) Urine pH 5 (5-7) Ur Specific Gravit y 1.020 (1.005-1.030) Urine Protein Neg (Negative) Urine Glucose (UA) Norm (Normal) Urine Ketones Negative (Negative) Urine Blood Neg (Negative) Urine Nitrate Positive H (Negative) Urine Bilirubin Neg (Negative) Urine Urobilinogen Norm (Negative) mg/dL Ur Leukocyte Zuleyma ase Trace H (Negative) Urine RBC 0-4 H (0-2) /hpf Urine WBC 40-55 H (0-5) /hpf Ur Squamous Epith Cells 15-25 H (0-5) /hpf Amorphous Sediment Not Reportable Urine Bacteria 4+ H (NONE) /hpf 03/20/21 03/20/21 Range/Units 22:13 22:13 WBC (4.0-10.0) 10^3/ uL RBC (4.1-5.3) 10^6/u L Hgb (11.5-15.3) g/dL Hct (37.0-47.0) % MCV (81-99) fL MCH (28.0-34.0) pg MCHC (30.0-36.0) g/dL RDW (12.1-15.1) % Plt Count (130-400) 10^3/c mm MPV (7.4-10.4) fL Neut % (Auto) % Lymph % (Auto) % Freestone % (Auto) % Eos % (Auto) % Baso % (Auto) % Neut # (Auto) (1.8-7.7) 10^3/u L Lymph # (Auto) (0.8-4.8) 10^3/u L [place] # (Auto) (0.2-0.9) 10^3/u L Eos # (Auto) (0.0-0.8) 10^3/u L Baso # (Auto) (0.0-0.1) 10^3/u L Nucleated RBC % (a uto) % Nucleated RBCs # /100WBC PT (12.1-14.9) SECO NDS INR (0.8-1.2) APTT (23.9-36.7) SECO NDS D-Dimer (0-0.59) ug/mIFE U Sodium 140 (136-145) mmol/L Potassium 4.3 (3.5-5.1) mmol/L Chloride 108 H (98-107) mmol/L Carbon Dioxide 20 L (22-29) mmol/L Anion Gap 16.3 (5-19) BUN 23 H (6-20) mg/dL Creatinine 0.8 (0.5-0.9) mg/dL GFR Calculation 75.3 L (90-130) mL/min Glucose 96 (65-115) mg/dL Calculated Osmolal ity 294 (285-295) mOsm/k g Calcium 8.7 (8.5-10.5) mg/dL Total Bilirubin 0.6 (0.15-1.2) mg/dL AST 20 (0-32) U/L ALT 16 (0-33) U/L Alkaline Phosphata se 104 (35-105) IU/L Troponin T Baselin e 7 (0-10) ng/L NT-Pro-B Natriuret Pep 932 H (0-125) pg/mL Total Protein 6.5 L (6.6-8.7) g/dL Albumin 3.6 (3.5-5.2) g/dL Globulin 2.9 (1.3-4.6) g/dL Urine Color (Yellow) Urine Appearance (CLEAR) Urine pH (5-7) Ur Specific Gravit y (1.005-1.030) Urine Protein (Negative) Urine Glucose (UA) (Normal) Urine Ketones (Negative) Urine Blood (Negative) Urine Nitrate (Negative) Urine Bilirubin (Negative) Urine Urobilinogen (Negative) mg/dL Ur Leukocyte Zuleyma ase (Negative) Urine RBC (0-2) /hpf Urine WBC (0-5) /hpf Ur Squamous Epith Cells (0-5) /hpf Amorphous Sediment Urine Bacteria (NONE) /hpf Imaging Data^: CXR: Attestation: I personally reviewed and interpreted this imaging study as follows: Radiologist's impression: FINDINGS: Lungs: Hypoinflated lungs. No discrete focal consolidation. Pleural spaces: Unremarkable. No pleural effusion. No pneumothorax. Heart/Mediastinum: Similar mild cardiomegaly. Bones/joints: Unremarkable. XR/XR chest 1V portable [id number] IMPRESSION: Stable exam, no acute findings. EKG Data^: EKG 1: Attestation: I personally reviewed and interpreted this EKG as follows: EKG interpretation date: 03/20/21 EKG interpretation time: 20:59 Prior EKG tracings: not available for review Interpretation: Atrial fibrillation heart rate 79 nonspecific EKG chronic A. fib Other EKG comments: Chest X-Ray 03/20/21 21:27 IMPRESSION: Stable exam, no acute findings. EKG 2: Attestation: I personally reviewed and interpreted this EKG as follows: EKG interpretation date: 03/20/21 EKG interpretation time: 23:38 Prior EKG tracings: not available for review Computer generated interpretation: Atrial fibrillation heart rate 80 nonspecific EKG chronic A. fib. Other EKG comments: Chest X-Ray 03/20/21 21:27 IMPRESSION: Stable exam, no acute findings. Discharge Plan Discharge Patient Disposition: Home Clinical Impression: Chronic a-fib, Morbid obesity with BMI of 60.0-69.9, adult, UTI (urinary tract infection), HTN (hypertension) Condition: Stable Prescriptions: New cephalexin 500 mg capsule 500 mg PO BID 7 Days Qty: 14 RF: 0 No Action multivitamin Tablet 1 tab PO DAILY RF: 0 losartan 100 mg tablet 100 mg PO DAILY Qty: 90 RF: 3 Eliquis 5 mg tablet 5 mg PO BID Qty: 180 RF: 3 carvedilol 25 mg tablet 25 mg PO Q12H Qty: 180 RF: 3 diltiazem HCl 120 mg capsule,extended release 24hr 120 mg PO DAILY Qty: 90 RF: 3 furosemide 20 mg tablet 20 mg PO DAILY Qty: 90 RF: 3 celecoxib 100 mg capsule 100 mg PO DAILY RF: 0 Discharge Orders: Discharge ED (Routine); Ordered 03/20/21 Ordered By: Jonathon Lopez Referrals: Melissa Abbasi FNP [Primary Care Provider] - Discharge Diet: Advance as tolerated Discharge Activity: Resume usual activity Patient Instructions: Opioid Safety Activity Restrictions/Additional Instructions: Negative evaluation in the emergency department for any acute findings. Laboratory values stable. Patient does have a urinary tract infection. Patient given antibiotics for the same. Patient is to continue all home medications and follow-up with PCP in 2 to 3 days. Coding Level of Care Code ED Complaints Coordinator for Chg Fwd Exam Comprehensive
[2021-03-20 21:35] VITALS: BP 159/96; PULSE 90; RESP 18; O2SAT 100
[2021-03-20 22:00] VITALS: BP 156/91; PULSE 85; RESP 20; O2SAT 100
[2021-03-20 22:04] LABS: Basophils % 0.3 %; Eosinophils # 0.1 10^3/uL (0.0-0.8); Eosinophils % 1.3 %; Hematocrit 40.8 % (37.0-47.0); Hemoglobin 12.3 g/dL (11.5-15.3); Lymphocytes # 1.6 10^3/uL (0.8-4.8); Lymphocytes % 22.6 %; Mean Corpuscular HGB Conc 30.1 g/dL (30.0-36.0); Mean Corpuscular Hemoglobin 29.9 pg (28.0-34.0); Mean Platelet Volume 10.7 fL (7.4-10.4); Monocytes # 0.4 10^3/uL (0.2-0.9); Monocytes % 6.4 %; Neutrophils # 4.73 10^3/uL (1.8-7.7); Neutrophils % 69.1 %; Nucleated Red Blood Cells % 0 %; Platelet Count 154 10^3/cmm (130-400); Red Blood Count 4.12 10^6/uL (4.1-5.3); Red Cell Distribution Width 14.6 % (12.1-15.1); White Blood Count 6.9 10^3/uL (4.0-10.0)
[2021-03-20] MEDS: nitroglycerin 0.4 mg sublingual Tablet SUBLINGUAL (22:07)
[2021-03-20 22:30] VITALS: BP 149/81; PULSE 80; RESP 17; O2SAT 100
[2021-03-20 22:34] LABS: Bilirubin Urine Neg (Negative); Blood Urine Neg (Negative); Glucose Urine UA Norm (Normal); Ketones Urine Negative (Negative); Nitrate Urine Positive (Negative); Protein Urine Neg (Negative); Urine Appearance Hazy (CLEAR); Urine Color Yellow (Yellow); Urobilinogen Urine Norm (Negative); pH Urine 5 (5-7)
[2021-03-20 22:35] LABS: Leukocyte Esterase Urine Trace (Negative)
[2021-03-20 22:36] LABS: Add Urine Culture? No; Add Urine Microscopic? YES; Bacteria Urine 4+ /hpf; RBC Urine 0-4 /hpf (0-2); Squamous Epithelial Cell Urine 15-25 /hpf (0-5); WBC Urine 40-55 /hpf (0-5)
[2021-03-20 22:44] LABS: D Dimer 0.84 ug/mIFEU (0-0.59); INR 1.33 (0.8-1.2); Partial Thromboplastin Time 33.2 SECONDS (23.9-36.7)
[2021-03-20 22:51] LABS: Alanine Aminotransferase 16 U/L (0-33); Albumin Level 3.6 g/dL (3.5-5.2); Alkaline Phosphatase 104 IU/L (35-105); Anion Gap 16.3 (5-19); Blood Urea Nitrogen 23 mg/dL (6-20); Calcium 8.7 mg/dL (8.5-10.5); Carbon Dioxide 20 mmol/L (22-29); Chloride 108 mmol/L (98-107); Globulin 2.9 g/dL (1.3-4.6); Glomerular Filtration Rate 75.3 mL/min (90-130); Glucose 96 mg/dL (65-115); NT Pro B Type Natriuretic Pept 932 pg/mL (0-125); Osmolality Calculated 294 mOsm/kg (285-295); Potassium 4.3 mmol/L (3.5-5.1); Sodium 140 mmol/L (136-145); Total Bilirubin 0.6 mg/dL (0.15-1.2); Total Protein 6.5 g/dL (6.6-8.7)
[2021-03-20 22:52] LABS: Aspartate Amino Transferase 20 U/L (0-32); Troponin(5th) Baseline 7 ng/L (0-10)
[2021-03-20] MEDS: cefTRIAXone 1,000 MG in sodium chloride 0.9% (plus) 100 ML 100 MG IV (23:00)
--- NOTE | 2021-03-20 23:27 | ECG_ITS ---
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 Measurements Intervals [place] Rate: 80 P: [place]: QRS: 66 QRSD: 97 T: 49 QT: 376 QTc: 435 Interpretive Statements ATRIAL FIBRILLATION LOW QRS VOLTAGE IN PRECORDIAL LEADS [QRS DEFLECTION < 1.0 mV IN CHEST LEADS] ABNORMAL RHYTHM ECG Compared to ECG 03/20/2021 20:59:42 No significant changes Electronically Signed On 03-21-2021 18:36:53 CDT by Jesús Melendez M.D. [id number]
[2021-03-21 00:01] LABS: Troponin 5 2HR 6.11 ng/L (0-10)
[2021-03-21 00:07] LABS: Troponin 5 2HR Delta -0.89 ABS# (0-10)
[2021-03-21 00:09] VITALS: BP 134/89; PULSE 88; RESP 18; TEMP 36.2; O2SAT 99
== END 2021-03-21 00:13 | disposition home or self-care (01) ==
PROVIDERS: Emergency Provider Emergency Medicine; PCP Nurse Practitioner Family
DX: I48.20 Chronic atrial fibrillation, unspecified (principal); N39.0 Urinary tract infection, site not specified; I10 Essential (primary) hypertension; Z68.43 Body mass index [BMI] 50.0-59.9, adult; E66.01 Morbid (severe) obesity due to excess calories; J45.909 Unspecified asthma, uncomplicated; E03.9 Hypothyroidism, unspecified; Z68.44 Body mass index [BMI] 60.0-69.9, adult; Z79.01 Long term (current) use of anticoagulants
CPT/HCPCS: 36415; 71045; 80053; 81001; 83880; 84484; 85025; 85378; 85610; 85730; 93005; 96365; 99284; J0696

== ENCOUNTER 2021-05-04 10:51 | Emergency (ER) | payer BC, SELFPAY ==
--- NOTE | 2021-05-04 11:24 | XR_ITS ---
WS: [id number] Portable AP upright chest, 05/04/2021 Clinical Data: chest pain Comparison: Portable chest, 03/20/2021 Findings: No nodules, masses or effusions are seen. The heart is enlarged. Pulmonary vascularity is n ot increased. No pneumonia or pneumothorax is seen. The aortic arch and descending aorta show tortuos ity. XR/XR chest 1V portable [id number] Impression: Atherosclerosis and cardiomegaly
--- NOTE | 2021-05-04 11:24 | ECG_ITS ---
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 : 1970 Requested By: Piper Fry Order Number: [id number] Reading MD: ANANTH CALDERON Measurements Intervals [place] Rate: 71 P: CT: QRS: 89 QRSD: 92 T: 5 QT: 399 QTc: 436 Interpretive Statements ATRIAL FIBRILLATION LOW QRS VOLTAGE IN EXTREMITY LEADS [QRS DEFLECTION < 0.5 mV IN LIMB LEADS] POSSIBLE ANTERIOR MYOCARDIAL INFARCTION [30 ms Q WAVE IN V3/V4, OR R < 0.2 mV IN V4], PROBABLY OLD ABNORMAL RHYTHM ECG Compared to ECG 03/20/2021 23:38:15 Myocardial infarct finding now present Electronically Signed On 05-05-2021 20:16:42 CDT by ANANTH CALDERON [id number] f
[2021-05-04 11:37] VITALS: BP 153/106; PULSE 71; RESP 65; TEMP 36.7; O2SAT 95; BMI 43.2
--- NOTE | 2021-05-04 13:24 | ECG_ITS ---
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1970 Requested By: Piper Fry Order Number: [id number] Reading MD: ANANTH CALDERON Measurements Intervals [place] Rate: 77 P: [place]: QRS: 68 QRSD: 88 T: 57 QT: 387 QTc: 439 Interpretive Statements ATRIAL FIBRILLATION LOW QRS VOLTAGE [QRS DEFLECTION < 0.5/1.0 mV IN LIMB/CHEST LEADS] MINIMAL ST DEPRESSION [0.025+ mV ST DEPRESSION] Compared to ECG 05/04/2021 11:43:31 ST (T wave) deviation now present Myocardial infarct finding no longer present Electronically Signed On 05-05-2021 20:18:49 CDT by ANANTH CALDERON [id number]
--- NOTE | 2021-05-04 14:43 | ED_ITS ---
HPI - Chest Pain General: Chief Complaint: Chest Pain Stated Complaint: cp, dizziness Time Seen by Provider: 05/04/21 14:43 History of Present Illness: HPI narrative: Ms. Aaron Machado is a 50-year-old lady with significant past medical history of obesity, atrial fibrillation on anticoagulation, hypertension, hyperlipidemia, and valvular heart failure presents emergency department due to chest discomfort and dizzy sensation. Symptom onset regarding the dizziness was approximately 1 month ago. She was seen and evaluated and diagnosed with urinary tract infection. She has since had recurrence of symptoms after improvement and was started on Macrobid after initial course of Keflex. She completed antibiotics 4 days ago however symptoms acutely resumed. She describes a spinning off-balance sensation that is occasionally worse by movement however at times wakes her up at night. Additionally she has atypical feature of facial swelling. She denies new allergic symptoms or any specific provoking factor to this. Overall the intensity of symptoms varies however is severe when present. No reported history of vertigo. No other specific changes in health, exacerbating, or relieving factors identified. Review of Systems General: Reports: 10 or more systems reviewed and unremarkable except in HPI and below Narrative: CONSTITUTIONAL: denies fever, fatigue, weakness EYES - denies pain, denies loss of vision EARS - denies ear issues. NOSE - denies congestion or rhinorrhea. THROAT - denies sore throat or difficulty swallowing. CARDIOVASCULAR - see hpi RESPIRATORY - denies shortness of breath and cough GASTROINTESTINAL - denies abdominal pain, no nausea vomiting, no changes in bowel habits GENITOURINARY - denies dysuria or urinary frequency MUSCULOSKELETAL- denies deformity or pain SKIN - denies rashes or new changed skin lesions NEUROLOGIC - see hpi HEMATOLOGIC/LYMPHATIC - denies easy bruising or lymphadenopathy. PFSH ED PFSH: Medical History Aortic stenosis Asthma HTN (hypertension) Hypothyroidism Nonadherence to medication Obesity Post hysterectomy menopause Surgical History H/O hysterectomy with oophorectomy History of cholecystectomy Family History Mother CAD (coronary artery disease) Clotting disorder Social History Smoking and tobacco status: never smoked Alcohol intake: current Alcohol intake frequency: holidays/special occasions only Physical Exam Narrative: EXAM NARRATIVE: GENERAL/CONSTITUTIONAL - well-appearing. No acute distress. obese Eyes - PERRL, no conjunctival injection ENMT - Atraumatic external nose and ears. Moist mucous membranes NECK - supple. trachea midline CARDIOVASCULAR - regular rate and rhythm. Peripheral pulses 2+ and equal RESPIRATORY -clear to auscultation bilaterally. No retractions or accessory muscle use. ABDOMEN/GI - Nontender/Nondistended. No tenderness to percussion or evidence of peritonitis MSK - Extremities without obvious deformity or tenderness to palpation SKIN - Warm, Dry NEURO - unsteady when symptoms present. CN2-12 intact. No appreciable nystagmus though patient endorses worsening of symptoms with EOM testing. PSYCH - Appropriate mood and affect Course ED course: - Monitor, IV access, and vital signs obtained. - The patient was seen and evaluated by me at bedside - Initial evaluation was notable for no acute distress, nontoxic appearance. n eurological exam not definitely for central or peripheral cause of dizziness. Additionally no obvious cause for reported facial plethora which is no present on exam. - IV fluids, symptom control ordered - Labs notable for no acute abnormality to explain symptoms - Imaging notable for no acute abnormality to explain symptoms - Repeat eval still with symptoms, additional treatment ordered with impro vement/near complete resolution - The most likely cause for the patient's symptoms is likely peripheral cause of dizziness. - The results of ED evaluation were discussed with the patient including the need for follow up with PCP. Return precautions, follow up plan, and prescriptions/symptom cares (including responsible and appropriate use) were discussed with the patient as applicable. The patient verbalized understanding and felt safe for discharge. - Upon serial reexamation the patient's condition was improved. They were discharged without incident or clinical deterioration. Vital Signs: Vital signs: Vital Signs Temperature 97.7 F 05/04/21 18:24 Pulse Rate 78 05/04/21 18:24 Respiratory Rate 16 05/04/21 18:24 Blood Pressure 149/93 05/04/21 18:24 Pulse Oximetry 96 05/04/21 18:24 MDM - Chest Pain Medical Records: Attestation: I reviewed the patient's medical records. Lab Data: Attestation: I reviewed the patient's lab results. Labs: Lab Results 05/04/21 05/04/21 05/04/21 Range/Units 15:02 15:02 15:02 WBC 4.5 (4.0-10.0) 10^3/ uL RBC 4.04 L (4.1-5.3) 10^6/u L Hgb 12.2 (11.5-15.3) g/dL Hct 40.4 (37.0-47.0) % MCV 100.0 H (81-99) fl MCH 30.2 (28.0-34.0) pg MCHC 30.2 (30.0-36.0) g/dL RDW 14.6 (12.1-15.1) % Plt Count 141 (130-400) 10^3/c mm MPV 11.0 H (7.4-10.4) fL Neut % (Auto) 61.6 % Lymph % (Auto) 28.9 % Jackson % (Auto) 8.2 % Eos % (Auto) 1.1 % Baso % (Auto) 0.2 % Neut # (Auto) 2.77 (1.8-7.7) 10^3/u L Lymph # (Auto) 1.3 (0.8-4.8) 10^3/u L Jackson # (Auto) 0.4 (0.2-0.9) 10^3/u L Eos # (Auto) 0.1 (0.0-0.8) 10^3/u L Baso # (Auto) 0.0 (0.0-0.1) 10^3/u L Nucleated RBC % (a uto) 0 % Nucleated RBCs # 0.0 /100WBC Sodium 139 (136-145) mmol/L Potassium 4.6 (3.5-5.1) mmol/L Chloride 104 (98-107) mmol/L Carbon Dioxide 28 (22-29) mmol/L Anion Gap 11.6 (5-19) BUN 12 (6-20) mg/dL Creatinine 0.7 (0.5-0.9) mg/dL GFR Calculation 87.9 L (90-130) mL/min Glucose 89 (65-115) mg/dL Calculated Osmolal ity 287 (285-295) mOsm/k g Calcium 9.0 (8.5-10.5) mg/dL Total Bilirubin 0.9 (0.15-1.2) mg/dL AST 23 (0-32) U/L ALT 18 (0-33) U/L Alkaline Phosphata se 117 H (35-105) IU/L Troponin T Baselin e 9 (0-10) ng/L Troponin T 120 Min [place] (0-10) ng/L Delta Troponin T (0-10) ABS# NT-Pro-B Natriuret Pep 746 H (0-125) pg/mL Total Protein 6.4 L (6.6-8.7) g/dL Albumin 4.0 (3.5-5.2) g/dL Globulin 2.4 (1.3-4.6) g/dL Urine Color (Yellow) Urine Appearance (CLEAR) Urine pH (5-7) Ur Specific Gravit y (1.005-1.030) Urine Protein (Negative) Urine Glucose (UA) (Normal) Urine Ketones (Negative) Urine Blood (Negative) Urine Nitrate (Negative) Urine Bilirubin (Negative) Urine Urobilinogen (Negative) mg/dL Ur Leukocyte Zuleyma ase (Negative) 05/04/21 05/04/21 Range/Units 15:02 16:20 WBC (4.0-10.0) 10^3/ uL RBC (4.1-5.3) 10^6/u L Hgb (11.5-15.3) g/dL Hct (37.0-47.0) % MCV (81-99) fl MCH (28.0-34.0) pg MCHC (30.0-36.0) g/dL RDW (12.1-15.1) % Plt Count (130-400) 10^3/c mm MPV (7.4-10.4) fL Neut % (Auto) % Lymph % (Auto) % Jackson % (Auto) % Eos % (Auto) % Baso % (Auto) % Neut # (Auto) (1.8-7.7) 10^3/u L Lymph # (Auto) (0.8-4.8) 10^3/u L Jackson # (Auto) (0.2-0.9) 10^3/u L Eos # (Auto) (0.0-0.8) 10^3/u L Baso # (Auto) (0.0-0.1) 10^3/u L Nucleated RBC % (a uto) % Nucleated RBCs # /100WBC Sodium (136-145) mmol/L Potassium (3.5-5.1) mmol/L Chloride (98-107) mmol/L Carbon Dioxide (22-29) mmol/L Anion Gap (5-19) BUN (6-20) mg/dL Creatinine (0.5-0.9) mg/dL GFR Calculation (90-130) mL/min Glucose (65-115) mg/dL Calculated Osmolal ity (285-295) mOsm/k g Calcium (8.5-10.5) mg/dL Total Bilirubin (0.15-1.2) mg/dL AST (0-32) U/L ALT (0-33) U/L Alkaline Phosphata se (35-105) IU/L Troponin T Baselin e (0-10) ng/L Troponin T 120 Min [place] 8.92 (0-10) ng/L Delta Troponin T -0.08 L (0-10) ABS# NT-Pro-B Natriuret Pep (0-125) pg/mL Total Protein (6.6-8.7) g/dL Albumin (3.5-5.2) g/dL Globulin (1.3-4.6) g/dL Urine Color Yellow (Yellow) Urine Appearance Clear (CLEAR) Urine pH 7 (5-7) Ur Specific Gravit y 1.010 (1.005-1.030) Urine Protein Neg (Negative) Urine Glucose (UA) Norm (Normal) Urine Ketones Negative (Negative) Urine Blood Neg (Negative) Urine Nitrate Negative (Negative) Urine Bilirubin Neg (Negative) Urine Urobilinogen Norm (Negative) mg/dL Ur Leukocyte Zuleyma ase Negative (Negative) EKG Data^: EKG 1: Attestation: I personally reviewed and interpreted this EKG as follows: EKG interpretation date: 05/04/21 EKG interpretation time: 11:45 Prior EKG tracings: available for review Interpretation: 12 lead shows irregular rhythm at rate of 71 QRS 92, QTc 436 Unclear axis due to QRS voltage Interp: afib, similar to prior EKG 2: Attestation: I personally reviewed and interpreted this EKG as follows: EKG interpretation date: 05/04/21 EKG interpretation time: 16:27 Interpretation: 12 lead shows irregular rhythm at rate of 77 normal axis Interp: afib, similar to prior Discharge Plan Discharge Patient Disposition: Home Clinical Impression: Dizziness Condition: Stable Prescriptions: New Reglan 10 mg tablet 10 mg PO Q8H PRN (Reason: nausea and vomiting) Qty: 10 RF: 0 Benadryl 25 mg capsule 25 mg PO Q8H PRN (Reason: motion sickness) Qty: 10 RF: 0 No Action multivitamin Tablet 1 tab PO DAILY RF: 0 losartan 100 mg tablet 100 mg PO DAILY Qty: 90 RF: 3 Eliquis 5 mg tablet 5 mg PO BID Qty: 180 RF: 3 carvedilol 25 mg tablet 25 mg PO Q12H Qty: 180 RF: 3 diltiazem HCl 120 mg capsule,extended release 24hr 120 mg PO DAILY Qty: 90 RF: 3 furosemide 20 mg tablet 20 mg PO DAILY Qty: 90 RF: 3 celecoxib 100 mg capsule 100 mg PO DAILY RF: 0 Discharge Orders: Discharge ED (Routine); Ordered 05/04/21 Ordered By: Michael Zamora Referrals: Melissa Abbasi FNP [Primary Care Provider] - Discharge Diet: Usual diet Discharge Activity: Resume usual activity Patient Instructions: Vertigo (ED), Dizziness (ED) Activity Restrictions/Additional Instructions: Thank you for visiting the emergency department. You were seen and evaluated for dizziness and chest discomfort, the exact cause of your symptoms is unclear though however is likely related to dysfunction of the inner ear. You will be given prescriptions to help with the symptoms. Please follow-up with your primary care provider. Please follow-up with physical therapy for vestibular therapy. Please return to the emergency department for anything that you are concerned about and feel needs emergency department evaluation. Stand Alone Forms: Work/School Release Coding Level of Care Code ED Dray Truck Driver for Marisa Herrera
--- NOTE | 2021-05-04 14:43 | PC.NURSE ---
Assumed care of this patient at this time.
[2021-05-04 14:46] VITALS: BP 136/89; PULSE 66; RESP 22; TEMP 36.5; O2SAT 99
--- NOTE | 2021-05-04 15:00 | CTR_ITS ---
PROCEDURE INFORMATION: Exam: CT Angiography Head With Contrast, Arteriography Exam date and time: 05/04/2021 3:00 PM Age: 50 years old Clinical indication: Dizziness and giddiness; Patient HX: C/O dizziness and R periorbital swelling; Additional info: Dizziness, facial swelling, concern for vascular cause of SX TECHNIQUE: Imaging protocol: Computed tomography angiography of the head with contrast. Exam focused on the arteries. 3D rendering (Not supervised by radiologist): MIP and/or 3D reconstructed images were created by the technologist. Radiation optimization: All CT scans at this facility use at least one of these dose optimization techniques: automated exposure control; mA and/or kV adjustment per patient size (includes targeted exams where dose is matched to clinical indication); or iterative reconstruction. Contrast material: OMNI 350; Contrast volume: 95 ml; Contrast route: INTRAVENOUS (IV); COMPARISON: CR XR knees AP WB w LT lmt ORTH 12/27/2020 11:51 AM RADIATION DOSE METRICS: Total DLP (mGy-cm): 3082.13 FINDINGS: ANTERIOR CIRCULATION: Right internal carotid artery: Unremarkable. Intracranial segment is patent with no significant stenosis. No aneurysm. Right middle cerebral artery: Unremarkable. No occlusion or significant stenosis. No aneurysm. Right anterior cerebral artery: Unremarkable. No occlusion or significant stenosis. No aneurysm. Left internal carotid artery: Unremarkable. Intracranial segment is patent with no significant stenosis. No aneurysm. Left middle cerebral artery: Unremarkable. No occlusion or significant stenosis. No aneurysm. Left anterior cerebral artery: Unremarkable. No occlusion or significant stenosis. No aneurysm. POSTERIOR CIRCULATION: Right vertebral artery: Unremarkable. No occlusion or significant stenosis. No aneurysm. Left vertebral artery: Unremarkable. No occlusion or significant stenosis. No aneurysm. Basilar artery: Unremarkable. No occlusion or significant stenosis. No aneurysm. Right posterior cerebral artery: origin of the right posterior cerebral artery. Left posterior cerebral artery: Unremarkable. No occlusion or significant stenosis. No aneurysm. IMPRESSION: No stenosis or occlusion of the intracranial arteries. PROCEDURE INFORMATION: Exam: CT Angiography Neck With Contrast Exam date and time: 05/04/2021 3:00 PM Age: 50 years old Clinical indication: Dizziness and giddiness; Patient HX: C/O dizziness and R periorbital swelling; Additional info: Dizziness, facial swelling, concern for vascular cause of SX TECHNIQUE: Imaging protocol: Computed tomography angiography of the neck with contrast. 3D rendering (Not supervised by radiologist): MIP and/or 3D reconstructed images were created by the technologist. Radiation optimization: All CT scans at this facility use at least one of these dose optimization techniques: automated exposure control; mA and/or kV adjustment per patient size (includes targeted exams where dose is matched to clinical indication); or iterative reconstruction. Contrast material: OMNI 350; Contrast volume: 95 ml; Contrast route: INTRAVENOUS (IV); COMPARISON: CR XR knees AP WB w LT lmt ORTH 12/27/2020 11:51 AM RADIATION DOSE METRICS: Total DLP (mGy-cm): 3082.13 FINDINGS: Right common carotid artery: No stenosis. No dissection or occlusion. Right internal carotid artery: No stenosis of the extracranial segment. No dissection or occlusion. Right external carotid artery: No occlusion or stenosis of the origin. Left common carotid artery: No stenosis. No dissection or occlusion. Left internal carotid artery: No stenosis of the extracranial segment. No dissection or occlusion. Left external carotid artery: No occlusion or stenosis of the origin. Right vertebral artery: No stenosis. No dissection or occlusion. Left vertebral artery: No stenosis. No dissection or occlusion. Soft tissues: Normal. No significant soft tissue swelling. Bones/joints: No acute fracture. CT/CT angio headneck* [id number] IMPRESSION: No stenosis or occlusion. REFERENCES: NASCET CRITERIA. The degree of internal carotid artery stenosis is based on NASCET criteria. Normal is no stenosis. Mild is less than 50% stenosis. Moderate is 50-69% stenosis. Severe is 70% to 99% stenosis. Total occlusion is no detectable patent lumen. Radiation Dose CTDIVOL = (mGy): DLP = 3082.13~3082.13 (mGy-cm)
[2021-05-04] MEDS: lactated ringers 500 ML 999 ML IV (15:16)
[2021-05-04] MEDS: meclizine 25 mg tablet PO (15:16)
[2021-05-04 15:17] LABS: Basophils % 0.2 %; Eosinophils # 0.1 10^3/uL (0.0-0.8); Eosinophils % 1.1 %; Hematocrit 40.4 % (37.0-47.0); Hemoglobin 12.2 g/dL (11.5-15.3); Lymphocytes # 1.3 10^3/uL (0.8-4.8); Lymphocytes % 28.9 %; Mean Corpuscular HGB Conc 30.2 g/dL (30.0-36.0); Mean Corpuscular Hemoglobin 30.2 pg (28.0-34.0); Monocytes # 0.4 10^3/uL (0.2-0.9); Monocytes % 8.2 %; Neutrophils # 2.77 10^3/uL (1.8-7.7); Neutrophils % 61.6 %; Nucleated Red Blood Cells % 0 %; Platelet Count 141 10^3/cmm (130-400); Red Blood Count 4.04 10^6/uL (4.1-5.3); Red Cell Distribution Width 14.6 % (12.1-15.1); White Blood Count 4.5 10^3/uL (4.0-10.0)
[2021-05-04 15:39] LABS: Troponin(5th) Baseline 9 ng/L (0-10)
[2021-05-04] MEDS: iohexol 350 mg/mL 100 mL Btl IV (15:44)
[2021-05-04 15:48] LABS: Alanine Aminotransferase 18 U/L (0-33); Alkaline Phosphatase 117 IU/L (35-105); Anion Gap 11.6 (5-19); Aspartate Amino Transferase 23 U/L (0-32); Blood Urea Nitrogen 12 mg/dL (6-20); Carbon Dioxide 28 mmol/L (22-29); Chloride 104 mmol/L (98-107); Globulin 2.4 g/dL (1.3-4.6); Glomerular Filtration Rate 87.9 mL/min (90-130); Glucose 89 mg/dL (65-115); NT Pro B Type Natriuretic Pept 746 pg/mL (0-125); Osmolality Calculated 287 mOsm/kg (285-295); Potassium 4.6 mmol/L (3.5-5.1); Sodium 139 mmol/L (136-145); Total Bilirubin 0.9 mg/dL (0.15-1.2); Total Protein 6.4 g/dL (6.6-8.7)
[2021-05-04 16:34] LABS: Add Urine Microscopic? NO; Charge for UA Resulting for Rev
[2021-05-04 16:44] LABS: Urine Appearance Clear (CLEAR); Urine Color Yellow (Yellow)
[2021-05-04 16:45] LABS: Bilirubin Urine Neg (Negative); Blood Urine Neg (Negative); Glucose Urine UA Norm (Normal); Ketones Urine Negative (Negative); Leukocyte Esterase Urine Negative (Negative); Nitrate Urine Negative (Negative); Protein Urine Neg (Negative); Urobilinogen Urine Norm (Negative); pH Urine 7 (5-7)
[2021-05-04 17:05] LABS: Troponin 5 2HR 8.92 ng/L (0-10)
[2021-05-04 17:08] LABS: Troponin 5 2HR Delta -0.08 ABS# (0-10)
[2021-05-04 17:09] VITALS: BP 149/69; PULSE 80; RESP 18; TEMP 36.4; O2SAT 99
[2021-05-04] MEDS: diphenhydrAMINE 50 mg/mL SDV 1mL 25 MG IVP (17:15)
[2021-05-04] MEDS: metoclopramide 5 mg/mL SDV 2 mL 10 MG IVP (17:19)
[2021-05-04 18:24] VITALS: BP 149/93; PULSE 78; RESP 16; TEMP 36.5; O2SAT 96
== END 2021-05-04 18:32 | disposition home or self-care (01) ==
PROVIDERS: Physician Assistant; Emergency Provider Emergency Medicine; PCP Nurse Practitioner Family
DX: R42 Dizziness and giddiness (principal); Z79.01 Long term (current) use of anticoagulants; I10 Essential (primary) hypertension
CPT/HCPCS: 70496; 70498; 71045; 80053; 81003; 83880; 84484; 85025; 93005; 96374; 96375; 99284; J1200; J2765; J8597; Q9967

== ENCOUNTER 2021-06-03 13:08 | Emergency (ER) | payer BC, SELFPAY ==
--- NOTE | 2021-06-03 13:27 | XRR_ITS ---
PROCEDURE INFORMATION: Exam: XR Right Hip Exam date and time: 06/03/2021 1:27 PM Age: 50 years old Clinical indication: Injury or trauma; Fall; Blunt trauma (contusions or hematomas); Right; Hip; Additional info: Fall into car, PT weights 430lbs TECHNIQUE: Imaging protocol: XR Right hip. Views: 1 view hip with pelvis when performed. Total images: 3 COMPARISON: No relevant prior studies available. FINDINGS: Bones/joints: Unremarkable. No acute fracture. No visible significant degenerative disease. Soft tissues: Unremarkable. Other findings: Marked morbid obesity. XR/XR hip RT 2-3V wo/w pel* [id number] IMPRESSION: Nonacute.
[2021-06-03 13:28] VITALS: BP 123/75; PULSE 75; RESP 18; TEMP 35.6; O2SAT 97; BMI 71.5
--- NOTE | 2021-06-03 15:49 | W.ED.GENADLT ---
HPI - General Adult General: Chief complaint: General Medical Stated complaint: Injury to Rght Hip when lft leg gave way Time Seen by Provider: 06/03/21 15:49 History of Present Illness: HPI narrative: Ms. Aaron Machado is a 50-year-old lady with significant past medical history of morbid obesity, CHF, A. fib on anticoagulation who presents emergency department due to fall with pain. She was trying to get into her car when her left leg gave out. She primarily landed on the right side and immediately had pain. No head strike or loss of consciousness. She was able to get up however felt weakness and extreme pain in her right leg and hip. She tried resting however had pain that limited strength. No new numbness or tingling. She is titrating medications for fluid retention. Overall the course of symptoms is worse with movement and moderate to severe intensity, sharp and aching quality. Worse with movement. Review of Systems General: Reports: 10 or more systems reviewed and unremarkable except in HPI and below PFSH ED PFSH: Medical History Aortic stenosis Asthma HTN (hypertension) Hypothyroidism Nonadherence to medication Obesity Post hysterectomy menopause Surgical History H/O hysterectomy with oophorectomy History of cholecystectomy Family History Mother CAD (coronary artery disease) Clotting disorder Social History Smoking and tobacco status: never smoked Alcohol intake: current Alcohol intake frequency: holidays/special occasions only Physical Exam Narrative: EXAM NARRATIVE: GENERAL/CONSTITUTIONAL - well-appearing. Discomfort due to pain. Obese Eyes - PERRL, no conjunctival injection ENMT - Atraumatic external nose and ears. Moist mucous membranes NECK - supple. trachea midline CARDIOVASCULAR - regular rate and rhythm. Peripheral pulses 2+ and equal RESPIRATORY -clear to auscultation bilaterally. No retractions or accessory muscle use. ABDOMEN/GI - Nontender/Nondistended. No tenderness to percussion or evidence of peritonitis MSK - tenderness palpation of hip. Tenderness with range of motion. SKIN - Warm, Dry NEURO - alert and appropriately oriented. strength and sensation intact. Moves all extremities equally. PSYCH - Appropriate mood and affect Course ED course: - Patient was seen and evaluated by me at bedside - Patient placed on cardiac monitors, IV access obtained - Initial evaluation notable for discomfort due to pain, nontoxic. - Given questionable reason of leg giving way and current titration of diuretics labs are warranted - Labs notable for no acute abnormality - Imaging notable for no acute abnormality - Upon serial reexamination after treatment the patient was improved with analgesia - Based on patient history, evaluation, labs, and imaging as interpreted the most likely cause of the patient's condition is contusion related to fall - The results of ED evaluation were discussed with the patient including prescriptions and/or symptomatic cares (if applicable) including appropriate and responsible use, followup plan, and return precautions. The patient verbalized understanding and felt safe for discharge. - Patient discharged in satisfactory condition. Vital Signs: Vital signs: Vital Signs Temperature 96.0 F L 06/03/21 13:28 Pulse Rate 68 06/03/21 18:49 Respiratory Rate 15 06/03/21 18:49 Blood Pressure 123/75 06/03/21 13:28 Pulse Oximetry 98 06/03/21 18:49 MDM - General Adult Medical Records: Attestation: I reviewed the patient's medical records. Lab Data: Attestation: I reviewed the patient's lab results. Labs: Lab Results 06/03/21 17:02 Sodium 141 mmol/L mmol/L (136-145) Potassium 4.3 mmol/L mmol/L (3.5-5.1) Chloride 104 mmol/L mmol/L (98-107) Carbon Dioxide 27 mmol/L mmol/L (22-29) Anion Gap 14.3 (5-19) BUN 23 mg/dL H mg/dL (6-20) Creatinine 0.7 mg/dL mg/dL (0.5-0.9) GFR Calculation 87.9 mL/min L mL/ min (90-130) Glucose 80 mg/dL mg/dL (65-115) Calculated Osmolal ity 295 mOsm/kg mOsm/ kg (285-295) Calcium 9.8 mg/dL mg/dL (8.5-10.5) Discharge Plan Discharge Patient Disposition: Home Clinical Impression: Fall, Acute hip pain Condition: Stable Prescriptions: New oxycodone 5 mg tablet 5 mg PO Q4H PRN (Reason: pain) Qty: 10 RF: 0 No Action multivitamin Tablet 1 tab PO DAILY RF: 0 losartan 100 mg tablet 100 mg PO DAILY Qty: 90 RF: 3 Eliquis 5 mg tablet 5 mg PO BID Qty: 180 RF: 3 carvedilol 25 mg tablet 25 mg PO Q12H Qty: 180 RF: 3 diltiazem HCl 120 mg capsule,extended release 24hr 120 mg PO DAILY Qty: 90 RF: 3 furosemide 20 mg tablet 20 mg PO DAILY Qty: 90 RF: 3 Reglan 10 mg tablet 10 mg PO Q8H PRN (Reason: nausea and vomiting) Qty: 10 RF: 0 Benadryl 25 mg capsule 25 mg PO Q8H PRN (Reason: motion sickness) Qty: 10 RF: 0 celecoxib 100 mg capsule 100 mg PO DAILY RF: 0 Discharge Orders: Discharge ED (Routine); Ordered 06/03/21 Ordered By: Michael Zamora Referrals: Elroy,Melissa, AUTOMATIC ENGRAVER [Primary Care Provider] - Discharge Diet: Usual diet Discharge Activity: Increase activity as tolerated Patient Instructions: Fall Prevention (ED), Hip Pain (ED), Opioid Safety Activity Restrictions/Additional Instructions: Thank you for visiting the emergency department. You were seen and evaluated for a fall with hip pain. X-rays did not reveal any fracture. The likely cause of your pain is related to soft tissue injury. You may use Tylenol and ibuprofen as long as you have not been told to avoid those in the past. You well be given a prescription for oxycodone. Do not combine this with other sedating medications. I recommend taking a stool softener with this as it can make you constipated. Do not drive while under the influence of oxycodone. Please return to the emergency department for worsening of symptoms or anything else that you are concerned about and feel needs emergency department evaluation. Coding Level of Care Code ED Marketing Intern for Marisa Herrera
[2021-06-03 16:54] VITALS: RESP 18
[2021-06-03] MEDS: morphine 4 mg/mL SDV 1 mL IM (16:54)
[2021-06-03 17:48] LABS: Anion Gap 14.3 (5-19); Blood Urea Nitrogen 23 mg/dL (6-20); Calcium 9.8 mg/dL (8.5-10.5); Carbon Dioxide 27 mmol/L (22-29); Chloride 104 mmol/L (98-107); Glomerular Filtration Rate 87.9 mL/min (90-130); Glucose 80 mg/dL (65-115); Osmolality Calculated 295 mOsm/kg (285-295); Potassium 4.3 mmol/L (3.5-5.1); Sodium 141 mmol/L (136-145)
[2021-06-03 18:33] VITALS: PULSE 68; RESP 15; O2SAT 98
[2021-06-03 18:49] VITALS: PULSE 68; RESP 15; O2SAT 98
== END 2021-06-03 18:57 | disposition home or self-care (01) ==
PROVIDERS: Emergency Provider Emergency Medicine; PCP Nurse Practitioner Family
DX: M25.551 Pain in right hip (principal); Z79.01 Long term (current) use of anticoagulants; I10 Essential (primary) hypertension
CPT/HCPCS: 73502; 80048; 96372; 99283; J2270

== ENCOUNTER → 2021-06-27 16:47 | Outpatient (BNVA) | payer BC, SELFPAY | PROVIDERS: PCP Nurse Practitioner Family; Visit Provider Internal Medicine Cardiovascular Disease | DX: I48.91 Unspecified atrial fibrillation (principal); I50.9 Heart failure, unspecified | CPT/HCPCS: 80048 ==

== ENCOUNTER 2021-06-30 08:59 | Inpatient (IN) | payer BC, SELFPAY ==
[2021-06-30] VITALS (7 sets, daily range): BP systolic 97–148; BP diastolic 66–94; PULSE 64–83; RESP 17–20; TEMP 36.4–36.9; O2SAT 94–99; BMI 76.3
--- NOTE | 2021-06-30 09:20 | PC.NURSE ---
Pt states that she needs to go to the bathroom and is unable to hold it for an EKG.
--- NOTE | 2021-06-30 09:39 | XRR_ITS ---
PROCEDURE INFORMATION: Exam: XR Chest Exam date and time: 06/30/2021 9:39 AM Age: 50 years old Clinical indication: Dyspnea TECHNIQUE: Imaging protocol: XR of the chest. Views: 1 view. Total images: 1 COMPARISON: CR XR chest 1V portable [id number] 05/04/2021 11:32 AM FINDINGS: Lungs: No acute focal pulmonary opacities are detected. Pleural spaces: Unremarkable. No pleural effusion. No pneumothorax. Heart/Mediastinum: Heart is enlarged but stable when compared to the prior exam. Bones/joints: Osseous structures are unchanged from the prior exam. XR/XR chest 1V portable [id number] IMPRESSION: 1. Heart is enlarged but stable when compared to the prior exam. 2. No acute focal pulmonary opacities are detected. Radiation Dose CTDIVOL = (mGy): DLP = (mGy-cm)
--- NOTE | 2021-06-30 09:39 | ECG_ITS ---
[facility] Test Date: 2021-06-30 Pat Name: Venus Machado Department: Room: Gender: Female Director Fundraising: : 1970 Requested By: Bradly Adams Order Number: [id number] Reading MD: ANANTH CALDERON Measurements Intervals [place] Rate: 67 P: [place]: QRS: 64 QRSD: 97 T: 43 QT: 426 QTc: 450 Interpretive Statements ATRIAL FIBRILLATION ABNORMAL RHYTHM ECG Compared to ECG 05/04/2021 16:19:31 ST (T wave) deviation no longer present Electronically Signed On 07-02-2021 0:13:39 CDT by ANANTH CALDERON [email or web address]
--- NOTE | 2021-06-30 09:41 | W.ED.GENADLT ---
HPI - General Adult General: Chief complaint: Chest Pain Stated complaint: CHEST PAIN, FLUID RETENTION, SENT FROM [facility] Time Seen by Provider: 06/30/21 09:05 History of Present Illness: HPI narrative: CC: Dyspnea HPI: This is a [50] yo patient w/ hx of diastolic HF followed by Dr. Lai on spirolactine, lasix, and metalozine presenting to the ED with dyspnea and increased work of breathing x 1 month in the setting of increased weight gain and lower extremity swelling. Patient report gaining >50 lbs over the last 3 months despite new medicine. Endorses of orthopnea and increased pillow usage at night. 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 Lai. Denies chest pain, N/V, diaphoresis, shoulder pain pain or back pain. Patient has no fever/chill, or sputum production. No GI or other complaints. Denies any pleuritic chest pain, recent surgery/immobilization/travel, or hematemesis or hx of VTE in the past. Onset: 1 month ago Duration: ongoing for the last 30 days Location: home Severity: mild/moderate Review of Systems Narrative: Constitutional: No fever, no chills. HEENT: No vision changes CV: No chest pain, no palpitations PULM: No productive cough, +dyspnea GI: No abdominal pain, no N/V/D. : No dysuria MSKEL: No muscle pain, leg swelling SKIN: No new rashes, no lesions. NEURO: No headache, no focal weakness. HEME: No visible bruises PSYCH: Normal mood PFSH ED PFSH: Medical History Aortic stenosis Asthma HTN (hypertension) Hypothyroidism Nonadherence to medication Obesity Post hysterectomy menopause Surgical History H/O hysterectomy with oophorectomy History of cholecystectomy Family History Mother CAD (coronary artery disease) Clotting disorder Social History Smoking and tobacco status: never smoked Alcohol intake: current Alcohol intake frequency: holidays/special occasions only Physical Exam Narrative: EXAM NARRATIVE: Head: Atraumatic Eyes: PERRL, conjunctiva without injection ENT: Mucous membrane moist NECK: Supple without lymphadenopathy, mild JVD LUNGS: Increased work of breathing, +diffuse crackles bilaterally. CV: RRR ABDOMEN: Soft, nontender in all quadrants EXTREMITY: Normal ROM, bilateral 2+ edema in the LE, no gera?s sign SKIN: No rash or erythema NEURO: Awake and alert. No focal motor deficits. PSYCH: Normal mood and affect. Course Vital Signs: Vital signs: Vital Signs Temperature 97.6 F 06/30/21 09:41 Pulse Rate 65 06/30/21 10:54 Respiratory Rate 18 06/30/21 10:54 Blood Pressure 138/79 06/30/21 10:54 Pulse Oximetry 98 06/30/21 10:54 MDM - General Adult MDM Narrative: Medical decision making narrative: [50]yo pt w/ hx of diastolic HF presenting to the ED with dyspnea and increased work of breathing concerning acute on chronic CHF exacerbation. Physical exam consistent signs of fluid overload including crackles bilaterally and LE swelling. Workup today: ECG, CBC, BMP, Troponin, BNP, CXR. Intervention: IV lasix after potassium check Based on history, exam and findings, presentation most consistent with acute on chronic heart failure. Low suspicion for PNA, ACS, tamponade, aortic dissection. EKG: No STEMI and no evidence of Brugada?s sign, delta wave, epsilon wave, significantly prolonged QTc, or malignant arrhythmia. Troponin mildly elevated at 14 and BNP of 1K CXR: cardiomegaly [10:30pm] On reassessment, patient is stable and patient is mentating without issues. Given lasix 80mg x 1 in the ER with significant symptom improvement in dyspnea. No signs of increased work of breathing requiring BIPAP. Net UOP pending. Given the current presentation, I believe the patient would benefit from inpatient admission for continued diuresis and fluid removal. I have discussed a plan with a patient who agrees with inpatient admission. Disposition: Admission Lab Data: Labs: Lab Results 06/30/21 06/30/21 06/30/21 09:58 09:58 09:58 WBC 3.9 10^3/uL L 10^ 3/uL (4.0-10.0) RBC 3.77 10^6/uL L 10 ^6/uL (4.1-5.3) Hgb 11.6 g/dL g/dL (11.5-15.3) Hct 37.1 % % (37.0-47.0) MCV 98.4 fl fl (81-99) MCH 30.8 pg pg (28.0-34.0) MCHC 31.3 g/dL g/dL (30.0-36.0) RDW 14.5 % % (12.1-15.1) Plt Count 130 10^3/cmm 10^3 /cmm (130-400) MPV 10.7 fL H fL (7.4-10.4) Neut % (Auto) 59.8 % % Lymph % (Auto) 29.7 % % [place] % (Auto) 8.4 % % Eos % (Auto) 1.8 % % Baso % (Auto) 0.3 % % Neut # (Auto) 2.34 10^3/uL 10^3 /uL (1.8-7.7) Lymph # (Auto) 1.2 10^3/uL 10^3/ uL (0.8-4.8) [place] # (Auto) 0.3 10^3/uL 10^3/ uL (0.2-0.9) Eos # (Auto) 0.1 10^3/uL 10^3/ uL (0.0-0.8) Baso # (Auto) 0.0 10^3/uL 10^3/ uL (0.0-0.1) Nucleated RBC % (a uto) 0 % % Nucleated RBCs # 0.0 /100WBC /100W BC Sodium 137 mmol/L mmol/L (136-145) Potassium 4.6 mmol/L mmol/L (3.5-5.1) Chloride 101 mmol/L mmol/L (98-107) Carbon Dioxide 27 mmol/L mmol/L (22-29) Anion Gap 13.6 (5-19) BUN 21 mg/dL H mg/dL (6-20) Creatinine 0.8 mg/dL mg/dL (0.5-0.9) GFR Calculation 75.3 mL/min L mL/ min (90-130) Glucose 91 mg/dL mg/dL (65-115) Calculated Osmolal ity 287 mOsm/kg mOsm/ kg (285-295) Calcium 9.7 mg/dL mg/dL (8.5-10.5) Troponin T Baselin e 14 ng/L H ng/L (0-10) NT-Pro-B Natriuret Pep 1003 pg/mL H pg/m L (0-125) Imaging Data^: Other Imaging: Radiologist's impression: [facility] [place], [place] [address]XPhc ReportSigned Patient: Jason Haddad #: [id number]: [id number]#:[id number]/Sex: 50 / FADM Date: 06/30/21Loc: ERRoom/Bed:Attending Dr: Ordering Provider/Ordering MD: Bradly Adams MD Date of Service: 06/30/21 Procedure(s): XR chest 1V portable [id number] Accession Number(s): [id number] Report Number: [id number] PROCEDURE INFORMATION: Exam: XR Chest Exam date and time: 06/30/2021 9:39 AM Age: 50 years old Clinical indication: Dyspnea TECHNIQUE: Imaging protocol: XR of the chest. Views: 1 view. Total images: 1 COMPARISON: CR XR chest 1V portable [id number] 05/04/2021 11:32 AM FINDINGS: Lungs: No acute focal pulmonary opacities are detected. Pleural spaces: Unremarkable. No pleural effusion. No pneumothorax. Heart/Mediastinum: Heart is enlarged but stable when compared to the prior exam. Bones/joints: Osseous structures are unchanged from the prior exam. XR/XR chest 1V portable [id number] IMPRESSION: 1. Heart is enlarged but stable when compared to the prior exam. 2. No acute focal pulmonary opacities are detected. Radiation Dose CTDIVOL = (mGy): DLP = (mGy-cm) Dictated By:Sulaiman Mendez MDSigned By:Sulaiman Mendez MDSigned Date/Time:06/30/21 1100DD/ 0939 Discharge Plan Discharge Patient Disposition: Admitted As Inpatient Clinical Impression: Fluid retention, CHF exacerbation Condition: Stable Coding Level of Care Code ED Classroom Coordinator for Marisa Herrera
[2021-06-30 10:15] LABS: Basophils % 0.3 %; Eosinophils # 0.1 10^3/uL (0.0-0.8); Eosinophils % 1.8 %; Hematocrit 37.1 % (37.0-47.0); Hemoglobin 11.6 g/dL (11.5-15.3); Lymphocytes # 1.2 10^3/uL (0.8-4.8); Lymphocytes % 29.7 %; Mean Corpuscular HGB Conc 31.3 g/dL (30.0-36.0); Mean Corpuscular Hemoglobin 30.8 pg (28.0-34.0); Mean Corpuscular Volume 98.4 fl (81-99); Mean Platelet Volume 10.7 fL (7.4-10.4); Monocytes # 0.3 10^3/uL (0.2-0.9); Monocytes % 8.4 %; Neutrophils # 2.34 10^3/uL (1.8-7.7); Neutrophils % 59.8 %; Nucleated Red Blood Cells % 0 %; Platelet Count 130 10^3/cmm (130-400); Red Blood Count 3.77 10^6/uL (4.1-5.3); Red Cell Distribution Width 14.5 % (12.1-15.1); White Blood Count 3.9 10^3/uL (4.0-10.0)
[2021-06-30] MEDS: aspirin 325 mg Tablet PO (10:17)
[2021-06-30] MEDS: FUROsemide 10 mg/mL SDV 10mL 80 MG IVP ×2 (10:17→22:30)
[2021-06-30 10:35] LABS: Troponin(5th) Baseline 14 ng/L (0-10)
[2021-06-30 10:38] LABS: Blood Urea Nitrogen 21 mg/dL (6-20); Calcium 9.7 mg/dL (8.5-10.5); Carbon Dioxide 27 mmol/L (22-29); Chloride 101 mmol/L (98-107); Glomerular Filtration Rate 75.3 mL/min (90-130); Glucose 91 mg/dL (65-115); Osmolality Calculated 287 mOsm/kg (285-295); Sodium 137 mmol/L (136-145)
[2021-06-30 10:43] LABS: Anion Gap 13.6 (5-19); Potassium 4.6 mmol/L (3.5-5.1)
[2021-06-30 11:24] LABS: NT Pro B Type Natriuretic Pept 1003 pg/mL (0-125)
--- NOTE | 2021-06-30 11:39 | ECG_ITS ---
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: : 1970 Requested By: Bradly Adams Order Number: [id number] Reading MD: ANANTH CALDERON Measurements Intervals [place] Rate: 72 P: [place]: QRS: 35 QRSD: 96 T: 27 QT: 401 QTc: 441 Interpretive Statements ATRIAL FIBRILLATION WITH ABERRANT CONDUCTION OR VENTRICULAR PREMATURE COMPLEXES POSSIBLE ANTERIOR MYOCARDIAL INFARCTION , PROBABLY OLD [30 ms Q WAVE IN V3/V4, OR R < 0.2 mV IN V4] ABNORMAL RHYTHM ECG Compared to ECG 06/30/2021 09:36:17 Ventricular premature complex(es) now present Aberrant conduction of supraventricular beat(s) now present Myocardial infarct finding now present Electronically Signed On 07-02-2021 0:19:22 CDT by ANANTH CALDERON [id number]
--- NOTE | 2021-06-30 12:31 | PC.NURSE ---
tried to call report to med surg, nurse to call me back.
[2021-06-30 12:58] LABS: Troponin 5 2HR 13.62 ng/L (0-10)
[2021-06-30 13:03] LABS: Troponin 5 2HR Delta -0.38 ABS# (0-10)
--- NOTE | 2021-06-30 13:05 | PC.NURSE ---
tried to call report. nurse still busy.
--- NOTE | 2021-06-30 13:48 | PM.CONSULT ---
Providers/Reason For Consult Consulting Physician/Specialty*: Cardiology Reason for Consult*: Heart failure decompensated diastolic requiring IV diuresis Attending Physician: Du Sandesr Primary Care Provider: MADISYN Bolden History of Present Illness History of Present Illness Venus Machado is a 50 year old female past medical history significant for obesity, chronic atrial fibrillation, diastolic heart failure, nonischemic cardiomyopathy without significant coronary artery disease proven with left heart cath saw me in my office few days ago she was noted to have volume overload he was 15 pound overweight with questionable compliance, as an outpatient we will try to optimize her medicine by increasing diuretics and adding metolazone she continues to do worse with bilateral lower extremity edema with weeping legs increasing abdominal girth and not to the extent she could not breathe or lay flat. It is the reason she came to the ER. She is being admitted for IV diuresis. Currently denies any chest pain palpitation or racing heart rate. Heart rate is under control in general. He denies fever chills nausea vomiting. She denies any Covid-like symptoms. Review of Systems Narrative: Constitutional: No fever, no chills. HEENT: No vision changes CV: No chest pain, no palpitations PULM: No productive cough, +dyspnea GI: No abdominal pain, no N/V/D. : No dysuria MSKEL: No muscle pain, leg swelling SKIN: No new rashes, no lesions. NEURO: No headache, no focal weakness. HEME: No visible bruises PSYCH: Normal mood Musc: Denies: joint warmth Meds/Allergies Home Medications and Allergies Home Medications Medication Instructions Recorded Confirmed Last Taken Type apixaban 5 mg tablet 5 mg PO BID #180 tab 12/28/20 06/30/21 06/30/21 Rx carvedilol 25 mg tablet 25 mg PO Q12H #180 tab 12/28/20 06/30/21 06/30/21 Rx diltiazem HCl 120 mg 120 mg PO DAILY #90 cap 12/28/20 06/30/21 06/30/21 Rx capsule,extended release 24 hr losartan 100 mg tablet 100 mg PO DAILY #90 tab 12/28/20 06/30/21 06/30/21 Rx multivitamin 1 tab PO DAILY 12/28/20 06/30/21 06/30/21 History celecoxib 100 mg PO DAILY 03/20/21 06/30/21 06/30/21 History diphenhydramine HCl [Benadryl] 25 mg PO Q8H PRN #10 cap 05/04/21 06/30/21 Unknown Rx metoclopramide HCl [Reglan] 10 mg PO Q8H PRN #10 tab 05/04/21 06/30/21 Unknown Rx spironolactone 25 mg tablet 25 mg PO DAILY #90 tab 06/22/21 06/30/21 06/30/21 Rx Lactobacillus acidophilus 500 500 mmu cells PO BID cap 06/27/21 06/30/21 06/30/21 History million cell capsule amoxicillin 875 mg-potassium 1 tab PO BID 06/27/21 06/30/21 06/30/21 History clavulanate 125 mg tablet metolazone 2.5 mg tablet 2.5 mg PO BID #60 tab 06/27/21 06/30/21 06/30/21 Rx mupirocin 2 % topical ointment 1 applic TOPICAL BID 06/27/21 06/30/21 Unknown History potassium chloride 10 mEq 20 meq PO BID #120 tab 06/27/21 06/30/21 06/30/21 Rx tablet,extended release diphenhydramine HCl [Benadryl 25 mg PO TID PRN 06/30/21 06/30/21 Unknown History Allergy] furosemide 80 mg PO DAILY 06/30/21 06/30/21 06/30/21 History Allergies Allergy/AdvReac Type Severity Reaction Status Date / Time No Known Allergies Allergy Verified 05/04/21 11:49 PFSH Acute PFSH: Medical History (Updated 06/30/21 @ 16:30 by Marcela Lai MD) Aortic stenosis Asthma Atrial fibrillation, chronic Cardiomyopathy Diastolic heart failure HTN (hypertension) Hypothyroidism Nonadherence to medication Obesity Post hysterectomy menopause Surgical History H/O hysterectomy with oophorectomy History of cholecystectomy Family History Mother CAD (coronary artery disease) Clotting disorder Social History Smoking and tobacco status: never smoked Alcohol intake: current Alcohol intake frequency: holidays/special occasions only Dietary Habits: Current diet type/program: regular Vitals/I&O/Wt Last Vital Signs Temp 97.6 F 06/30/21 09:41 Pulse 65 06/30/21 10:54 Resp 18 06/30/21 10:54 BP 138/79 06/30/21 10:54 Pulse Ox 98 06/30/21 10:54 06/29/21 06/30/21 06/30/21 22:59 06:59 14:59 Output Total 900 / 900 Balance -900 / -900 Weight last 48 hrs Weight 445 lb Physical Exam Narrative: EXAM NARRATIVE: GENERAL: Patient is alert, awake and oriented x3. NECK: No jugular vein distension. HEENT: No cyanosis. No icterus. No pallor. HEART: Regular S1 and S2. No murmur, rub or gallop. LUNGS: Clear to auscultate bilaterally. ABDOMEN: Firm, nontender and nondistended. Positive bowel sounds. No guarding, rebound or tenderness. Increased abdominal girth with abdominal wall edema CENTRAL NERVOUS SYSTEM: Grossly nonfocal. EXTREMITIES: Lower extremities with 2+ edema bilaterally. Lower extremity has weeping skin A&P Assessment and plan (1) Diastolic heart failure: Patient has decompensated we will stop oral diuretics including metolazone and Lasix we will switch patient to IV 80 mg twice a day of Lasix. Goal is to diurese 1.5 to 2 L negative every day once euvolemic we will switch her back on the medicines continue rest of the medicine. Status: Acute Qualifiers: Heart failure chronicity: acute on chronic Qualified Code(s): I50.33 - Acute on chronic diastolic (congestive) heart failure (2) Aortic stenosis: Patient has mild aortic stenosis. Could it be contributing to the heart failure at this point does not appear to be the case most likely it is diastolic heart failure continue to monitor Status: Acute Qualifiers: Cardiac valve disease etiology: nonrheumatic Qualified Code(s): I35.0 - Nonrheumatic aortic (valve) stenosis (3) Atrial fibrillation, chronic: Patient is rate controlled continue current regimen if she continues to be in heart failure we may can consider restarting sinus rhythm to improve the heart failure Status: Acute Consult Attestations Medical Necessity Statement: Patient require continuation hospitalization and admission I am expecting her stay to cross more than 2 midnights for heart failure treatment Coding Level of Care Code New Pt Acute Envelope Press Operator for Jeng Fwmilka Patient Type New History Detailed Exam Detailed Medical Decision Making Moderate Complexity Diagnoses Diastolic heart failure I50.33 Heart failure chronicity: acute on chronic Aortic stenosis I35.0 Cardiac valve disease etiology: nonrheumatic Atrial fibrillation, chronic I48.20
--- NOTE | 2021-06-30 15:39 | ECG_ITS ---
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: : 1970 Requested By: Bradly Adams Order Number: [id number] Reading MD: ANANTH CALDERON Measurements Intervals [place] Rate: 77 P: [place]: QRS: 78 QRSD: 102 T: 22 QT: 395 QTc: 448 Interpretive Statements ATRIAL FIBRILLATION POSSIBLE ANTERIOR MYOCARDIAL INFARCTION , PROBABLY OLD [30 ms Q WAVE IN V3/V4, OR R < 0.2 mV IN V4] ABNORMAL RHYTHM ECG Compared to ECG 06/30/2021 12:15:50 Ventricular premature complex(es) no longer present Aberrant conduction of supraventricular beat(s) no longer present Myocardial infarct finding still present Electronically Signed On 07-02-2021 0:17:46 CDT by ANANTH CALDERON [id number]
[2021-06-30 16:51] LABS: Troponin 5 6HR 14.16 ng/L (0-10); Troponin 5 6HR Delta 0.16 ng/L (0-12)
[2021-06-30 17:06] LABS: Glucose Point of Care 69 mg/dL (70-110)
--- NOTE | 2021-06-30 17:17 | PM.HP ---
Providers/Chief Complaint Admitting Physician: Du Sanders Primary Care Provider: Melissa Abbasi, TUBE DRAWING SUPERVISOR Chief Complaint: CHEST PAIN, FLUID RETENTION, SENT FROM [facility] History of Present Illness Pleasant 50-year-old lady with HFpEF, valvular heart disease including moderate aortic stenosis, moderate mitral regurgitation, grade 3 diastolic dysfunction on the most recent echo, morbid obesity, chronic lower extremity edema, worse since the onset of congestive heart failure, asthma, HTN, hypothyroidism, osteoarthritis of the knees for which she takes Celebrex, is admitted due to worsening dyspnea on exertion, orthopnea, lower extremity edema, weight gain reported of over 50 pounds over the last 3 months, without adequate response to her outpatient diuretic, Lasix 80 mg daily. Recently she has also had some redness extending from posterior right calf shallow ulceration and to and around the right foot. She is applying Bactrim soft and is taking Augmentin for this which she had just started. She reports mild chills going down her spine. Denies fever. He is having a headache. Has been having some nausea. Denies diarrhea. Denies cough. Shortness of breath is with exertion and with laying back. Lives at home with her who has not been ill and has been vaccinated for COVID-19. She has not been vaccinated. Review of Systems Const: Denies: fever(s), chills, body aches or malaise Eyes: Denies: change in vision or eye redness ENMT: Denies: throat pain, oral sores or ear or mastoid pain Card: Denies: chest pain, edema, pre-syncope or dyspnea on exertion Resp: Denies: dyspnea, productive cough, change in phlegm color or hemoptysis GI: Denies: abdominal pain, nausea, vomiting, diarrhea, constipation, hematochezia or melena : Denies: flank pain, urinary frequency or hematuria Musc: Denies: back pain, joint swelling or joint redness Skin/Breast: Denies: rash, sores or new lesions Neuro: Denies: headache(s), numbness in extremities, weakness in extremities, dizziness, confusion or seizure-like activity Endo: Denies: polyuria or polydipsia Сергей/Lymph: Denies: easy bleeding or purpura All/Imm: Denies: urticaria, throat swelling or tongue swelling Medications/Allergies Home Medications Medication Instructions Recorded Confirmed Last Taken Type apixaban 5 mg tablet 5 mg PO BID #180 tab 12/28/20 06/30/21 06/30/21 Rx carvedilol 25 mg tablet 25 mg PO Q12H #180 tab 12/28/20 06/30/21 06/30/21 Rx diltiazem HCl 120 mg 120 mg PO DAILY #90 cap 12/28/20 06/30/21 06/30/21 Rx capsule,extended release 24 hr losartan 100 mg tablet 100 mg PO DAILY #90 tab 12/28/20 06/30/21 06/30/21 Rx multivitamin 1 tab PO DAILY 12/28/20 06/30/21 06/30/21 History celecoxib 100 mg PO DAILY 03/20/21 06/30/21 06/30/21 History diphenhydramine HCl [Benadryl] 25 mg PO Q8H PRN #10 cap 05/04/21 06/30/21 Unknown Rx metoclopramide HCl [Reglan] 10 mg PO Q8H PRN #10 tab 05/04/21 06/30/21 Unknown Rx spironolactone 25 mg tablet 25 mg PO DAILY #90 tab 06/22/21 06/30/21 06/30/21 Rx Lactobacillus acidophilus 500 500 mmu cells PO BID cap 06/27/21 06/30/21 06/30/21 History million cell capsule amoxicillin 875 mg-potassium 1 tab PO BID 06/27/21 06/30/21 06/30/21 History clavulanate 125 mg tablet metolazone 2.5 mg tablet 2.5 mg PO BID #60 tab 06/27/21 06/30/21 06/30/21 Rx mupirocin 2 % topical ointment 1 applic TOPICAL BID 06/27/21 06/30/21 Unknown History potassium chloride 10 mEq 20 meq PO BID #120 tab 06/27/21 06/30/21 06/30/21 Rx tablet,extended release diphenhydramine HCl [Benadryl 25 mg PO TID PRN 06/30/21 06/30/21 Unknown History Allergy] furosemide 80 mg PO DAILY 06/30/21 06/30/21 06/30/21 History Allergies Allergy/AdvReac Type Severity Reaction Status Date / Time No Known Allergies Allergy Verified 05/04/21 11:49 PFSH Acute PFSH: Medical History Aortic stenosis Asthma Atrial fibrillation, chronic Cardiomyopathy Diastolic heart failure HTN (hypertension) Hypothyroidism Nonadherence to medication Obesity Post hysterectomy menopause Surgical History H/O hysterectomy with oophorectomy History of cholecystectomy Family History Mother CAD (coronary artery disease) Clotting disorder Social History Smoking and tobacco status: never smoked Alcohol intake: current Alcohol intake frequency: holidays/special occasions only Substance/Drug Use: never Lives independently: Yes Household members: spouse Marital status: Current occupational status: employed 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 Vitals/I&O/Wt Last Vital Signs Temp 98.4 F 06/30/21 14:59 Pulse 64 06/30/21 14:59 Resp 18 06/30/21 14:59 BP 147/85 06/30/21 14:59 Pulse Ox 99 06/30/21 14:59 06/30/21 06/30/21 06/30/21 06:59 14:59 22:59 Output Total 1150 / 1150 Balance -1150 / -1150 Weight last 48 hrs Weight 201.849 kg Weight 201.849 kg Physical Exam Const: COMMON NORMALS: no acute distress, patient oriented x3 and alert GENERAL APPEARANCE: cooperative NUTRITIONAL APPEARANCE: obese morbidly obese ORIENTATION/CONSCIOUSNESS: Yes awake HENMT: COMMON NORMALS: oropharynx normal Neck/C-Spine: COMMON NORMALS: no JVD Resp: COMMON NORMALS: normal respiratory effort AUSCULTATION: crackles Laterality: bilateral (base) Cardio: COMMON NORMALS: no JVD, regular rhythm, S1 normal heart sound present, S2 normal heart sound present and No murmurs present (Cardio) RHYTHM: regular rhythm HEART SOUNDS: S1 normal heart sound present and S2 normal heart sound present GI: COMMON NORMALS: Normal to inspection, nondistended, normoactive bowel sounds present, Soft to palpation and non-tender PALPATION: Yes Soft to palpation Extremity: COMMON NORMALS: no joint enlargement GENERAL: Yes edema (4+ BL edema on very large legs, R>L) Neuro: COMMON NORMALS: patient oriented x3 and moves all extremities Skin: COMMON NORMALS: no rashes or lesions noted RASHES: rashes noted (pale erythema post R calf ext dist around R ankle to entire R foot) WOUNDS: Yes wounds noted (ulcer post R calf, 4 cm, shallow, no underm/tunn, min clear drain) Urinary Catheter Management^: Anglin: Cath Placed During This Visit: yes Urinary Catheter Date of Insertion: 06/30/21 Urinary Catheter Time of Insertion: 15:30 Data : 06/30/21 09:58 06/30/21 09:58 A&P Assessment and plan (1) CHF exacerbation: Acute HFpEF exacerbation. Cardiology recommendations appreciated. Continue diuresis. Monitor ZAKI. Anglin placed for close monitoring of ZAKI. Monitor renal function. Did not respond to outpatient management with oral Lasix 80 mg. Reports weight gain of 50 pounds in 3 months. No orthopnea, dyspnea on exertion. With significant edema, possibly unable to absorb oral medications. Status: Acute (2) Diastolic heart failure: History of grade 3 diastolic dysfunction on echo. Valvular heart disease. Status: Acute Qualifiers: Heart failure chronicity: acute on chronic Qualified Code(s): I50.33 - Acute on chronic diastolic (congestive) heart failure (3) Aortic stenosis: Status: Acute Qualifiers: Cardiac valve disease etiology: nonrheumatic Qualified Code(s): I35.0 - Nonrheumatic aortic (valve) stenosis (4) Atrial fibrillation, chronic: Continue diltiazem, carvedilol, apixaban. Status: Acute (5) Calf ulcer: Collect wound culture. Continue Augmentin, doxycycline. This appears may be venous insufficiency ulceration complicated by cellulitis. Has history of chronic lower extremity edema. Recently exacerbated by her CHF. Discussed with her in addition to treatment of CHF also consideration of graduated compression stockings. Status: Acute (6) Cellulitis of right foot: Augmentin, add doxycycline. Assess venous duplex ultrasound. Status: Acute (7) High risk medications (not anticoagulants) long-term use: Discussed with her increased risk of cardiovascular events, [place], CVA with celecoxib, in addition to other risks including kidney injury, gastritis, hypertension, advised her not to use this medication any further especially in the setting of underlying cardiac disease. Discussed with her primary provider and pain management team. Status: Acute Additional A&P Information Headache, nausea, chills: Check COVID-19 PCR. Some symptoms may be related to her cellulitis as well. Chronic lower extremity edema: Has been suffering from chronic lower extremity edema, but this has been much worse after she developed congestive heart failure. Previously she could elevate her legs and edema will resolve, now it does not really go away. Treatment of CHF as above. 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 Due to the size of her legs she understands she may need a special order graduated compression stockings. Attestations Medical Necessity Statement*: Admission of over 2 midnights is going needed versus management of acute diastolic CHF exacerbation unresponsive to outpatient treatment. Coding Level of Care Code Acute Sizing Machine Operator for Jeng Fwd Diagnoses CHF exacerbation I50.9 Diastolic heart failure I50.33 Heart failure chronicity: acute on chronic Aortic stenosis I35.0 Cardiac valve disease etiology: nonrheumatic Atrial fibrillation, chronic I48.20 Calf ulcer L97.209 Cellulitis of right foot L03.115 High risk medications (not anticoagulants) long-term use Z79.893
[2021-06-30] MEDS: doxycycline 100 mg Tablet PO (17:55)
[2021-06-30] MEDS: amoxicillin-clav 875-125 mg Tablet 1 TAB PO (17:55)
[2021-06-30] MEDS: potassium chloride ER 20 mEq Tablet 40 MEQ PO (17:55)
[2021-06-30] MEDS: acetaminophen 325 mg Tablet 650 MG PO ×2 (17:55→22:30)
[2021-06-30] MEDS: apixaban 5 mg Tablet PO (17:55)
--- NOTE | 2021-06-30 19:16 | PC.NURSE ---
Report to Haven CARMONA at this time.
[2021-06-30] MEDS: mupirocin oint 22 gm 1 APPLIC TOPICAL (20:50)
[2021-06-30] MEDS: carvedilol 25 mg Tablet PO (20:50)
[2021-07-01] VITALS (8 sets, daily range): BP systolic 108–129; BP diastolic 69–87; PULSE 71–89; RESP 16–22; TEMP 36.3–36.9; O2SAT 91–96
--- NOTE | 2021-07-01 06:00 | USR_ITS ---
PROCEDURE INFORMATION: Exam: US Duplex Right Lower Extremity Veins, Limited Exam date and time: 07/01/2021 6:00 AM Age: 50 years old Clinical indication: Swelling (edema) of limb; Lower extremity, right; Additional info: Swelling, redness, assess for dvt TECHNIQUE: Imaging protocol: Real-time Duplex ultrasound of the Right Lower Extremity with 2-D myers scale, color Doppler flow and spectral waveform analysis with image documentation. Limited exam was focused on the right lower extremity veins. COMPARISON: No relevant prior studies available. FINDINGS: Right deep veins: Unremarkable. The common femoral, femoral, proximal profunda femoral and popliteal veins are patent without thrombus. Normal Doppler waveforms. Normal compressibility and/or augmentation response. Right superficial veins: Unremarkable. Saphenofemoral junction is patent without thrombus. Soft tissues: Soft tissue edema noted in the calf region. Lymph nodes: Nonspecific lymph nodes noted in the right groin measuring up to 9 mm in short [place]. US/[place] [id number] IMPRESSION: No acute deep vein thrombosis of the right lower extremity. Soft tissue edema noted in the calf region. Radiation Dose CTDIVOL = (mGy): DLP = (mGy-cm)
[2021-07-01 06:26] LABS: Basophils % 0.2 %; Eosinophils # 0.1 10^3/uL (0.0-0.8); Eosinophils % 1.2 %; Hematocrit 35.5 % (37.0-47.0); Hemoglobin 11.2 g/dL (11.5-15.3); Lymphocytes # 1.3 10^3/uL (0.8-4.8); Mean Corpuscular HGB Conc 31.5 g/dL (30.0-36.0); Mean Corpuscular Hemoglobin 30.5 pg (28.0-34.0); Mean Corpuscular Volume 96.7 fl (81-99); Mean Platelet Volume 10.7 fL (7.4-10.4); Monocytes # 0.4 10^3/uL (0.2-0.9); Monocytes % 9.3 %; Neutrophils # 2.36 10^3/uL (1.8-7.7); Neutrophils % 58.1 %; Nucleated Red Blood Cells % 0 %; Platelet Count 138 10^3/cmm (130-400); Red Blood Count 3.67 10^6/uL (4.1-5.3); Red Cell Distribution Width 14.6 % (12.1-15.1); White Blood Count 4.1 10^3/uL (4.0-10.0)
[2021-07-01 06:55] LABS: Alanine Aminotransferase 14 U/L (0-33); Albumin Level 3.5 g/dL (3.5-5.2); Alkaline Phosphatase 104 IU/L (35-105); Anion Gap 13.2 (5-19); Aspartate Amino Transferase 22 U/L (0-32); Blood Urea Nitrogen 21 mg/dL (6-20); Calcium 10.2 mg/dL (8.5-10.5); Carbon Dioxide 32 mmol/L (22-29); Chloride 100 mmol/L (98-107); Creatinine Clr Calc Pharmacy 122.3008; Globulin 3.3 g/dL (1.3-4.6); Glomerular Filtration Rate 65.8 mL/min (90-130); Glucose 90 mg/dL (65-115); Magnesium 1.7 mg/dL (1.7-2.3); Osmolality Calculated 295 mOsm/kg (285-295); Potassium 4.2 mmol/L (3.5-5.1); Sodium 141 mmol/L (136-145); Thyroid Stimulating Hormone 6.75 uIU/mL (0.27-4.20); Total Protein 6.8 g/dL (6.6-8.7)
[2021-07-01] MEDS: acetaminophen 325 mg Tablet 650 MG PO ×2 (08:12→22:51)
[2021-07-01] MEDS: doxycycline 100 mg Tablet PO ×2 (08:13→17:23)
[2021-07-01] MEDS: dilTIAZem ER (24HR) 120 mg Capsule PO (08:13)
[2021-07-01] MEDS: carvedilol 25 mg Tablet PO ×2 (08:13→20:52)
[2021-07-01] MEDS: apixaban 5 mg Tablet PO ×2 (08:13→17:23)
[2021-07-01] MEDS: potassium chloride ER 20 mEq Tablet 40 MEQ PO ×2 (08:13→17:24)
[2021-07-01] MEDS: losartan 50 mg Tablet 100 MG PO (08:13)
[2021-07-01] MEDS: amoxicillin-clav 875-125 mg Tablet 1 TAB PO ×2 (08:13→17:24)
[2021-07-01] MEDS: FUROsemide 10 mg/mL SDV 10mL 80 MG IVP ×2 (10:11→22:51)
[2021-07-01] MEDS: mupirocin oint 22 gm 1 APPLIC TOPICAL ×2 (10:11→10:51)
--- NOTE | 2021-07-01 11:56 | PM.PN ---
Subjective Subjective: Interval history: She reports she is doing okay, but having pain in the back of her calf at the ulceration. Denies chest pain or pressure. Breathing okay. Decreasing erythema of her foot. Vitals/I&O/Wt Last Vital Signs Temp 97.6 F 07/01/21 08:00 Pulse 77 07/01/21 08:00 Resp 17 07/01/21 08:00 BP 116/82 07/01/21 08:13 Pulse Ox 95 07/01/21 08:00 06/30/21 07/01/21 07/01/21 22:59 06:59 14:59 Intake Total 240 / 240 240 / 480 240 / 240 Output Total 2000 / 3150 3000 / 6150 1300 / 1300 Balance -1760 / -2910 -2760 / -5670 -1060 / -1060 Weight last 48 hrs Weight 182.826 kg Weight 201.849 kg Weight 201.849 kg Physical Exam Const: COMMON NORMALS: no acute distress, patient oriented x3 and alert GENERAL APPEARANCE: cooperative NUTRITIONAL APPEARANCE: obese morbidly obese ORIENTATION/CONSCIOUSNESS: Yes awake HENMT: COMMON NORMALS: oropharynx normal Neck/C-Spine: COMMON NORMALS: no JVD Resp: COMMON NORMALS: normal respiratory effort AUSCULTATION: crackles Laterality: bilateral (base) Cardio: COMMON NORMALS: no JVD, regular rhythm, S1 normal heart sound present, S2 normal heart sound present and No murmurs present (Cardio) RHYTHM: regular rhythm HEART SOUNDS: S1 normal heart sound present and S2 normal heart sound present GI: COMMON NORMALS: Normal to inspection, nondistended, normoactive bowel sounds present, Soft to palpation and non-tender PALPATION: Yes Soft to palpation Extremity: COMMON NORMALS: no joint enlargement GENERAL: Yes edema (4+ BL edema on very large legs, R>L) Neuro: COMMON NORMALS: patient oriented x3 and moves all extremities SENSORIUM/ORIENTATION: Yes alert Skin: COMMON NORMALS: no rashes or lesions noted GENERAL SKIN EXAM: no rashes or lesions noted RASHES: rashes noted (pale erythema post R calf ext dist around R ankle to entire R foot) WOUNDS: Yes wounds noted (ulcer post R calf, 4 cm, shallow, no underm/tunn, min clear drain) Urinary Catheter Management^: Anglin: Cath Placed During This Visit: yes Reason for Continuing Indwelling Catheter: Acute Urinary Retention or Obstruction Urinary Catheter Date of Insertion: 06/30/21 Urinary Catheter Time of Insertion: 15:30 Data : 07/01/21 05:22 07/01/21 05:22 A&P Assessment and plan (1) CHF exacerbation: Diuresing well. Continue Lasix. Likely was not absorbing her medications. Acute HFpEF exacerbation. Cardiology recommendations appreciated. Anglin for close monitoring of ZAKI. Monitor renal function. Did not respond to outpatient management with oral Lasix 80 mg. Reports weight gain of 50 pounds in 3 months. No orthopnea, dyspnea on exertion. With significant edema, possibly unable to absorb oral medications. Status: Acute Qualifiers: Heart failure type: diastolic Qualified Code(s): I50.33 - Acute on chronic diastolic (congestive) heart failure (2) Diastolic heart failure: History of grade 3 diastolic dysfunction on echo. Valvular heart disease. Status: Acute Qualifiers: Heart failure chronicity: acute on chronic Qualified Code(s): I50.33 - Acute on chronic diastolic (congestive) heart failure (3) Aortic stenosis: Status: Acute Qualifiers: Cardiac valve disease etiology: nonrheumatic Qualified Code(s): I35.0 - Nonrheumatic aortic (valve) stenosis (4) Atrial fibrillation, chronic: Continue diltiazem, carvedilol, apixaban. Status: Acute (5) Calf ulcer: Having some pain there. No DVT. Will assess with soft tissue ultrasound. Discussed with her concern that the ulcer may be venous stasis and may have a difficult time healing. Would benefit from compression therapy. She likely would need custom made graduated compression stockings. Collect wound culture. Continue Augmentin, doxycycline. This appears may be venous insufficiency ulceration complicated by cellulitis. Has history of chronic lower extremity edema. Recently exacerbated by her CHF. Discussed with her in addition to treatment of CHF also consideration of graduated compression stockings. Status: Acute (6) Cellulitis of right foot: Good improvement with subsiding/resolving erythema. Augmentin, add doxycycline. No DVT on venous duplex ultrasound. Status: Acute (7) High risk medications (not anticoagulants) long-term use: Discussed with her increased risk of cardiovascular events, [place], CVA with celecoxib, in addition to other risks including kidney injury, gastritis, hypertension, advised her not to use this medication any further especially in the setting of underlying cardiac disease. Discussed with her primary provider and pain management team. Status: Acute Additional A&P Information Headache, nausea, chills: Check COVID-19 PCR. Some symptoms may be related to her cellulitis as well. Chronic lower extremity edema: Has been suffering from chronic lower extremity edema, but this has been much worse after she developed congestive heart failure. Previously she could elevate her legs and edema will resolve, now it does not really go away. Treatment of CHF as above. 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 Due to the size of her legs she understands she may need a special order graduated compression stockings. Discussed with her concern that the ulcer may be venous stasis and may have a difficult time healing. Attestations Medical Necessity Statement*: Continue admission for assessment management of acute CHF exacerbation. Coding Level of Care Code Acute Preventative Maintenance Technician for Marisa Herrera Diagnoses CHF exacerbation I50.33 Heart failure type: diastolic Diastolic heart failure I50.33 Heart failure chronicity: acute on chronic Aortic stenosis I35.0 Cardiac valve disease etiology: nonrheumatic Atrial fibrillation, chronic I48.20 Calf ulcer L97.209 Cellulitis of right foot L03.115 High risk medications (not anticoagulants) long-term use Z79.899
--- NOTE | 2021-07-01 11:57 | USR_ITS ---
PROCEDURE INFORMATION: Exam: US Left Non-Vascular Joint or Other Extremity Structure, Limited Exam date and time: 07/01/2021 11:57 AM Age: 50 years old Clinical indication: Symptoms: Draining ulceration right posterior calf; Additional info: Pain at draining ulceration post calf, assess for abscess/fluid james TECHNIQUE: Imaging protocol: Left US joint or other nonvascular extremity structure or structures. Real-time ultrasound with image documentation. Limited study. COMPARISON: CR XR knees AP WB w LT lmt ORTH 12/27/2020 11:51 AM FINDINGS: Scanning was done of the area of ulceration using a pleural with sterile cover. No focal fluid collection, mass or abscess is identified. US/US soft tissue/extremity [id number] IMPRESSION: No focal abscess is identified. Radiation Dose CTDIVOL = (mGy): DLP = (mGy-cm)
--- NOTE | 2021-07-01 21:56 | PM.PN ---
Subjective Subjective: Interval history: Patient says she continued diuresed well she is feeling much better Medications: Reviewed: Yes Vitals/I&O/Wt Last Vital Signs Temp 97.6 F 07/01/21 20:00 Pulse 73 07/01/21 20:00 Resp 22 H 07/01/21 20:00 BP 109/71 07/01/21 20:00 Pulse Ox 93 07/01/21 20:00 07/01/21 07/01/21 07/01/21 06:59 14:59 22:59 Intake Total 240 / 480 292 / 292 240 / 532 Output Total 3000 / 6150 2200 / 2200 Balance -2760 / -5670 -1908 / -1908 240 / -1668 Weight last 48 hrs Weight 403 lb 1 oz Weight 445 lb Weight 445 lb Physical Exam Narrative: EXAM NARRATIVE: GENERAL: Patient is alert, awake and oriented x3. NECK: No jugular vein distension. HEENT: No cyanosis. No icterus. No pallor. HEART: Regular S1 and S2. No murmur, rub or gallop. LUNGS: Clear to auscultate bilaterally. ABDOMEN: Firm, nontender and nondistended. Positive bowel sounds. No guarding, rebound or tenderness. Increased abdominal girth with abdominal wall edema CENTRAL NERVOUS SYSTEM: Grossly nonfocal. EXTREMITIES: Lower extremities with 2+ edema bilaterally. Lower extremity has weeping skin it is wrapped Urinary Catheter Management^: Anglin: Cath Placed During This Visit: yes Reason for Continuing Indwelling Catheter: Acute Urinary Retention or Obstruction Urinary Catheter Date of Insertion: 06/30/21 Urinary Catheter Time of Insertion: 15:30 Data : 07/01/21 05:22 07/01/21 05:22 Micro: Microbiology 06/30/21 18:00 Gram Stain - Final Leg - Right A&P Assessment and plan (1) Diastolic heart failure: Continue IV diuresis with electrolyte balance continue Lasix at 80 mg twice daily and potassium at 40 mEq twice daily, patient has pinkish urine most likely due to traumatic catheter and being on Xarelto continue to monitor Status: Acute Qualifiers: Heart failure chronicity: acute on chronic Qualified Code(s): I50.33 - Acute on chronic diastolic (congestive) heart failure (2) Aortic stenosis: Mild left stenosis at the moment not much contributing to heart failure continue to monitor Status: Acute Qualifiers: Cardiac valve disease etiology: nonrheumatic Qualified Code(s): I35.0 - Nonrheumatic aortic (valve) stenosis (3) Atrial fibrillation, chronic: On anticoagulation rate controlled Status: Acute Attestations Medical Necessity Statement*: Patient require continuation hospitalization for above defined care. Coding Level of Care Code Established Pt Acute Service Observer for Marisa Herrera Patient Type Established History Detailed Exam Detailed Medical Decision Making Moderate Complexity Diagnoses Diastolic heart failure I50.33 Heart failure chronicity: acute on chronic Aortic stenosis I35.0 Cardiac valve disease etiology: nonrheumatic Atrial fibrillation, chronic I48.20
[2021-07-02 03:23] VITALS: BP 121/71; PULSE 68; RESP 16; TEMP 36.6; O2SAT 94
[2021-07-02 05:29] LABS: Basophils % 0.2 %; Eosinophils # 0.1 10^3/uL (0.0-0.8); Eosinophils % 1.2 %; Hematocrit 38.2 % (37.0-47.0); Hemoglobin 11.7 g/dL (11.5-15.3); Lymphocytes # 1.6 10^3/uL (0.8-4.8); Lymphocytes % 32.4 %; Mean Corpuscular HGB Conc 30.6 g/dL (30.0-36.0); Mean Corpuscular Hemoglobin 30.1 pg (28.0-34.0); Mean Corpuscular Volume 98.2 fl (81-99); Mean Platelet Volume 10.5 fL (7.4-10.4); Monocytes # 0.5 10^3/uL (0.2-0.9); Monocytes % 9.6 %; Neutrophils # 2.77 10^3/uL (1.8-7.7); Neutrophils % 56.4 %; Nucleated Red Blood Cells % 0 %; Platelet Count 145 10^3/cmm (130-400); Red Blood Count 3.89 10^6/uL (4.1-5.3); Red Cell Distribution Width 14.6 % (12.1-15.1); White Blood Count 4.9 10^3/uL (4.0-10.0)
[2021-07-02 05:48] LABS: Anion Gap 13.9 (5-19); Blood Urea Nitrogen 25 mg/dL (6-20); Calcium 10.2 mg/dL (8.5-10.5); Carbon Dioxide 33 mmol/L (22-29); Chloride 94 mmol/L (98-107); Glomerular Filtration Rate 65.8 mL/min (90-130); Glucose 92 mg/dL (65-115); Magnesium 1.8 mg/dL (1.7-2.3); Osmolality Calculated 288 mOsm/kg (285-295); Potassium 3.9 mmol/L (3.5-5.1); Sodium 137 mmol/L (136-145)
[2021-07-02 07:36] VITALS: BP 122/75; PULSE 78; RESP 16; TEMP 36.9; O2SAT 93
[2021-07-02] MEDS: dilTIAZem ER (24HR) 120 mg Capsule PO (08:45)
[2021-07-02] MEDS: amoxicillin-clav 875-125 mg Tablet 1 TAB PO ×2 (08:45→17:22)
[2021-07-02] MEDS: losartan 50 mg Tablet 100 MG PO (08:45)
[2021-07-02] MEDS: doxycycline 100 mg Tablet PO (08:45)
[2021-07-02] MEDS: potassium chloride ER 20 mEq Tablet 40 MEQ PO ×2 (08:45→17:22)
[2021-07-02] MEDS: carvedilol 25 mg Tablet PO (08:46)
[2021-07-02] MEDS: apixaban 5 mg Tablet PO ×2 (08:46→17:22)
[2021-07-02] MEDS: mupirocin oint 22 gm 1 APPLIC TOPICAL ×2 (08:46→17:23)
[2021-07-02] MEDS: acetaminophen 325 mg Tablet 650 MG PO (09:02)
[2021-07-02] MEDS: FUROsemide 10 mg/mL SDV 10mL 80 MG IVP (09:54)
[2021-07-02 11:46] VITALS: BP 125/80; PULSE 77; RESP 14; TEMP 36.6; O2SAT 95
[2021-07-02] MEDS: acetaZOLAMIDE 250 mg Tablet 500 MG PO (14:42)
[2021-07-02 15:06] LABS: Iron 88 ug/dL (37-145); Percent Saturation 31.3 % (20-50); Total Iron Binding Capacity 281 mcg/dl; Unsaturated Iron Binding 193 ug/dL (112-347)
[2021-07-02 15:38] VITALS: BP 107/74; PULSE 74; RESP 18; TEMP 36.6; O2SAT 90
[2021-07-02] MEDS: metoclopramide 10 mg Tablet PO (16:35)
--- NOTE | 2021-07-02 16:45 | P.PN_ITS ---
Subjective Subjective: Interval history: Labs appreciated. Examination ambulatory with walker. Denies any nausea, vomiting, headache. States feeling better than when she came in. Documented 14 L negative since admission. More than 8 L of urine output in last 24 hours. Vitals/I&O/Wt Last Vital Signs Temp 98 F 07/02/21 15:38 Pulse 74 07/02/21 15:38 Resp 18 07/02/21 15:38 BP 107/74 07/02/21 15:38 Pulse Ox 90 07/02/21 15:38 07/02/21 07/02/21 07/02/21 06:59 14:59 22:59 Intake Total 600 / 600 Output Total 4100 / 6300 2400 / 2400 2200 / 4600 Balance -4100 / -5768 -1800 / -1800 -2200 / -4000 Weight last 48 hrs Weight 177.037 kg Weight 182.826 kg Physical Exam Const: COMMON NORMALS: no acute distress, patient oriented x3 and alert GENERAL APPEARANCE: cooperative NUTRITIONAL APPEARANCE: obese morbidly obese ORIENTATION/CONSCIOUSNESS: Yes awake HENMT: COMMON NORMALS: oropharynx normal Neck/C-Spine: COMMON NORMALS: no JVD Resp: COMMON NORMALS: normal respiratory effort AUSCULTATION: crackles Laterality: bilateral (base) Cardio: COMMON NORMALS: no JVD, regular rhythm, S1 normal heart sound present, S2 normal heart sound present and No murmurs present (Cardio) RHYTHM: regular rhythm HEART SOUNDS: S1 normal heart sound present and S2 normal heart sound present GI: COMMON NORMALS: Normal to inspection, nondistended, normoactive bowel sounds present, Soft to palpation and non-tender PALPATION: Yes Soft to palpation Extremity: COMMON NORMALS: no joint enlargement GENERAL: Yes edema (4+ BL edema on very large legs, R>L) Neuro: COMMON NORMALS: patient oriented x3 and moves all extremities SENSORIUM/ORIENTATION: Yes alert Skin: COMMON NORMALS: no rashes or lesions noted GENERAL SKIN EXAM: no rashes or lesions noted RASHES: rashes noted (pale erythema post R calf ext dist around R ankle to entire R foot) WOUNDS: Yes wounds noted (ulcer post R calf, 4 cm, shallow, no underm/tunn, min clear drain) Urinary Catheter Management^: Anglin: Cath Placed During This Visit: yes Reason for Continuing Indwelling Catheter: Acute Urinary Retention or Obstruction Urinary Catheter Date of Insertion: 06/30/21 Urinary Catheter Time of Insertion: 15:30 Data : 07/02/21 04:52 07/02/21 04:52 Micro: Microbiology 06/30/21 18:00 Gram Stain - Final Leg - Right Wound Culture - Preliminary Gram Negative Rods Gram Negative Rods#2 A&P Assessment and plan (1) CHF exacerbation: Diuresing well. Continue Lasix. Likely was not absorbing her medications. Acute HFpEF exacerbation. Cardiology recommendations appreciated. Derrek for close monitoring of ZAKI. Monitor renal function. Did not respond to outpatient management with oral Lasix 80 mg. Reports weight gain of 50 pounds in 3 months. No orthopnea, dyspnea on exertion. With significant edema, possibly unable to absorb oral medications. Status: Acute Qualifiers: Heart failure type: diastolic Qualified Code(s): I50.33 - Acute on chronic diastolic (congestive) heart failure (2) Diastolic heart failure: History of grade 3 diastolic dysfunction on echo. Valvular heart disease. Status: Acute Qualifiers: Heart failure chronicity: acute on chronic Qualified Code(s): I50.33 - Acute on chronic diastolic (congestive) heart failure (3) Aortic stenosis: Status: Acute Qualifiers: Cardiac valve disease etiology: nonrheumatic Qualified Code(s): I35.0 - Nonrheumatic aortic (valve) stenosis (4) Atrial fibrillation, chronic: Continue diltiazem, carvedilol, apixaban. Status: Acute (5) Calf ulcer: Having some pain there. No DVT. Will assess with soft tissue ultrasound. Discussed with her concern that the ulcer may be venous stasis and may have a difficult time healing. Would benefit from compression therapy. She likely would need custom made graduated compression stockings. Collect wound culture. Continue Augmentin, doxycycline. This appears may be venous insufficiency ulceration complicated by cellulitis. Has history of chronic lower extremity edema. Recently exacerbated by her CHF. Discussed with her in addition to treatment of CHF also consideration of graduated compression stockings. Status: Acute (6) Cellulitis of right foot: Good improvement with subsiding/resolving erythema. Augmentin, add doxycycline. No DVT on venous duplex ultrasound. Status: Acute (7) High risk medications (not anticoagulants) long-term use: Discussed with her increased risk of cardiovascular events, [place], CVA with celecoxib, in addition to other risks including kidney injury, gastritis, hypertension, advised her not to use this medication any further especially in the setting of underlying cardiac disease. Discussed with her primary provider and pain management team. Status: Acute Additional A&P Information Headache, nausea, chills: Check COVID-19 PCR. Some symptoms may be related to her cellulitis as well. Chronic lower extremity edema: Has been suffering from chronic lower extremity edema, but this has been much worse after she developed congestive heart failur e. Previously she could elevate her legs and edema will resolve, now it does not really go away. Treatment of CHF as above. 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 Due to the size of her legs she understands she may need a special order graduated compression stockings. Discussed with her concern that the ulcer may be venous stasis and may have a difficult time healing. Plan for the day:. Robust urine output to Lasix. Developing mild contraction alkalosis. Decrease Lasix to 40 mg twice daily. Add Diamox 500 mg daily. Compression stockings. Wound cultures growing gram-negative rods. Stop doxycycline. Continue with Augmentin, add Levaquin. Will follow wound culture results and change antibiotics accordingly. Continue to monitor strict input output charting. Fluid restriction up to 1500 cc. Attestations Medical Necessity Statement*: Requires further hospitalization for management of acute decompensated chronic diastolic congestive heart failure, cellulitis of foot Time Spent in Patient Care: Greater than 35 minutes (>than 50% of time spent in counselling and/or direct pt care on unit) . Coding Level of Care Code Acute Electrical Engineering Technician for Marisa Herrera Diagnoses CHF exacerbation I50.33 Heart failure type: diastolic Diastolic heart failure I50.33 Heart failure chronicity: acute on chronic Aortic stenosis I35.0 Cardiac valve disease etiology: nonrheumatic Atrial fibrillation, chronic I48.20 Calf ulcer L97.209 Cellulitis of right foot L03.115 High risk medications (not anticoagulants) long-term use Z79.891
[2021-07-02] MEDS: levoFLOXacin 500 mg Tablet PO (17:22)
[2021-07-02 17:45] LABS: Free T4 Free Thyroxine 1.23 ng/dL (0.82-1.77); T3 Free 2.5 PG/ML (2.0-4.4)
--- NOTE | 2021-07-02 18:23 | PM.PN ---
Subjective Subjective: Interval history: Patient has -2 L feeling better sitting on the chair Medications: Reviewed: Yes Vitals/I&O/Wt Last Vital Signs Temp 98 F 07/02/21 15:38 Pulse 74 07/02/21 15:38 Resp 18 07/02/21 15:38 BP 107/74 07/02/21 15:38 Pulse Ox 90 07/02/21 15:38 07/02/21 07/02/21 07/02/21 06:59 14:59 22:59 Intake Total 600 / 600 240 / 840 Output Total 4100 / 6300 2400 / 2400 2200 / 4600 Balance -4100 / -5768 -1800 / -1800 -1960 / -3760 Weight last 48 hrs Weight 390 lb 4.8 oz Weight 403 lb 1 oz Physical Exam Narrative: EXAM NARRATIVE: GENERAL: Patient is alert, awake and oriented x3. NECK: No jugular vein distension. HEENT: No cyanosis. No icterus. No pallor. HEART: Regular S1 and S2. No murmur, rub or gallop. LUNGS: Clear to auscultate bilaterally. ABDOMEN: Firm, nontender and nondistended. Positive bowel sounds. No guarding, rebound or tenderness. Increased abdominal girth with abdominal wall edema CENTRAL NERVOUS SYSTEM: Grossly nonfocal. EXTREMITIES: Lower extremities with 2+ edema bilaterally. Lower extremity has weeping skin it is wrapped Urinary Catheter Management^: Anglin: Cath Placed During This Visit: yes Reason for Continuing Indwelling Catheter: Acute Urinary Retention or Obstruction Urinary Catheter Date of Insertion: 06/30/21 Urinary Catheter Time of Insertion: 15:30 Data : 07/02/21 04:52 07/02/21 04:52 Micro: Microbiology 07/02/21 16:40 Blood Culture - Preliminary Blood SPECIMEN COLLECTED 07/02/21 16:46 Blood Culture - Preliminary Blood SPECIMEN COLLECTED 06/30/21 18:00 Gram Stain - Final Leg - Right Wound Culture - Preliminary Gram Negative Rods Gram Negative Rods#2 A&P Assessment and plan (1) Diastolic heart failure: Continue IV diuresis, continue electrolyte balance Status: Acute Qualifiers: Heart failure chronicity: acute on chronic Qualified Code(s): I50.33 - Acute on chronic diastolic (congestive) heart failure (2) Aortic stenosis: Mild left stenosis at the moment not much contributing to heart failure continue to monitor Status: Acute Qualifiers: Cardiac valve disease etiology: nonrheumatic Qualified Code(s): I35.0 - Nonrheumatic aortic (valve) stenosis (3) Atrial fibrillation, chronic: On anticoagulation rate controlled Status: Acute Attestations Medical Necessity Statement*: Patient require continuation hospitalization for above defined care. Coding Level of Care Code Established Pt Acute Pipe Wrapping Machine Operator for Marisa Herrera Patient Type Established History Expanded Problem Focused Exam Expanded Problem Focused Medical Decision Making Moderate Complexity Diagnoses Diastolic heart failure I50.33 Heart failure chronicity: acute on chronic Aortic stenosis I35.0 Cardiac valve disease etiology: nonrheumatic Atrial fibrillation, chronic I48.20
[2021-07-02] MEDS: FUROsemide 10 mg/mL SDV 10mL 40 MG IVP (18:25)
[2021-07-02 20:00] VITALS: BP 72/50; PULSE 105; RESP 17; TEMP 36.4; O2SAT 95
--- NOTE | 2021-07-02 20:15 | PC.NURSE ---
i reported low temp 97.5 and high pulse 105 to nurse
[2021-07-02 21:27] VITALS: BP 101/62; PULSE 83; RESP 18; O2SAT 92
[2021-07-03] VITALS (10 sets, daily range): BP systolic 83–125; BP diastolic 43–73; PULSE 74–92; RESP 14–26; TEMP 36.4–37; O2SAT 93–97
[2021-07-03] MEDS: acetaminophen 325 mg Tablet 650 MG PO (00:14)
[2021-07-03] MEDS: levoFLOXacin 500 mg Tablet PO (06:05)
[2021-07-03 06:33] LABS: Basophils % 0.3 %; Eosinophils # 0.1 10^3/uL (0.0-0.8); Eosinophils % 1.7 %; Hematocrit 40.6 % (37.0-47.0); Lymphocytes # 1.7 10^3/uL (0.8-4.8); Lymphocytes % 27.8 %; Mean Corpuscular Hemoglobin 31.2 pg (28.0-34.0); Mean Corpuscular Volume 97.4 fl (81-99); Mean Platelet Volume 10.1 fL (7.4-10.4); Monocytes # 0.6 10^3/uL (0.2-0.9); Monocytes % 10.4 %; Neutrophils # 3.56 10^3/uL (1.8-7.7); Neutrophils % 59.5 %; Nucleated Red Blood Cells % 0 %; Platelet Count 163 10^3/cmm (130-400); Red Blood Count 4.17 10^6/uL (4.1-5.3); Red Cell Distribution Width 14.5 % (12.1-15.1)
[2021-07-03 06:52] LABS: Alanine Aminotransferase 16 U/L (0-33); Albumin Level 3.8 g/dL (3.5-5.2); Alkaline Phosphatase 102 IU/L (35-105); Anion Gap 14.3 (5-19); Aspartate Amino Transferase 21 U/L (0-32); Blood Urea Nitrogen 31 mg/dL (6-20); Calcium 10.2 mg/dL (8.5-10.5); Carbon Dioxide 31 mmol/L (22-29); Chloride 95 mmol/L (98-107); Chol HDL Ratio 2.66 mg/dL (0.0-4.40); Cholesterol 125 mg/dL (0-200); Globulin 3.5 g/dL (1.3-4.6); Glomerular Filtration Rate 58.2 mL/min (90-130); Glucose 93 mg/dL (65-115); HDL Cholesterol 47 mg/dL (60-100); LDL Cholesterol Calculated 65 mg/dL (50-129); Magnesium 1.8 mg/dL (1.7-2.3); Osmolality Calculated 288 mOsm/kg (285-295); Potassium 4.3 mmol/L (3.5-5.1); Sodium 136 mmol/L (136-145); Total Bilirubin 1.5 mg/dL (0.15-1.2); Total Protein 7.3 g/dL (6.6-8.7); Triglycerides 67 mg/dL (0-150); VLDL Cholestrol Calculation 13 mg/dL (0-30)
[2021-07-03] MEDS: FUROsemide 10 mg/mL SDV 10mL 40 MG IVP ×2 (06:54→17:28)
--- NOTE | 2021-07-03 07:03 | PC.NURSE ---
hospitalist notified of current bp of 95/58 and pulse 74 and patient scheduled to receive Lasix, nurse advised by hospitalist to go ahead and give lasix
[2021-07-03 07:23] LABS: Estmated Average Glucose 100; Hemoglobin A1C 5.1 % (4.0-6.0)
[2021-07-03] MEDS: acetaZOLAMIDE 250 mg Tablet 500 MG PO (08:56)
[2021-07-03] MEDS: losartan 50 mg Tablet 100 MG PO (08:57)
[2021-07-03] MEDS: dilTIAZem ER (24HR) 120 mg Capsule PO (08:57)
[2021-07-03] MEDS: carvedilol 25 mg Tablet PO (08:57)
[2021-07-03] MEDS: amoxicillin-clav 875-125 mg Tablet 1 TAB PO (08:57)
[2021-07-03] MEDS: potassium chloride ER 20 mEq Tablet 40 MEQ PO ×2 (08:57→17:28)
[2021-07-03] MEDS: mupirocin oint 22 gm 1 APPLIC TOPICAL (08:58)
[2021-07-03] MEDS: apixaban 5 mg Tablet PO ×2 (08:58→17:28)
[2021-07-03 09:48] LABS: T4 Total 8.2 mcg/dL (5.1-11.9)
--- NOTE | 2021-07-03 13:59 | PM.PN ---
Subjective Subjective: Interval history: Overnight patient had mild low blood pressures associated with dizziness when standing up. Today morning states she is feeling a lot better. Able to stand up without dizziness. Patient has already received all her oral medications today morning. Net 21 L negative, urine output in last 24 hours over 10 L Medications: Reviewed: Yes Vitals/I&O/Wt Last Vital Signs Temp 98.6 F 07/03/21 12:00 Pulse 85 07/03/21 12:00 Resp 14 07/03/21 12:00 BP 94/61 07/03/21 12:00 Pulse Ox 93 07/03/21 12:00 07/02/21 07/03/21 07/03/21 22:59 06:59 14:59 Intake Total 240 / 840 Output Total 2200 / 4600 5750 / 12868 Balance -1960 / -3760 -5750 / -9510 Weight last 48 hrs Weight 171.231 kg Weight 177.037 kg Physical Exam Const: COMMON NORMALS: no acute distress, patient oriented x3 and alert GENERAL APPEARANCE: cooperative NUTRITIONAL APPEARANCE: obese morbidly obese ORIENTATION/CONSCIOUSNESS: Yes awake HENMT: COMMON NORMALS: oropharynx normal Neck/C-Spine: COMMON NORMALS: no JVD Resp: COMMON NORMALS: normal respiratory effort AUSCULTATION: crackles Laterality: bilateral (base) Cardio: COMMON NORMALS: no JVD, regular rhythm, S1 normal heart sound present, S2 normal heart sound present and No murmurs present (Cardio) RHYTHM: regular rhythm HEART SOUNDS: S1 normal heart sound present and S2 normal heart sound present GI: COMMON NORMALS: Normal to inspection, nondistended, normoactive bowel sounds present, Soft to palpation and non-tender PALPATION: Yes Soft to palpation Extremity: COMMON NORMALS: no joint enlargement GENERAL: Yes edema (4+ BL edema on very large legs, R>L) Neuro: COMMON NORMALS: patient oriented x3 and moves all extremities SENSORIUM/ORIENTATION: Yes alert Skin: COMMON NORMALS: no rashes or lesions noted GENERAL SKIN EXAM: no rashes or lesions noted RASHES: rashes noted (pale erythema post R calf ext dist around R ankle to entire R foot) WOUNDS: Yes wounds noted (ulcer post R calf, 4 cm, shallow, no underm/tunn, min clear drain) Urinary Catheter Management^: Anglin: Cath Placed During This Visit: yes Reason for Continuing Indwelling Catheter: Acute Urinary Retention or Obstruction Urinary Catheter Date of Insertion: 06/30/21 Urinary Catheter Time of Insertion: 15:30 Data : 07/03/21 06:25 07/03/21 06:25 Micro: Microbiology 06/30/21 18:00 Gram Stain - Final Leg - Right Wound Culture - Final Escherichia coli Stenotrophomonas maltophilia 07/02/21 16:40 Blood Culture - Preliminary Blood SPECIMEN COLLECTED 07/02/21 16:46 Blood Culture - Preliminary Blood SPECIMEN COLLECTED A&P Assessment and plan (1) CHF exacerbation: Diuresing well. Continue Lasix. Likely was not absorbing her medications. Acute HFpEF exacerbation. Cardiology recommendations appreciated. Derrek for close monitoring of ZAKI. Monitor renal function. Did not respond to outpatient management with oral Lasix 80 mg. Reports weight gain of 50 pounds in 3 months. No orthopnea, dyspnea on exertion. With significant edema, possibly unable to absorb oral medications. Status: Acute Qualifiers: Heart failure type: diastolic Qualified Code(s): I50.33 - Acute on chronic diastolic (congestive) heart failure (2) Diastolic heart failure: History of grade 3 diastolic dysfunction on echo. Valvular heart disease. Status: Acute Qualifiers: Heart failure chronicity: acute on chronic Qualified Code(s): I50.33 - Acute on chronic diastolic (congestive) heart failure (3) Aortic stenosis: Status: Acute Qualifiers: Cardiac valve disease etiology: nonrheumatic Qualified Code(s): I35.0 - Nonrheumatic aortic (valve) stenosis (4) Atrial fibrillation, chronic: Continue diltiazem, carvedilol, apixaban. Status: Acute (5) Calf ulcer: Having some pain there. No DVT. Will assess with soft tissue ultrasound. Discussed with her concern that the ulcer may be venous stasis and may have a difficult time healing. Would benefit from compression therapy. She likely would need custom made graduated compression stockings. Collect wound culture. Continue Augmentin, doxycycline. This appears may be venous insufficiency ulceration complicated by cellulitis. Has history of chronic lower extremity edema. Recently exacerbated by her CHF. Discussed with her in addition to treatment of CHF also consideration of graduated compression stockings. Status: Acute (6) Cellulitis of right foot: Good improvement with subsiding/resolving erythema. Augmentin, add doxycycline. No DVT on venous duplex ultrasound. Status: Acute (7) High risk medications (not anticoagulants) long-term use: Discussed with her increased risk of cardiovascular events, [place], CVA with celecoxib, in addition to other risks including kidney injury, gastritis, hypertension, advised her not to use this medication any further especially in the setting of underlying cardiac disease. Discussed with her primary provider and pain management team. Status: Acute Additional A&P Information Chronic lower extremity edema: Has been suffering from chronic lower extremity edema, but this has been much worse after she developed congestive heart failure. Previously she could elevate her legs and edema will resolve, now it does not really go away. Treatment of CHF as above. 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 Due to the size of her legs she understands she may need a special order graduated compression stockings. Discussed with her concern that the ulcer may be venous stasis and may have a difficult time healing. Plan for the day: Continue with IV diuresis with Lasix 40 mg twice daily. Stop Diamox. Compression stockings. Wound cultures growing E. coli and stenotrophomonas. Continue with Levaquin to finish off a 7-day course. Day 2 today. Most likely can transition over to oral Lasix tomorrow. For mild hypotension hold off on evening dose of Coreg and morning dose of losartan tomorrow. Continue to monitor. Goal blood pressure less than 140/90 mmHg. Attestations Medical Necessity Statement*: Requires further hospitalization for management of anasarca, acute decompensated diastolic heart failure Time Spent in Patient Care: Greater than 35 minutes (>than 50% of time spent in counselling and/or direct pt care on unit). 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
--- NOTE | 2021-07-03 19:21 | PM.PN ---
Subjective Subjective: Interval history: Continues to diurese well dropped her pressure last night, losartan is on hold Medications: Reviewed: Yes Vitals/I&O/Wt Last Vital Signs Temp 97.5 F L 07/03/21 15:40 Pulse 77 07/03/21 15:40 Resp 26 H 07/03/21 15:40 BP 112/70 07/03/21 18:21 Pulse Ox 96 07/03/21 15:40 07/03/21 07/03/21 07/03/21 06:59 14:59 22:59 Intake Total 200 / 200 Output Total 5750 / 69425 1700 / 1700 Balance -5750 / -9510 200 / 200 -1700 / -1500 Weight last 48 hrs Weight 377 lb 8 oz Weight 390 lb 4.8 oz Physical Exam Narrative: EXAM NARRATIVE: GENERAL: Patient is alert, awake and oriented x3. NECK: No jugular vein distension. HEENT: No cyanosis. No icterus. No pallor. HEART: Regular S1 and S2. No murmur, rub or gallop. LUNGS: Clear to auscultate bilaterally. ABDOMEN: Firm, nontender and nondistended. Positive bowel sounds. No guarding, rebound or tenderness. Increased abdominal girth with abdominal wall edema CENTRAL NERVOUS SYSTEM: Grossly nonfocal. EXTREMITIES: Lower extremities with 1+ edema bilaterally. Lower extremity has weeping skin it is wrapped Urinary Catheter Management^: Anglin: Cath Placed During This Visit: yes Reason for Continuing Indwelling Catheter: Acute Urinary Retention or Obstruction Urinary Catheter Date of Insertion: 06/30/21 Urinary Catheter Time of Insertion: 15:30 Data : 07/03/21 06:25 07/03/21 06:25 Micro: Microbiology 07/02/21 16:40 Blood Culture - Preliminary Blood NEGATIVE TO DATE 07/02/21 16:46 Blood Culture - Preliminary Blood NEGATIVE TO DATE 07/02/21 14:46 MRSA Culture - Final Nose 06/30/21 18:00 Gram Stain - Final Leg - Right Wound Culture - Final Escherichia coli Stenotrophomonas maltophilia A&P Assessment and plan (1) Diastolic heart failure: Continue IV diuresis, continue electrolyte balance Status: Acute Qualifiers: Heart failure chronicity: acute on chronic Qualified Code(s): I50.33 - Acute on chronic diastolic (congestive) heart failure (2) Aortic stenosis: Mild left stenosis at the moment not much contributing to heart failure continue to monitor Status: Acute Qualifiers: Cardiac valve disease etiology: nonrheumatic Qualified Code(s): I35.0 - Nonrheumatic aortic (valve) stenosis (3) Atrial fibrillation, chronic: On anticoagulation rate controlled Status: Acute Attestations Medical Necessity Statement*: Patient require continuation hospitalization for above defined care. 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
[2021-07-04] VITALS (7 sets, daily range): BP systolic 93–115; BP diastolic 60–74; PULSE 80–92; RESP 17–19; TEMP 36.3–37; O2SAT 92–97
[2021-07-04] MEDS: levoFLOXacin 500 mg Tablet PO (05:28)
[2021-07-04] MEDS: FUROsemide 10 mg/mL SDV 10mL 40 MG IVP (05:34)
[2021-07-04 05:40] LABS: Basophils % 0.2 %; Eosinophils # 0.1 10^3/uL (0.0-0.8); Eosinophils % 1.7 %; Hematocrit 41.5 % (37.0-47.0); Mean Corpuscular HGB Conc 31.3 g/dL (30.0-36.0); Mean Corpuscular Hemoglobin 30.7 pg (28.0-34.0); Mean Corpuscular Volume 98.1 fl (81-99); Mean Platelet Volume 10.4 fL (7.4-10.4); Monocytes # 0.7 10^3/uL (0.2-0.9); Monocytes % 10.6 %; Neutrophils # 3.56 10^3/uL (1.8-7.7); Neutrophils % 56.2 %; Nucleated Red Blood Cells % 0 %; Platelet Count 162 10^3/cmm (130-400); Red Blood Count 4.23 10^6/uL (4.1-5.3); Red Cell Distribution Width 14.6 % (12.1-15.1); White Blood Count 6.3 10^3/uL (4.0-10.0)
[2021-07-04 06:03] LABS: Alanine Aminotransferase 20 U/L (0-33); Albumin Level 3.8 g/dL (3.5-5.2); Alkaline Phosphatase 104 IU/L (35-105); Aspartate Amino Transferase 27 U/L (0-32); Blood Urea Nitrogen 40 mg/dL (6-20); Calcium 9.8 mg/dL (8.5-10.5); Chloride 95 mmol/L (98-107); Globulin 3.6 g/dL (1.3-4.6); Glomerular Filtration Rate 31.6 mL/min (90-130); Glucose 95 mg/dL (65-115); Osmolality Calculated 292 mOsm/kg (285-295); Potassium 4.6 mmol/L (3.5-5.1); Sodium 136 mmol/L (136-145); Total Bilirubin 1.2 mg/dL (0.15-1.2); Total Protein 7.4 g/dL (6.6-8.7)
[2021-07-04] MEDS: potassium chloride ER 20 mEq Tablet 40 MEQ PO ×2 (08:22→17:10)
[2021-07-04] MEDS: apixaban 5 mg Tablet PO ×2 (08:22→17:10)
[2021-07-04] MEDS: dilTIAZem ER (24HR) 120 mg Capsule PO (08:22)
[2021-07-04] MEDS: acetaminophen 325 mg Tablet 650 MG PO (18:15)
--- NOTE | 2021-07-04 18:29 | P.PN_ITS ---
Subjective Subjective: Interval history: Patient creatinine has went up she has diuresed very well at this point we will hold diuretics Medications: Reviewed: Yes Vitals/I&O/Wt Last Vital Signs Temp 98.2 F 07/04/21 16:00 Pulse 86 07/04/21 16:00 Resp 17 07/04/21 16:00 BP 108/74 07/04/21 16:00 Pulse Ox 97 07/04/21 16:00 07/04/21 07/04/21 07/04/21 06:59 14:59 22:59 Intake Total 720 / 720 360 / 1080 Output Total 1150 / 2850 1400 / 1400 Balance -1150 / -2650 -680 / -680 360 / -320 Weight last 48 hrs Weight 368 lb 5 oz Weight 377 lb 8 oz Physical Exam Narrative: EXAM NARRATIVE: GENERAL: Patient is alert, awake and oriented x3. NECK: No jugular vein distension. HEENT: No cyanosis. No icterus. No pallor. HEART: Regular S1 and S2. No murmur, rub or gallop. LUNGS: Clear to auscultate bilaterally. ABDOMEN: Firm, nontender and nondistended. Positive bowel sounds. No guarding, rebound or tenderness. Increased abdominal girth with abdominal wall edema CENTRAL NERVOUS SYSTEM: Grossly nonfocal. EXTREMITIES: Lower extremities without edema bilaterally. Urinary Catheter Management^: Anglin: Cath Placed During This Visit: yes Reason for Continuing Indwelling Catheter: Acute Urinary Retention or Obstruction Urinary Catheter Date of Insertion: 06/30/21 Urinary Catheter Time of Insertion: 15:30 Data : 07/04/21 05:15 07/04/21 05:15 Micro: Microbiology 07/02/21 16:40 Blood Culture - Preliminary Blood NEGATIVE TO DATE 07/02/21 16:46 Blood Culture - Preliminary Blood NEGATIVE TO DATE 07/02/21 14:46 MRSA Culture - Final Nose A&P Assessment and plan (1) Diastolic heart failure: Patient is now DrMartine schaeffer has went up will hold diuretics Status: Acute Qualifiers: Heart failure chronicity: acute on chronic Qualified Code(s): I50.33 - Acute on chronic diastolic (congestive) heart failure (2) Aortic stenosis: Mild left stenosis at the moment not much contributing to heart failure continue to monitor Status: Acute Qualifiers: Cardiac valve disease etiology: nonrheumatic Qualified Code(s): I35.0 - Nonrheumatic aortic (valve) stenosis (3) Atrial fibrillation, chronic: On anticoagulation rate controlled Status: Acute (4) Prerenal azotemia: Patient appeared to be dry hold diuretics now creatinine is 1.7. Status: Acute Attestations Medical Necessity Statement*: If creatinine improved more likely discharge tomorrow on p.o. 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
--- NOTE | 2021-07-04 19:11 | PM.PN ---
Subjective Subjective: Interval history: Patients respiratory status improving. Does not feel at baseline yet. Medications: Reviewed: Yes Vitals/I&O/Wt Last Vital Signs Temp 98.2 F 07/04/21 16:00 Pulse 86 07/04/21 16:00 Resp 17 07/04/21 16:00 BP 108/74 07/04/21 16:00 Pulse Ox 97 07/04/21 16:00 07/04/21 07/04/21 07/04/21 06:59 14:59 22:59 Intake Total 720 / 720 360 / 1080 Output Total 1150 / 2850 1400 / 1400 1000 / 2400 Balance -1150 / -2650 -680 / -680 -640 / -1320 Weight last 48 hrs Weight 167.064 kg Weight 171.231 kg Physical Exam Const: COMMON NORMALS: no acute distress, patient oriented x3 and alert GENERAL APPEARANCE: cooperative NUTRITIONAL APPEARANCE: obese morbidly obese ORIENTATION/CONSCIOUSNESS: Yes awake HENMT: COMMON NORMALS: oropharynx normal Neck/C-Spine: COMMON NORMALS: no JVD Resp: COMMON NORMALS: normal respiratory effort AUSCULTATION: crackles Laterality: bilateral (base) Cardio: COMMON NORMALS: no JVD, regular rhythm, S1 normal heart sound present, S2 normal heart sound present and No murmurs present (Cardio) RHYTHM: regular rhythm HEART SOUNDS: S1 normal heart sound present and S2 normal heart sound present GI: COMMON NORMALS: Normal to inspection, nondistended, normoactive bowel sounds present, Soft to palpation and non-tender PALPATION: Yes Soft to palpation Extremity: COMMON NORMALS: no joint enlargement GENERAL: Yes edema (4+ BL edema on very large legs, R>L) Neuro: COMMON NORMALS: patient oriented x3 and moves all extremities SENSORIUM/ORIENTATION: Yes alert Skin: COMMON NORMALS: no rashes or lesions noted GENERAL SKIN EXAM: no rashes or lesions noted RASHES: rashes noted (pale erythema post R calf ext dist around R ankle to entire R foot) WOUNDS: Yes wounds noted (ulcer post R calf, 4 cm, shallow, no underm/tunn, min clear drain) Urinary Catheter Management^: Anglin: Cath Placed During This Visit: yes Reason for Continuing Indwelling Catheter: Acute Urinary Retention or Obstruction Urinary Catheter Date of Insertion: 06/30/21 Urinary Catheter Time of Insertion: 15:30 Data : 07/04/21 05:15 07/04/21 05:15 Micro: Microbiology 07/02/21 16:40 Blood Culture - Preliminary Blood NEGATIVE TO DATE 07/02/21 16:46 Blood Culture - Preliminary Blood NEGATIVE TO DATE 07/02/21 14:46 MRSA Culture - Final Nose A&P Assessment and plan (1) CHF exacerbation: Possible slight over-diuresis Holding diuretics due to increasing creatinine Monitor daily weights Status: Acute Qualifiers: Heart failure type: diastolic Qualified Code(s): I50.33 - Acute on chronic diastolic (congestive) heart failure (2) Diastolic heart failure: History of grade 3 diastolic dysfunction on echo. Valvular heart disease. Status: Acute Qualifiers: Heart failure chronicity: acute on chronic Qualified Code(s): I50.33 - Acute on chronic diastolic (congestive) heart failure (3) Aortic stenosis: Status: Acute Qualifiers: Cardiac valve disease etiology: nonrheumatic Qualified Code(s): I35.0 - Nonrheumatic aortic (valve) stenosis (4) Atrial fibrillation, chronic: Continue diltiazem, carvedilol, apixaban. Status: Acute (5) Calf ulcer: Will culture noted Wound cultures growing E. coli and stenotrophomonas. Continue with Levaquin to finish off a 7-day course. Day 3 today. Wound care Status: Acute (6) Cellulitis of right foot: Good improvement with subsiding/resolving erythema. Augmentin/doxycycline. No DVT on venous duplex ultrasound. Status: Acute (7) High risk medications (not anticoagulants) long-term use: Discussed with her increased risk of cardiovascular events, [place], CVA with celecoxib, in addition to other risks including kidney injury, gastritis, hypertension, advised her not to use this medication any further especially in the setting of underlying cardiac disease. Discussed with her primary provider and pain management team. Status: Acute Attestations Medical Necessity Statement*: continue hospitalization for management of worsening renal dysfunction and wound infection Time Spent in Patient Care: Greater than 35 minutes (>than 50% of time spent in counselling and/or direct pt care on unit). 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
[2021-07-04 20:58] LABS: Anion Gap 17.6 (5-19); Carbon Dioxide 28 mmol/L (22-29)
[2021-07-05] VITALS (7 sets, daily range): BP systolic 111–121; BP diastolic 70–81; PULSE 80–100; RESP 16–18; TEMP 36.6–37.1; O2SAT 93–96
[2021-07-05 06:19] LABS: Basophils % 0.4 %; Eosinophils # 0.1 10^3/uL (0.0-0.8); Eosinophils % 2.6 %; Hematocrit 42.4 % (37.0-47.0); Hemoglobin 13.3 g/dL (11.5-15.3); Lymphocytes # 1.8 10^3/uL (0.8-4.8); Lymphocytes % 33.8 %; Mean Corpuscular HGB Conc 31.4 g/dL (30.0-36.0); Mean Corpuscular Hemoglobin 30.6 pg (28.0-34.0); Mean Corpuscular Volume 97.7 fl (81-99); Mean Platelet Volume 10.6 fL (7.4-10.4); Monocytes # 0.6 10^3/uL (0.2-0.9); Monocytes % 11.1 %; Neutrophils # 2.81 10^3/uL (1.8-7.7); Neutrophils % 51.9 %; Nucleated Red Blood Cells % 0 %; Platelet Count 183 10^3/cmm (130-400); Red Blood Count 4.34 10^6/uL (4.1-5.3); Red Cell Distribution Width 14.6 % (12.1-15.1); White Blood Count 5.4 10^3/uL (4.0-10.0)
[2021-07-05] MEDS: levoFLOXacin 500 mg Tablet PO (06:34)
[2021-07-05 06:42] LABS: Alanine Aminotransferase 26 U/L (0-33); Albumin Level 3.8 g/dL (3.5-5.2); Alkaline Phosphatase 103 IU/L (35-105); Anion Gap 14.5 (5-19); Aspartate Amino Transferase 33 U/L (0-32); Blood Urea Nitrogen 43 mg/dL (6-20); Calcium 9.6 mg/dL (8.5-10.5); Carbon Dioxide 25 mmol/L (22-29); Chloride 102 mmol/L (98-107); Globulin 3.4 g/dL (1.3-4.6); Glomerular Filtration Rate 52.2 mL/min (90-130); Glucose 91 mg/dL (65-115); Osmolality Calculated 294 mOsm/kg (285-295); Potassium 4.5 mmol/L (3.5-5.1); Sodium 137 mmol/L (136-145); Total Bilirubin 1.1 mg/dL (0.15-1.2); Total Protein 7.2 g/dL (6.6-8.7)
--- NOTE | 2021-07-05 08:41 | PM.DCS ---
Discharge Providers Date of Admission: 06/30/21 11:32 Date of Discharge: July 05, 2021 Attending Provider at Admission: Du Sanders Attending Provider at Discharge: Padma Ureña Primary Care Provider: MADISYN Bolden Diagnoses at Discharge Discharge Diagnosis (1) Diastolic heart failure: Status: Resolved Qualifiers: Heart failure chronicity: acute on chronic Qualified Code(s): I50.33 - Acute on chronic diastolic (congestive) heart failure (2) Aortic stenosis: Status: Resolved Qualifiers: Cardiac valve disease etiology: nonrheumatic Qualified Code(s): I35.0 - Nonrheumatic aortic (valve) stenosis (3) Atrial fibrillation, chronic: Status: Resolved (4) Prerenal azotemia: Status: Resolved Reason for Visit Reason for Visit: CHEST PAIN, FLUID RETENTION, SENT FROM [facility] Hospital Course 50-year-old lady with HFpEF, valvular heart disease including moderate aortic stenosis, moderate mitral regurgitation, grade 3 diastolic dysfunction on the most recent echo, morbid obesity, chronic lower extremity edema, worse since the onset of congestive heart failure, asthma, HTN, hypothyroidism, osteoarthritis of the knees for which she takes Celebrex, is admitted due to worsening dyspnea on exertion, orthopnea, lower extremity edema, weight gain reported of over 50 pounds over the last 3 months, without adequate response to her outpatient diuretic, Lasix 80 mg daily. Recently she has also had some redness extending from posterior right calf shallow ulceration and to and around the right foot. She is applying Bactrim soft and is taking Augmentin for this which she had just started. She reports mild chills going down her spine. Denies fever. He is having a headache. Has been having some nausea. Denies diarrhea. Denies cough. Shortness of breath is with exertion and with laying back. Lives at home with her who has not been ill and has been vaccinated for COVID-19. She has not been vaccinated. Upon admission to hospital patient was seen by cardiology. Started on diuretics. Noted significant improvement. Also started on antibiotics for lower extremity wound. Culture showed poly organism. Remained afebrile. Discharged in stable condition. Physical Exam Const: COMMON NORMALS: no acute distress, patient oriented x3 and alert GENERAL APPEARANCE: cooperative NUTRITIONAL APPEARANCE: obese morbidly obese ORIENTATION/CONSCIOUSNESS: Yes awake HENMT: COMMON NORMALS: oropharynx normal Neck/C-Spine: COMMON NORMALS: no JVD Resp: COMMON NORMALS: normal respiratory effort AUSCULTATION: crackles Laterality: bilateral (base) Cardio: COMMON NORMALS: no JVD, regular rhythm, S1 normal heart sound present, S2 normal heart sound present and No murmurs present (Cardio) RHYTHM: regular rhythm HEART SOUNDS: S1 normal heart sound present and S2 normal heart sound present GI: COMMON NORMALS: Normal to inspection, nondistended, normoactive bowel sounds present, Soft to palpation and non-tender PALPATION: Yes Soft to palpation Extremity: COMMON NORMALS: no joint enlargement GENERAL: Yes edema (4+ BL edema on very large legs, R>L) Neuro: COMMON NORMALS: patient oriented x3 and moves all extremities SENSORIUM/ORIENTATION: Yes alert Skin: COMMON NORMALS: no rashes or lesions noted GENERAL SKIN EXAM: no rashes or lesions noted RASHES: rashes noted (pale erythema post R calf ext dist around R ankle to entire R foot) WOUNDS: Yes wounds noted (ulcer post R calf, 4 cm, shallow, no underm/tunn, min clear drain) Urinary Catheter Management^: Anglin: Cath Placed During This Visit: yes, but has since been removed by the nurse Reason for Continuing Indwelling Catheter: Decision to DC Catheter Urinary Catheter Date of Insertion: 06/30/21 Urinary Catheter Time of Insertion: 15:30 Date Urinary Catheter Removed: 07/05/21 Time Urinary Catheter Discontinued: 18:10 Discharge Data Data Completed and Pending: Completed Studies During Hospitalization Category Date Time Status XR chest 1V bridger ble 07459 Urgent Exams 06/30/21 09:39 [place] [address] Routin e Ultrasound 07/01/21 06:00 Completed US soft tissue/ex tremity 34161 Rout ine Ultrasound 07/01/21 11:57 Completed Vitals: Last Vital Signs Temp 97.8 F 07/05/21 16:50 Pulse 80 07/05/21 16:50 Resp 16 07/05/21 16:50 BP 121/81 07/05/21 16:50 Pulse Ox 93 07/05/21 16:50 Discharge Plan Discharge Patient Disposition: Home Condition: Stable Prescriptions: Continued losartan 100 mg tablet 100 mg PO DAILY Qty: 90 RF: 3 Eliquis 5 mg tablet 5 mg PO BID Qty: 180 RF: 3 diltiazem HCl 120 mg capsule,extended release 24hr 120 mg PO DAILY Qty: 90 RF: 3 mupirocin 2 % ointment 1 applic topical BID RF: 0 Lactobacillus acidophilus 500 million cell capsule 500 mmu cells PO BID RF: 0 potassium chloride 10 mEq tablet extended release 20 meq PO BID Qty: 120 RF: 3 metoclopramide HCl [Reglan] 10 mg tablet 10 mg PO Q8H PRN (Reason: nausea and vomiting) Qty: 10 RF: 0 diphenhydramine HCl [Benadryl] 25 mg capsule 25 mg PO Q8H PRN (Reason: motion sickness) Qty: 10 RF: 0 Benadryl Allergy 25 mg Tablet 25 mg PO TID PRN (Reason: Allergy Symptoms) RF: 0 Discontinued multivitamin Tablet 1 tab PO DAILY RF: 0 carvedilol 25 mg tablet 25 mg PO Q12H Qty: 180 RF: 3 amoxicillin-pot clavulanate 875-125 mg tablet 1 tab PO BID RF: 0 metolazone 2.5 mg tablet 2.5 mg PO BID Qty: 60 RF: 3 spironolactone 25 mg tablet 25 mg PO DAILY Qty: 90 RF: 3 furosemide 40 mg tablet 80 mg PO DAILY RF: 0 celecoxib 100 mg capsule 100 mg PO DAILY RF: 0 No Action furosemide 40 mg tablet 40 mg PO DAILY RF: 0 Discharge Orders: Discharge Order (Routine); Ordered 07/05/21 Ordered By: Padma Ureña Referrals: Elisa Morgan FNP [Nurse Practitioner] - 07/09/21 9:15 am Abbasi,MADISYN Torres [Primary Care Provider] - 07/09/21 2:30 pm [facility], [Staff Physician] - 07/11/21 1:30 pm Discharge Diet: Cardiac Discharge Activity: Increase activity as tolerated Patient Instructions: Levofloxacin (By mouth), Opioid Safety Activity Restrictions/Additional Instructions: Follow-up with Elisa Morgan in 7 days, follow-up with Dr. Lai in 6 to 8 weeks. Check BMP in 7 days for Discharge Attestations Time Spent in Discharge Care*: greater than 30 min Specific Discharge Activities: educating patient, educating and/or supporting family/caregiver, discussing with pcp/other providers, discussing with case planner/social workers/dc planners and evaluating patient/reviewing data Status at Discharge: Cognitive status at discharge: cognitively intact, Behavioral status at discharge: cooperative, Quality Metrics Clinical Quality Measures During this hospital stay, did patient experience: None Coding Level of Care Code Acute g FW BERENICE note Diagnoses Diastolic heart failure I50.33 Heart failure chronicity: acute on chronic Aortic stenosis I35.0 Cardiac valve disease etiology: nonrheumatic Atrial fibrillation, chronic I48.20 Prerenal azotemia R79.89
[2021-07-05] MEDS: apixaban 5 mg Tablet PO (10:26)
[2021-07-05] MEDS: dilTIAZem ER (24HR) 120 mg Capsule PO (10:26)
[2021-07-05] MEDS: mupirocin oint 22 gm 1 APPLIC TOPICAL (10:27)
[2021-07-05] MEDS: potassium chloride ER 20 mEq Tablet 40 MEQ PO (10:27)
--- NOTE | 2021-07-05 17:38 | P.PN_ITS ---
Subjective Subjective: Interval history: Feeling better creatinine has improved. We will switch him to p.o. Lasix Medications: Reviewed: Yes Vitals/I&O/Wt Last Vital Signs Temp 97.8 F 07/05/21 16:50 Pulse 80 07/05/21 16:50 Resp 16 07/05/21 16:50 BP 121/81 07/05/21 16:50 Pulse Ox 93 07/05/21 16:50 07/05/21 07/05/21 07/05/21 06:59 14:59 22:59 Intake Total 240 / 240 Output Total 1150 / 3550 1200 / 1200 Balance -1150 / -2470 -960 / -960 Weight last 48 hrs Weight 364 lb Weight 368 lb 5 oz Physical Exam Narrative: EXAM NARRATIVE: GENERAL: Patient is alert, awake and oriented x3. Sitting in the chair. Appear to be stable NECK: No jugular vein distension. HEENT: No cyanosis. No icterus. No pallor. HEART: Regular S1 and S2. No murmur, rub or gallop. LUNGS: Clear to auscultate bilaterally. ABDOMEN: Firm, nontender and nondistended. Positive bowel sounds. No guarding, rebound or tenderness. Increased abdominal girth with abdominal wall edema CENTRAL NERVOUS SYSTEM: Grossly nonfocal. EXTREMITIES: Lower extremities without edema bilaterally. Urinary Catheter Management^: Anglin: Cath Placed During This Visit: yes Reason for Continuing Indwelling Catheter: Acute Urinary Retention or Obstruction Urinary Catheter Date of Insertion: 06/30/21 Urinary Catheter Time of Insertion: 15:30 Data : 07/05/21 05:15 07/05/21 05:15 A&P Assessment and plan (1) Diastolic heart failure: well compensated. I will switch patient to p.o. Lasix 40 mg twice a day along with potassium 20 mEq twice a day Status: Acute Qualifiers: Heart failure chronicity: acute on chronic Qualified Code(s): I50.33 - Acute on chronic diastolic (congestive) heart failure (2) Aortic stenosis: Mild left stenosis at the moment not much contributing to heart failure continue to monitor Status: Acute Qualifiers: Cardiac valve disease etiology: nonrheumatic Qualified Code(s): I35.0 - Nonrheumatic aortic (valve) stenosis (3) Atrial fibrillation, chronic: On anticoagulation rate controlled Status: Acute (4) Prerenal azotemia: It has improved. Status: Acute Attestations Medical Necessity Statement*: Patient can be discharged home. Coding Level of Care Code Established Pt Acute Social Work Assistant for Marisa Herrera Patient Type Established History Detailed Exam Detailed Medical Decision Making Moderate Complexity Diagnoses Diastolic heart failure I50.33 Heart failure chronicity: acute on chronic Aortic stenosis I35.0 Cardiac valve disease etiology: nonrheumatic Atrial fibrillation, chronic I48.20 Prerenal azotemia R79.89
== END 2021-07-05 18:15 | disposition home or self-care (01) | DRG 291 ==
LOC: ER 11:59 → MEDSURG 12:10
PROVIDERS: Student in an Organized Health Care Education/Training Program; Admitting Provider Internal Medicine; Emergency Provider Emergency Medicine; PCP Nurse Practitioner Family; Visit Provider Hospitalist
DX: I11.0 Hypertensive heart disease with heart failure (principal); I50.33 Acute on chronic diastolic (congestive) heart failure; L03.115 Cellulitis of right lower limb; L97.219 Non-pressure chronic ulcer of right calf with unspecified severity; I48.20 Chronic atrial fibrillation, unspecified; Z68.44 Body mass index [BMI] 60.0-69.9, adult; I35.0 Nonrheumatic aortic (valve) stenosis; I34.0 Nonrheumatic mitral (valve) insufficiency; E66.01 Morbid (severe) obesity due to excess calories; I87.2 Venous insufficiency (chronic) (peripheral); B96.20 Unspecified Escherichia coli [E. coli] as the cause of diseases classified elsewhere; B96.89 Other specified bacterial agents as the cause of diseases classified elsewhere; R79.89 Other specified abnormal findings of blood chemistry; J45.909 Unspecified asthma, uncomplicated; E03.9 Hypothyroidism, unspecified; M17.0 Bilateral primary osteoarthritis of knee; Z79.01 Long term (current) use of anticoagulants; Z82.49 Family history of ischemic heart disease and other diseases of the circulatory system; Z79.899 Other long term (current) drug therapy
CPT/HCPCS: 36415; 36416; 51702; 71045; 76882; 80048; 80053; 80061; 82962; 83036; 83540; 83550; 83735; 83880; 84145; 84436; 84439; 84443; 84481; 84484; 85025; 87040; 87070; 87075; 87077; 87186; 87205; 87641; 93005; 93971; 94664; 96374; 99285; J1940; J3475; J8597

== ENCOUNTER → 2021-07-09 10:11 | Outpatient (BNVA) | payer BC, SELFPAY | PROVIDERS: PCP Nurse Practitioner Family; Visit Provider Nurse Practitioner Family | DX: I48.91 Unspecified atrial fibrillation (principal); I50.9 Heart failure, unspecified | CPT/HCPCS: 80048; 83880 ==

== ENCOUNTER 2021-07-11 13:03 | Outpatient (CLI) | payer BC, SELFPAY | END 2021-07-11 13:04 | disposition home or self-care (01) | LOC: WOUND 13:03 | PROVIDERS: PCP Nurse Practitioner Family; Visit Provider Thoracic Surgery (Cardiothoracic Vascular Surgery) | DX: L03.115 Cellulitis of right lower limb (principal); I10 Essential (primary) hypertension | CPT/HCPCS: 97597; G0463 ==

== ENCOUNTER 2021-07-18 10:40 | Outpatient (CLI) | payer BC, SELFPAY | END 2021-07-18 10:41 | disposition home or self-care (01) | LOC: WOUND 10:41 | PROVIDERS: PCP Nurse Practitioner Family; Visit Provider Nurse Practitioner Family | DX: L03.115 Cellulitis of right lower limb (principal); I10 Essential (primary) hypertension | CPT/HCPCS: 11042 ==

== ENCOUNTER 2021-07-25 09:46 | Outpatient (CLI) | payer BC, SELFPAY | END 2021-07-25 09:47 | disposition home or self-care (01) | LOC: WOUND 09:46 | PROVIDERS: PCP Nurse Practitioner Family; Visit Provider Nurse Practitioner Family | DX: L03.115 Cellulitis of right lower limb (principal); I10 Essential (primary) hypertension | CPT/HCPCS: 11042 ==

== ENCOUNTER 2021-07-25 10:59 | Outpatient (RCR) | payer BC, SELFPAY | END 2021-07-31 23:59 | disposition home or self-care (01) | LOC: SPT 10:59 | PROVIDERS: PCP Nurse Practitioner Family; Referring Provider Thoracic Surgery (Cardiothoracic Vascular Surgery); Visit Provider Thoracic Surgery (Cardiothoracic Vascular Surgery) | DX: I89.0 Lymphedema, not elsewhere classified (principal) | CPT/HCPCS: 97140; 97161 ==

== ENCOUNTER 2021-08-01 06:00 | Outpatient (RCR) | payer BC, SELFPAY | END 2021-08-08 23:59 | disposition home or self-care (01) | LOC: SPT 06:00 | PROVIDERS: PCP Nurse Practitioner Family; Visit Provider Thoracic Surgery (Cardiothoracic Vascular Surgery) | DX: I89.0 Lymphedema, not elsewhere classified (principal); I87.2 Venous insufficiency (chronic) (peripheral) | CPT/HCPCS: 97140 ==

== ENCOUNTER 2021-08-08 14:37 | Outpatient (CLI) | payer BC, SELFPAY | END 2021-08-08 14:38 | disposition home or self-care (01) | LOC: WOUND 14:37 | PROVIDERS: PCP Nurse Practitioner Family; Visit Provider Thoracic Surgery (Cardiothoracic Vascular Surgery) | DX: Z09 Encounter for follow-up examination after completed treatment for conditions other than malignant neoplasm (principal) | CPT/HCPCS: 99212 ==

== ENCOUNTER 2023-03-13 07:53 | Emergency (ER) | payer BC, SELFPAY ==
[2023-03-13 07:55] VITALS: BP 89/59; PULSE 89; RESP 14; O2SAT 99
--- NOTE | 2023-03-13 08:00 | ECG_ITS ---
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 Measurements Intervals [place] Rate: 95 P: 0 NM: 0 QRS: 50 QRSD: 108 T: 40 QT: 344 QTc: 434 Interpretive Statements ATRIAL FIBRILLATION LOW QRS VOLTAGE IN PRECORDIAL LEADS [QRS DEFLECTION < 1.0 mV IN CHEST LEADS] ABNORMAL RHYTHM ECG Compared to ECG 06/30/2021 16:27:10 Low QRS voltage now present Myocardial infarct finding no longer present Electronically Signed On 03-13-2023 14:50:59 CDT by Saeid Ruiz M.D. [id number] [place]
--- NOTE | 2023-03-13 08:19 | XR_ITS ---
WS: [id number] Portable AP upright chest, 03/13/2023 Clinical Data: chest pain Comparison: Portable chest, 06/30/2021 Findings: No nodules, masses or effusions are seen. The heart is enlarged. The pulmonary vascularity is not increased. No pneumonia or pneumothorax is seen. Monitor leads are on the chest wall. XR/XR chest 1V portable [id number] Impression: No change in cardiomegaly.
--- NOTE | 2023-03-13 08:22 | W.ED.CHESTPA ---
HPI - Chest Pain General: Chief Complaint: Chest Pain Stated Complaint: Dizzy, Weakness, Chest pain Time Seen by Provider: 03/13/23 07:59 Source: patient Mode of arrival: ambulatory History of Present Illness: 52-year-old female presents to the emergency room complaining of brief episode of chest pain this morning. She is at work she began to feel weak lightheaded later she developed a little bit of chest discomfort she drove home. She is reporting a brief episode where she may have passed out in her car but does not recall. She has a history of aortic stenosis. She has not noticed any increased swelling in her lower extremities. MD complaint: chest pain Onset (ago): hour(s) Pain location: substernal Pain radiation: none Severity: mild Quality: aching Relieving factors: nothing Exacerbating factors: nothing Associated symptoms: Reports dyspnea; Deny abdominal pain, diaphoresis, fever(s), leg edema, nausea, palpitations, sense of impending doom, syncope or vomiting Treatment prior to arrival: none Review of Systems Const: Denies: fever(s) or diaphoresis ENMT: Denies: throat pain, ear or mastoid pain, nasal discharge or nasal congestion Card: Reports: chest pain; Denies: palpitations or syncope Resp: Reports: dyspnea GI: Denies: abdominal pain, nausea or vomiting : Denies: flank pain, difficulty voiding, dysuria, urinary frequency or urinary urgency Skin/Breast: Denies: rash or pruritus Neuro: Reports: dizziness [facility] PFSH: Medical History Aortic stenosis Asthma Atrial fibrillation, chronic Cardiomyopathy Diastolic heart failure HTN (hypertension) Hypothyroidism Nonadherence to medication Obesity Post hysterectomy menopause Surgical History H/O hysterectomy with oophorectomy History of cholecystectomy Family History Mother CAD (coronary artery disease) Clotting disorder Social History Alcohol intake: current Alcohol intake frequency: holidays/special occasions only Substance/Drug Use: never Lives independently: Yes Household members: spouse Marital status: Current occupational status: employed 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 Physical Exam Const: GENERAL APPEARANCE: cooperative and comfortable ORIENTATION/CONSCIOUSNESS: Yes awake, Yes oriented to person, Yes oriented to place and Yes oriented to time HENMT: COMMON NORMALS: normocephalic, atraumatic and hearing grossly normal bilaterally HEAD & SCALP: normocephalic and atraumatic Resp: COMMON NORMALS: normal respiratory effort, No retractions, No use of accessory muscles and clear to auscultation bilaterally AUSCULTATION: clear to auscultation bilaterally Cardio: COMMON NORMALS: regular rate, regular rhythm and No murmurs present (Cardio) RATE: regular rate RHYTHM: regular rhythm GI: COMMON NORMALS: Soft to palpation and No hepatosplenomegaly present AUSCULTATION: Yes normoactive bowel sounds PALPATION: Yes Soft to palpation, No Tenderness to palpation present (GI), No Guarding due to palpation present (GI) and Yes No hepatosplenomegaly present Extremity: COMMON NORMALS: normal to inspection, capillary refill normal, no clubbing, cyanosis or edema, no calf tenderness and no pedal edema Neuro: SENSORIUM/ORIENTATION: Yes oriented to person, Yes oriented to place and Yes oriented to time Skin: COMMON NORMALS: no rashes or lesions noted GENERAL SKIN EXAM: no rashes or lesions noted Course Vital Signs: Vital signs: Vital Signs Pulse Rate 91 03/13/23 11:17 Respiratory Rate 14 03/13/23 07:55 Blood Pressure 96/81 03/13/23 09:18 Pulse Oximetry 97 03/13/23 11:17 Oxygen Delivery Me thod Room Air 03/13/23 11:17 MDM - Chest Pain Medical Decision Making Cardiac enzymes and EKG unremarkable. No further chest pain at this time she has a mild cystitis. Discussed with the patient she would prefer to treat as an outpatient. She is feeling better at this time. Given dose of Rocephin return if she has further problems. Follow-up with cardiology. Medical Records I reviewed the patient's medical records. Lab Data I reviewed the patient's lab results. 03/13/23 08:37 03/13/23 08:37 Radiology Impressions Chest X-Ray 03/13/23 08:19 Impression: No change in cardiomegaly. Laboratory Results WBC 11.0 10^3/uL (4.0-10.0) H 03/13/23 08:37 RBC 4.74 10^6/uL (4.1-5.3) 03/13/23 08:37 Hgb 14.9 g/dL (11.5-15.3) 03/13/23 08:37 Hct 45.1 % (37.0-47.0) 03/13/23 08:37 MCV 95.1 fl (81-99) 03/13/23 08:37 MCH 31.4 pg (28.0-34.0) 03/13/23 08:37 MCHC 33.0 g/dL (30.0-36.0) 03/13/23 08:37 RDW 13.0 % (12.1-15.1) 03/13/23 08:37 Plt Count 240 10^3/cmm (130-400) 03/13/23 08:37 MPV 10.4 fL (7.4-10.4) 03/13/23 08:37 Neut % (Auto) 86.8 % 03/13/23 08:37 Lymph % (Auto) 10.3 % 03/13/23 08:37 Price % (Auto) 2.1 % 03/13/23 08:37 Eos % (Auto) 0.1 % 03/13/23 08:37 Baso % (Auto) 0.2 % 03/13/23 08:37 Neut # (Auto) 9.59 10^3/uL (1.8-7.7) H 03/13/23 08:37 Lymph # (Auto) 1.1 10^3/uL (0.8-4.8) 03/13/23 08:37 Price # (Auto) 0.2 10^3/uL (0.2-0.9) 03/13/23 08:37 Eos # (Auto) 0.0 10^3/uL (0.0-0.8) 03/13/23 08:37 Baso # (Auto) 0.0 10^3/uL (0.0-0.1) 03/13/23 08:37 Nucleated RBC % (auto) 0 % 03/13/23 08:37 Nucleated RBCs # 0.0 /100WBC 03/13/23 08:37 Sodium 133 mmol/L (136-145) L 03/13/23 08:37 Potassium 4.3 mmol/L (3.5-5.1) 03/13/23 08:37 Chloride 94 mmol/L (98-107) L 03/13/23 08:37 Carbon Dioxide 25 mmol/L (22-29) 03/13/23 08:37 Anion Gap 18.3 (5-19) 03/13/23 08:37 BUN 68 mg/dL (6-20) H 03/13/23 08:37 Creatinine 3.9 mg/dL (0.5-0.9) H 03/13/23 08:37 GFR Calculation 12.0 mL/min (90-130) L 03/13/23 08:37 Glucose 104 mg/dL (65-115) 03/13/23 08:37 Calculated Osmolality 296 mOsm/kg (285-295) H 03/13/23 08:37 Lactic Acid 1.3 mmol/L (0.5-2.2) 03/13/23 08:37 Calcium 9.6 mg/dL (8.5-10.5) 03/13/23 08:37 Total Bilirubin 0.5 mg/dL (0.15-1.2) 03/13/23 08:37 AST 22 U/L (0-32) 03/13/23 08:37 ALT 25 U/L (0-33) 03/13/23 08:37 Alkaline Phosphatase 78 U/L (35-105) 03/13/23 08:37 Creatine Kinase 117 U/L (26-192) 03/13/23 08:37 Troponin T Baseline 27 ng/L (0-10) H 03/13/23 08:37 Troponin T 120 Minute 21.18 ng/L (0-10) H 03/13/23 11:12 Delta Troponin T -5.82 ABS# (0-10) L 03/13/23 11:12 NT-Pro-B Natriuret Pep 1663 pg/mL (0-125) H 03/13/23 08:37 Total Protein 7.6 g/dL (6.6-8.7) 03/13/23 08:37 Albumin 4.3 g/dL (3.5-5.2) 03/13/23 08:37 Globulin 3.3 g/dL (1.3-4.6) 03/13/23 08:37 Urine Color Yellow (Yellow) 03/13/23 09:13 Urine Appearance Cloudy (CLEAR) A 03/13/23 09:13 Urine pH 5 (5-7) 03/13/23 09:13 Ur Specific [place] 1.020 (1.005-1.030) 03/13/23 09:13 Urine Protein Trace (Negative) 03/13/23 09:13 Urine Glucose (UA) 2+ (Normal) H 03/13/23 09:13 Urine Ketones 1+ (Negative) H 03/13/23 09:13 Urine Blood 2+ (Negative) H 03/13/23 09:13 Urine Nitrate Positive (Negative) H 03/13/23 09:13 Urine Bilirubin Neg (Negative) 03/13/23 09:13 Urine Urobilinogen Norm mg/dL (Negative) 03/13/23 09:13 Ur Leukocyte Esterase 2+ (Negative) H 03/13/23 09:13 Urine RBC 0-4 /hpf (0-2) H 03/13/23 09:13 Urine WBC >100 /hpf (0-5) H 03/13/23 09:13 Ur Squamous Epith Cells 10-15 /hpf (0-5) H 03/13/23 09:13 Amorphous Sediment Not Reportable 03/13/23 09:13 Urine Bacteria 2+ /hpf (NONE) H 03/13/23 09:13 Discharge Plan Discharge Patient Disposition: Home Clinical Impression: Atypical chest pain, Morbid obesity with BMI of 60.0-69.9, adult, Cardiomyopathy, Cystitis Condition: Stable Prescriptions: New Macrobid 100 mg capsule 100 mg PO Q12H 7 Days Qty: 14 0RF Rx Instructions: must administer with a meal/food No Action mupirocin 2 % ointment 1 applic topical BID Lactobacillus acidophilus 500 million cell capsule 500 mmu cells PO BID diltiazem HCl 120 mg capsule,extended release 24hr 120 mg PO BID furosemide 40 mg tablet 40 mg PO DAILY losartan 100 mg tablet 100 mg PO DAILY Qty: 30 0RF Rx Instructions: Make follow-up for further refills Eliquis 5 mg tablet 5 mg PO BID Qty: 60 1RF Rx Instructions: Needs follow-up for further refills potassium chloride 10 mEq tablet extended release 20 meq PO BID Qty: 120 0RF Rx Instructions: Must have appointment for further refills metoclopramide HCl [Reglan] 10 mg tablet 10 mg PO Q8H PRN (Reason: nausea and vomiting) Qty: 10 0RF diphenhydramine HCl [Benadryl] 25 mg capsule 25 mg PO Q8H PRN (Reason: motion sickness) Qty: 10 0RF Benadryl Allergy 25 mg Tablet 25 mg PO TID PRN (Reason: Allergy Symptoms) Discharge Orders: Discharge ED (Routine); Ordered 03/13/23 Ordered By: Mateusz Zhu Referrals: Abbasi,GLADYS TorresP [Primary Care Provider] - Discharge Diet: Usual diet Discharge Activity: Increase activity as tolerated Patient Instructions: Opioid Safety, Pain Management Stand Alone Forms: Work/School Release Coding Level of Care Code ED Sanitary Engineering Teacher for Marisa Herrera
[2023-03-13] MEDS: aspirin 81 mg Chew Tablet 324 MG PO (08:42)
[2023-03-13] MEDS: sodium chloride 0.9% 1,000 ML 999 ML IV (08:43)
[2023-03-13 08:51] LABS: Basophils % 0.2 %; Eosinophils % 0.1 %; Hematocrit 45.1 % (37.0-47.0); Hemoglobin 14.9 g/dL (11.5-15.3); Lymphocytes # 1.1 10^3/uL (0.8-4.8); Lymphocytes % 10.3 %; Mean Corpuscular Hemoglobin 31.4 pg (28.0-34.0); Mean Corpuscular Volume 95.1 fl (81-99); Mean Platelet Volume 10.4 fL (7.4-10.4); Monocytes # 0.2 10^3/uL (0.2-0.9); Monocytes % 2.1 %; Neutrophils # 9.59 10^3/uL (1.8-7.7); Neutrophils % 86.8 %; Nucleated Red Blood Cells % 0 %; Platelet Count 240 10^3/cmm (130-400); Red Blood Count 4.74 10^6/uL (4.1-5.3)
[2023-03-13 09:16] LABS: Lactic Sepsis W/Reflex 1.3 mmol/L (0.5-2.2); Troponin(5th) Baseline 27 ng/L (0-10)
[2023-03-13 09:18] VITALS: BP 96/81
[2023-03-13 09:23] LABS: Alanine Aminotransferase 25 U/L (0-33); Albumin Level 4.3 g/dL (3.5-5.2); Alkaline Phosphatase 78 U/L (35-105); Aspartate Amino Transferase 22 U/L (0-32); Blood Urea Nitrogen 68 mg/dL (6-20); Calcium 9.6 mg/dL (8.5-10.5); Carbon Dioxide 25 mmol/L (22-29); Chloride 94 mmol/L (98-107); Creatine Phosphokinase 117 U/L (26-192); Globulin 3.3 g/dL (1.3-4.6); Glucose 104 mg/dL (65-115); NT Pro B Type Natriuretic Pept 1663 pg/mL (0-125); Osmolality Calculated 296 mOsm/kg (285-295); Sodium 133 mmol/L (136-145); Total Bilirubin 0.5 mg/dL (0.15-1.2); Total Protein 7.6 g/dL (6.6-8.7)
[2023-03-13 09:27] LABS: Anion Gap 18.3 (5-19); Potassium 4.3 mmol/L (3.5-5.1)
[2023-03-13 09:34] LABS: Blood Urine 2+ (Negative); Glucose Urine UA 2+ (Normal); Ketones Urine 1+ (Negative); Protein Urine Trace (Negative); Urine Appearance Cloudy (CLEAR); Urine Color Yellow (Yellow); pH Urine 5 (5-7)
[2023-03-13 09:35] LABS: Add Urine Microscopic? YES; Bilirubin Urine Neg (Negative); Leukocyte Esterase Urine 2+ (Negative); Nitrate Urine Positive (Negative); Urobilinogen Urine Norm (Negative)
[2023-03-13 09:44] LABS: Add Urine Culture? Yes; Bacteria Urine 2+ /hpf; RBC Urine 0-4 /hpf (0-2); WBC Urine >100 /hpf (0-5)
--- NOTE | 2023-03-13 10:19 | ECG_ITS ---
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 Measurements Intervals [place] Rate: 87 P: 0 AK: 0 QRS: 48 QRSD: 101 T: 43 QT: 353 QTc: 426 Interpretive Statements ATRIAL FIBRILLATION ABNORMAL RHYTHM ECG Compared to ECG 03/13/2023 08:00:48 No significant changes Electronically Signed On 03-13-2023 14:53:37 CDT by Saeid Ruiz M.D. [id number]
[2023-03-13] MEDS: cefTRIAXone 1,000 MG in sodium chloride 0.9% (plus) 50 ML 100 MG IV (10:39)
[2023-03-13 11:17] VITALS: PULSE 91; O2SAT 97
[2023-03-13 11:48] LABS: Troponin 5 2HR 21.18 ng/L (0-10); Troponin 5 2HR Delta -5.82 ABS# (0-10)
== END 2023-03-13 12:41 | disposition home or self-care (01) ==
PROVIDERS: Emergency Provider Family Medicine; PCP Nurse Practitioner Family
DX: I42.9 Cardiomyopathy, unspecified (principal); R07.89 Other chest pain; E66.01 Morbid (severe) obesity due to excess calories; Z68.44 Body mass index [BMI] 60.0-69.9, adult; N30.90 Cystitis, unspecified without hematuria; I10 Essential (primary) hypertension; I48.91 Unspecified atrial fibrillation
CPT/HCPCS: 71045; 80053; 81001; 82550; 83605; 83880; 84484; 85025; 87077; 87086; 87186; 93005; 96361; 96374; 99285; J0696; J7030

== ENCOUNTER 2023-03-16 17:09 | Emergency (ER) | payer BC, OTHER, SELFPAY ==
[2023-03-16 18:21] VITALS: BP 103/43; PULSE 118; RESP 16; TEMP 36.4; O2SAT 97; BMI 68.9
--- NOTE | 2023-03-16 18:29 | ECG_ITS ---
[facility] Test Date: 2023-03-16 Pat Name: Venus Machado Department: Room: Gender: Female [employer]: : 1970 Requested By: Mike Ghosh Order Number: [id number] José MD: Ellen Benjamin M.D. Measurements Intervals [place] Rate: 100 P: 0 MA: 0 QRS: 51 QRSD: 94 T: 45 QT: 334 QTc: 431 Interpretive Statements ATRIAL FIBRILLATION WITH RAPID VENTRICULAR RESPONSE ABNORMAL RHYTHM ECG Compared to ECG 03/13/2023 10:23:49 No significant changes Electronically Signed On 03-16-2023 21:06:05 CDT by Ellen Benjamin M.D. [email or web address]
--- NOTE | 2023-03-16 18:59 | XRR_ITS ---
PROCEDURE INFORMATION: Exam: XR Chest Exam date and time: 03/16/2023 7:34 PM Age: 52 years old Clinical indication: Pain; Chest pressure; Additional info: Chest pain TECHNIQUE: Imaging protocol: Radiologic exam of the chest. Views: 1 view. COMPARISON: CR XR chest 1V portable [id number] 03/13/2023 8:49 AM FINDINGS: Lungs: Unremarkable. No consolidation. Pleural spaces: Unremarkable. No pleural effusion. No pneumothorax. Heart/Mediastinum: Borderline to mild cardiomegaly. Bones/joints: Moderate thoracic spondylosis. Other findings: Lordotic chest x-ray. XR/XR chest 1V portable [id number] IMPRESSION: Borderline to mild cardiomegaly.
[2023-03-16] MEDS: aspirin 325 mg Tablet PO (19:28)
[2023-03-16 20:36] LABS: Basophils % 0.2 %; Eosinophils # 0.1 10^3/uL (0.0-0.8); Eosinophils % 1.5 %; Hematocrit 46.3 % (37.0-47.0); Hemoglobin 14.7 g/dL (11.5-15.3); Lymphocytes # 1.6 10^3/uL (0.8-4.8); Lymphocytes % 19.1 %; Mean Corpuscular HGB Conc 31.7 g/dL (30.0-36.0); Mean Corpuscular Hemoglobin 30.9 pg (28.0-34.0); Mean Corpuscular Volume 97.3 fl (81-99); Mean Platelet Volume 10.3 fL (7.4-10.4); Monocytes # 0.7 10^3/uL (0.2-0.9); Neutrophils # 5.97 10^3/uL (1.8-7.7); Nucleated Red Blood Cells % 0 %; Platelet Count 220 10^3/cmm (130-400); Red Blood Count 4.76 10^6/uL (4.1-5.3); White Blood Count 8.4 10^3/uL (4.0-10.0)
[2023-03-16 20:54] LABS: Troponin(5th) Baseline 18 ng/L (0-10)
[2023-03-16 20:55] LABS: Alanine Aminotransferase 29 U/L (0-33); Albumin Level 3.5 g/dL (3.5-5.2); Alkaline Phosphatase 87 U/L (35-105); Aspartate Amino Transferase 22 U/L (0-32); Blood Urea Nitrogen 48 mg/dL (6-20); Calcium 9.5 mg/dL (8.5-10.5); Carbon Dioxide 25 mmol/L (22-29); Chloride 98 mmol/L (98-107); Globulin 3.6 g/dL (1.3-4.6); Glomerular Filtration Rate 23.3 mL/min (90-130); Glucose 78 mg/dL (65-115); Magnesium 2.1 mg/dL (1.7-2.3); Osmolality Calculated 297 mOsm/kg (285-295); Sodium 138 mmol/L (136-145); Total Bilirubin 0.3 mg/dL (0.15-1.2); Total Protein 7.1 g/dL (6.6-8.7)
[2023-03-16 21:11] LABS: Anion Gap 19.2 (5-19); Potassium 4.2 mmol/L (3.5-5.1)
[2023-03-16 21:39] LABS: Add Urine Microscopic? YES; Bilirubin Urine Neg (Negative); Blood Urine 2+ (Negative); Glucose Urine UA 2+ (Normal); Ketones Urine 1+ (Negative); Leukocyte Esterase Urine Trace (Negative); Nitrate Urine Negative (Negative); Protein Urine Neg (Negative); Urine Appearance Cloudy (CLEAR); Urine Color Yellow (Yellow); Urobilinogen Urine Norm (Negative); pH Urine 5 (5-7)
[2023-03-16 21:43] LABS: Squamous Epithelial Cell Urine 40-55 /hpf (0-5)
[2023-03-16 21:44] LABS: Bacteria Urine 2+ /hpf
[2023-03-16 21:46] VITALS: BP 97/59; PULSE 91; RESP 18; O2SAT 97
--- NOTE | 2023-03-16 21:54 | CTR_ITS ---
PROCEDURE INFORMATION: Exam: CT Head Without Contrast Exam date and time: 03/16/2023 10:04 PM Age: 52 years old Clinical indication: Visual disturbance; Patient HX: Patient states she is having difficulty seeing after having a syncopal episode this evening. ; Additional info: [place] in vision TECHNIQUE: Imaging protocol: Computed tomography of the head without contrast. Radiation optimization: All CT scans at this facility use at least one of these dose optimization techniques: automated exposure control; mA and/or kV adjustment per patient size (includes targeted exams where dose is matched to clinical indication); or iterative reconstruction. REPORTING DATA: Count of CT and Cardiac NM exams in prior 12 months: This patient has received 0 known CTs and 0 known cardiac nuclear medicine studies in the 12 months prior to the current study. COMPARISON: CT angio headneck* [id number] 05/04/2021 3:39 PM RADIATION DOSE METRICS: Total DLP (mGy-cm): 957.29 FINDINGS: Brain: Normal. No hemorrhage. Unremarkable white matter. No mass effect. Cerebral ventricles: No ventriculomegaly. Paranasal sinuses: Visualized sinuses are unremarkable. No fluid levels. Mastoid air cells: Visualized mastoid air cells are well aerated. Bones/joints: Unremarkable. No acute fracture. Soft tissues: Unremarkable. CT/CT head wo con* [id number] IMPRESSION: No acute intracranial abnormality.
[2023-03-16] MEDS: cefTRIAXone 1,000 MG in sodium chloride 0.9% (plus) 50 ML 100 MG IV (22:49)
[2023-03-16] MEDS: sodium chloride 0.9% 1,000 ML 999 ML IV (23:20)
[2023-03-16 23:21] LABS: Troponin 5 2HR 17.31 ng/L (0-10); Troponin 5 2HR Delta -0.69 ABS# (0-10)
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
--- NOTE | 2023-03-17 00:15 | CTR_ITS ---
PROCEDURE INFORMATION: Exam: CT Neck Without Contrast Exam date and time: 03/17/2023 12:53 AM Age: 52 years old Clinical indication: Patient HX: C/O diffuse neck pain. TECHNIQUE: Imaging protocol: Computed tomography of the neck without contrast. Radiation optimization: All CT scans at this facility use at least one of these dose optimization techniques: automated exposure control; mA and/or kV adjustment per patient size (includes targeted exams where dose is matched to clinical indication); or iterative reconstruction. REPORTING DATA: Count of CT and Cardiac NM exams in prior 12 months: This patient has received [address] and 0 known cardiac nuclear medicine studies in the 12 months prior to the current study. COMPARISON: CT angio headneck* [id number] 05/04/2021 3:39 PM RADIATION DOSE METRICS: Total DLP (mGy-cm): 563.91 FINDINGS: Dental: Examination is limited secondary to metallic artifact from dental fillings and/or dental hardware. Periapical lucency/tooth abscesses involving the right maxillary 1st molar. Periapical lucency/tooth abscesses involving the left maxillary 2nd molar and left mandibular 1st and 2nd molars. Pharynx: Unremarkable. No significant tonsillar enlargement. Larynx: Unremarkable. Epiglottis is normal. Prevertebral and retropharyngeal spaces: Unremarkable. Salivary glands: Normal. Glands are normal in size. Thyroid: Normal. No enlarged or calcified nodules. Lymph nodes: Unremarkable. No lymphadenopathy. Trachea: Visualized trachea is unremarkable. Lungs: Unremarkable as visualized. Bones/joints: Moderate to severe multilevel spine degenerative changes including degenerative disc disease, spondylosis and facet degenerative changes. Minimal levoscoliosis. Multilevel bilateral foraminal stenosis. Vasculature: Mild calcified carotid artery disease. Soft tissues: Unremarkable. No significant soft tissue swelling. CT/CT neck wo con [id number] IMPRESSION: 1. Moderate to severe multilevel spine degenerative changes including degenerative disc disease, spondylosis and facet degenerative changes. 2. Minimal levoscoliosis. 3. Multilevel bilateral foraminal stenosis. 4. Periapical lucency/tooth abscesses involving the right maxillary 1st molar. 5. Periapical lucency/tooth abscesses involving the left maxillary 2nd molar and left mandibular 1st and 2nd molars.
[2023-03-17 01:33] VITALS: BP 113/90; PULSE 77; RESP 18; O2SAT 96
== END 2023-03-17 01:31 | disposition home or self-care (01) ==
PROVIDERS: Emergency Provider Family Medicine; PCP Nurse Practitioner Family
DX: R07.9 Chest pain, unspecified (principal); M79.10 Myalgia, unspecified site; N39.0 Urinary tract infection, site not specified; N19 Unspecified kidney failure; Z79.01 Long term (current) use of anticoagulants; I11.0 Hypertensive heart disease with heart failure; I50.30 Unspecified diastolic (congestive) heart failure
CPT/HCPCS: 36415; 70450; 70490; 71045; 80053; 81001; 83735; 84484; 85025; 93005; 96361; 96365; 99285; J0696; J7030

== ENCOUNTER 2023-04-28 14:46 | Outpatient (CLI) | payer OTHER, BC, SELFPAY ==
--- NOTE | 2023-04-28 14:56 | MR_ITS ---
WS: [id number] MRI CERVICAL SPINE NONCONTRAST TECHNIQUE: Sagittal T1, T2 and STIR imaging. Axial T2, gradient, and fiesta imaging. CLINICAL INFORMATION: CERVICALGIA/PARESTHESIA OF SKIN COMPARISON: CT 2020 FINDINGS: Straightening of the normal cervical lordosis. Alignment is unchanged since 09/13/2020. Mild spondylit ic changes. C2-C3: Mild facet arthropathy. Spinal canal and foramen are patent. C3-C4: No significant disc bulging. Spinal canal and foramen are patent. C4-C5: Disc osteophyte complex with disc space narrowing. Spinal canal is patent. Mild to moderate bi lateral bony foraminal narrowing. Mild facet arthropathy. C5-C6: Disc osteophyte complex with disc space narrowing.. Moderate RIGHT and mild LEFT bony foramina l narrowing. Mild facet arthropathy. Mild central canal stenosis. Slight contact of the RIGHT ventral cervical cord. C6-C7: Mildly osteophyte complex with endplate ridging. Moderate LEFT and mild RIGHT bony foraminal n arrowing. Spinal canal is patent. C7-T1: Mild osteophytic ridging eccentric to the LEFT. Mild LEFT greater than RIGHT bony foraminal na rrowing. Spinal canal is patent. Slight anterolisthesis T2 on T3. Tiny central protrusion T3-T4 with mild central canal stenosis and s light contact of the cord. Visualized brain stem structures: Normal. Prevertebral soft tissues: Normal. IMPRESSION: 1. Straightening of the normal cervical lordosis with mild spondylotic changes. 2. Mild to moderate bony foraminal narrowing worse at bilateral C4-5, RIGHT C5-6, LEFT C6-7 and LEFT C7-T1. 3. Mild central canal stenosis C5-6 with a small RIGHT paracentral protrusion and slight contact of the cervical cord. 4. Small central protrusion at T3-4 with slight contact of the thoracic cord.
== END 2023-04-28 14:47 | disposition home or self-care (01) ==
PROVIDERS: PCP Nurse Practitioner Family; Visit Provider Nurse Practitioner Family
DX: M48.02 Spinal stenosis, cervical region (principal); M53.82 Other specified dorsopathies, cervical region; M51.25 Other intervertebral disc displacement, thoracolumbar region; M47.812 Spondylosis without myelopathy or radiculopathy, cervical region; R20.2 Paresthesia of skin
CPT/HCPCS: 72141

== ENCOUNTER 2024-01-22 13:06 | Outpatient (CLI) | payer MEDICAID, SELFPAY ==
--- NOTE | 2024-01-22 13:00 | MM_ITS ---
WS: [id number] BILATERAL SCREENING DIGITAL TOMOSYNTHESIS MAMMOGRAM WITH CAD HISTORY: SCREENING COMPARISON: 08/19/2016, 08/16/2015 Bilateral CC and MLO views with tomosynthesis and synthetic mammography submitted. Computer aided det ection analyzed. Breast composition: The breasts are almost entirely fatty. No suspicious masses, microcalcifications or architectural distortion. MM/[place] [id number] IMPRESSION: BI-RADS: 1-Negative FOLLOW UP: 1 Year Follow-up
== END 2024-01-22 13:07 | disposition home or self-care (01) ==
LOC: MOBLMAM 13:10
PROVIDERS: PCP Nurse Practitioner Family; Visit Provider Nurse Practitioner Family
DX: Z12.31 Encounter for screening mammogram for malignant neoplasm of breast (principal); R92.313 Mammographic fatty tissue density, bilateral breasts
CPT/HCPCS: 77063; 77067

== ENCOUNTER 2025-02-17 11:40 | Outpatient (CLI) | payer MEDICAID, SELFPAY ==
--- NOTE | 2025-02-17 11:40 | MM_ITS ---
WS: [id number] SCREENING DIGITAL TOMOSYNTHESIS MAMMOGRAM WITH CAD HISTORY: SCREENING COMPARISON: 01/22/2024 and 08/19/2016 Bilateral CC and MLO with tomosynthesis views submitted. Synthetic mammography reviewed. Computer aided detection analyzed. Breast composition: The breasts are almost entirely fatty. No suspicious masses, microcalcifications or architectural distortion. Benign calcifications. MM/MM scr BI tomosynthesis [id number] IMPRESSION: BI-RADS: 2 - Benign. FOLLOW UP: 1 Year Follow-up
== END 2025-02-17 11:41 | disposition home or self-care (01) ==
LOC: MOBLMAM 11:42
PROVIDERS: PCP Nurse Practitioner Family; Visit Provider Nurse Practitioner Family
DX: Z12.31 Encounter for screening mammogram for malignant neoplasm of breast (principal)
CPT/HCPCS: 77063; 77067